=== PATIENT | female | born 1945 | race Caucasian/White ===

== ENCOUNTER 2020-06-09 13:49 | Inpatient (IN) | payer MEDICARE, OTHER ==
[~2020-06-09] VITALS: Ht 165.1 cm; Wt 108.7 kg
[~2020-06-09 13:49] MED LIST: ACET325T53 PO; ASCO500C17 PO; ASPI-1169 PO; BISA10SU11 RC; BUPR150T12 PO; DOCU-141 PO; GABA300C PO; LAMO200T2 PO; LEVO500T90 PO; MULT-439 PO; PANT40TA49 PO; RISP0.5T5 PO; TRAM50TA2 PO; ZINC220T4 PO
[2020-06-09] MEDS ORDERED: TRAM50TA2 PO (14:31)
[2020-06-09] MEDS ORDERED: RISP0.2515 PO (14:31)
[2020-06-09] MEDS ORDERED: ASCO500T10 PO (14:31)
[2020-06-09] MEDS ORDERED: ONDA4TAB5 PO (14:31)
[2020-06-09] MEDS ORDERED: ZINC50TA69 PO (14:31)
[2020-06-09] MEDS ORDERED: TEMA15CA PO (14:31)
[2020-06-09] MEDS ORDERED: ZINC56.713 TP (14:31)
[2020-06-09] MEDS ORDERED: ONDANSETRON HCL/PF 4 MG/2 ML VIAL IVP ONE (16:00)
[2020-06-09] MEDS ORDERED: MORPHINE SULFATE INJ 2 MG/ML DISP.SYRIN IV ONE (16:00)
[2020-06-09] MEDS ORDERED: MORPHINE SULFATE INJ 2 MG/ML DISP.SYRIN ONE (16:02)
[2020-06-09] MEDS ORDERED: ONDANSETRON HCL/PF 4 MG/2 ML VIAL ONE (16:02)
--- NOTE | 2020-06-09 16:17 | NUR ---
iv line inserted and morphine and zofran admin -pt stated she never really felt nauseaus before just was bringing up bile
--- NOTE | 2020-06-09 16:18 | NUR ---
us at bedside-
[2020-06-09 16:32] LABS: BASOPHILS # (AUTO) 0.1 /CMM (0.0-0.2); BASOPHILS % (AUTO) 0.8 % (0.0-2.0); CALCIUM, SERUM 9.3 mg/dL (8.5-10.1); CREATININE 1.2 mg/dL (0.6-1.3); EOSINOPHILS % (AUTO) 1.9 % (0.0-6.0); HEMATOCRIT 36 % (33-45); HEMOGLOBIN 11.8 g/dL (11.5-14.8); LYMPHOCYTES # (AUTO) 1.6 /CMM (0.8-4.8); LYMPHOCYTES % (AUTO) 14.8 % (20.0-44.0); MEAN CORPUSCULAR HGB CONC 33 g/dl (31.0-36.0); MEAN CORPUSCULAR VOLUME 78 fL (82-100); MONOCYTES # (AUTO) 0.6 /CMM (0.1-1.30); MONOCYTES % (AUTO) 5.8 % (2.0-12.0); NEUTROPHILS # (AUTO) 8.1 /CMM (1.8-8.9); NEUTROPHILS % (AUTO) 76.7 % (43.0-81.0); PLATELET COUNT (AUTO) 414 /CMM (150-450); POTASSIUM 4.2 mmol/L (3.5-5.1); RED BLOOD CELL COUNT(AUTO) 4.69 MIL/uL (4.0-5.2); WHITE BLOOD COUNT (AUTO) 10.5 K/uL (4.3-11.0)
--- NOTE | 2020-06-09 16:37 | NUR ---
pt refused to be straight cathed advised MD Slaughter-aware
[2020-06-09 16:38] LABS: BILIRUBIN,DIRECT 0.1 mg/dL (0.0-0.2); BILIRUBIN,TOTAL 0.3 mg/dL (0.2-1.0); TOTAL PROTEIN, SERUM 7.2 g/dL (6.4-8.2)
--- NOTE | 2020-06-09 16:45 | NUR ---
pt off th CT
--- NOTE | 2020-06-09 17:02 | NUR ---
pt back from ct
[2020-06-09] MEDS ORDERED: MEROPENEM 1,000 MG in IV NS 0.9% 100 ML IV ONE (17:30)
--- NOTE | 2020-06-09 17:30 | NUR ---
[facility] CALLED RESPIRATORY THERAPY ASSISTANT PAGED.
--- NOTE | 2020-06-09 18:31 | NUR ---
Covid 19 PCR test done-Rapid
--- NOTE | 2020-06-09 19:05 | NUR ---
rec'd report from catherine Rader for hi
--- NOTE | 2020-06-09 19:39 | NUR ---
COVID SWAB SAMPLE COLLECTED AND SENT TO THE LAB.
--- NOTE | 2020-06-09 20:07 | NUR ---
111-1 IS THE ROOM THE PT WILL BE MOVED TO PER NURSING WAREHOUSE OPERATIONS MANAGER.
--- NOTE | 2020-06-09 20:36 | NUR ---
gave report to BERNICE Jj for hi
--- NOTE | 2020-06-09 21:10 | NUR ---
ADMIT NOTE ADMITTED PT FROM ER TO ROOM 111-1 VIA [facility]. PT IS A/O X3, ABLE TO VERBALIZE NEEDS. ON ROOM AIR, O2 SAT 97%. NO SOB OR ANY RESPIRATORY DISTRESS. SAFETY TRANSFERRED FROM [facility] TO BED. NOTED WITH RIGHT BREAST FOLD EXCORIATION AND SACRUM WOUND. KEPT CLEAN AND DRY. WITH IV ON RIGHT HAND #22 PATENT AND INTACT. SAFETY MEASURES IMPLEMENTED. BED LOCKED AND IN LOWEST POSITION. SIDE RAILS UP X2. CALL LIGHT WITHIN REACH. WILL CONTINUE TO MONITOR.
--- NOTE | 2020-06-09 21:55 | NUR ---
RECEIVED REPORT FROM LAB, PATIENT IS COVID NEGATIVE FROM RAPID TEST. PCR STILL PENDING. WILL CONTINUE TO MONITOR.
[2020-06-09] MEDS ORDERED: IV NS 0.9% 1,000 ML IV PRN (22:30)
[2020-06-09] MEDS ORDERED: MAGNESIUM HYDROXIDE 30 ML UDC PO PRN (22:30)
[2020-06-09] MEDS ORDERED: ACETAMINOPHEN 325 MG TABLET PO PRN (22:30)
[2020-06-09] MEDS ORDERED: ZOLPIDEM TARTRATE 5 MG TABLET PO PRN (22:30)
[2020-06-09] MEDS ORDERED: Z GUARD REMEDY 2 OZ OINT TP PRN (22:30)
[2020-06-09] MEDS ORDERED: MEROPENEM 1 G in IV NS 0.9% 100 ML IV SCH (22:36)
[2020-06-09] MEDS ORDERED: MEROPENEM 1 G VIAL IV ONE (23:52)
[2020-06-10] MEDS ORDERED: MEROPENEM 1 G in IV NS 0.9% 100 ML IV SCH ×2 (02:00→05:00)
[2020-06-10 04:00] VITALS: BP 158/88
[2020-06-10] MEDS: MORPHINE SULFATE INJ 2 MG/ML DISP.SYRIN IV PRN (04:54)
[2020-06-10] MEDS: ONDANSETRON HCL/PF 4 MG/2 ML VIAL IVP PRN (05:04)
[2020-06-10 06:40] LABS: BASOPHILS # (AUTO) 0.1 /CMM (0.0-0.2); BASOPHILS % (AUTO) 0.6 % (0.0-2.0); EOSINOPHILS % (AUTO) 2.3 % (0.0-6.0); HEMATOCRIT 35 % (33-45); HEMOGLOBIN 11.7 g/dL (11.5-14.8); LYMPHOCYTES # (AUTO) 1.2 /CMM (0.8-4.8); LYMPHOCYTES % (AUTO) 13.9 % (20.0-44.0); MEAN CORPUSCULAR HGB CONC 33 g/dl (31.0-36.0); MEAN CORPUSCULAR VOLUME 76 fL (82-100); MONOCYTES # (AUTO) 0.6 /CMM (0.1-1.30); MONOCYTES % (AUTO) 7.1 % (2.0-12.0); NEUTROPHILS # (AUTO) 6.8 /CMM (1.8-8.9); NEUTROPHILS % (AUTO) 76.1 % (43.0-81.0); PLATELET COUNT (AUTO) 398 /CMM (150-450); RED BLOOD CELL COUNT(AUTO) 4.58 MIL/uL (4.0-5.2)
--- NOTE | 2020-06-10 06:52 | NUR ---
RN NOTE PATIENT ALERT AND ORIENTED X3. ABLE TO MAKE NEEDS KNOWN. NO SOB OR ANY RESPIRATORY DISTRESS. ON ROOM AIR, O2 SAT 96%. DENIES ANY PAIN AT THIS TIME. WITH IV ACCESS RIGHT HAND #22 PATENT AND INTACT. ALL NEEDS ATTENDED PROMPTLY. CALL LIGHT WITHIN REACH. WILL CONTINUE TO MONITOR.
[2020-06-10 06:59] LABS: CALCIUM, SERUM 9.2 mg/dL (8.5-10.1); CREATININE 1.2 mg/dL (0.6-1.3); PHOSPHORUS 3.5 mg/dL (2.5-4.9)
[2020-06-10] MEDS: PANTOPRAZOLE 40 MG TABLET.DR PO SCH (07:54)
[2020-06-10] MEDS: LamoTRIgine 100 MG TABLET PO SCH ×2 (08:39→09:00)
[2020-06-10] MEDS: MEROPENEM 1 G in IV NS 0.9% 100 ML IV SCH ×2 (08:39→20:27)
[2020-06-10] MEDS: risperiDONE 0.25 MG TABLET PO SCH ×2 (08:39→09:00)
[2020-06-10] MEDS: buPROPion SR 150 MG TABLET.ER PO SCH ×2 (08:40→09:00)
[2020-06-10] MEDS: DOCUSATE SODIUM 250 MG CAPSULE PO SCH ×2 (08:40→17:49)
[2020-06-10] MEDS: ZINC SULFATE 220 MG CAPSULE PO SCH (08:40)
[2020-06-10] MEDS: GABAPENTIN 300 MG CAPSULE PO SCH ×3 (08:40→17:00)
[2020-06-10] MEDS: ASPIRIN 81 MG TAB.CHEW PO SCH (08:40)
[2020-06-10] MEDS: ASCORBIC ACID 500 MG TABLET PO SCH (08:40)
[2020-06-10] MEDS: HEPARIN SODIUM, PORCINE 5000 UNITS/1 ML VIAL SQ SCH ×2 (08:41→20:31)
--- NOTE | 2020-06-10 09:00 | NUR ---
refused all psych meds, will notify
[2020-06-10] MEDS: MULTIVIT W/MINERALS 1 TAB TABLET PO SCH (09:07)
--- NOTE | 2020-06-10 10:33 | NUR ---
WOUND CARE CONSULT: REVIEWED CHART, NURSING DOCUMENTATION AND PHOTOS WHICH INDICATE BREASTFOLD REDNESS AND FULL THICKNESS SACRAL PRESSURE ULCER, PRESENT ON ADMISSION. PT IS ON PABLITO ISOFLEX LOW AIRLOSS BED. ALL SKIN PROTECTION RECOMMENDATIONS DISCUSSED WITH NURSING STAFF. SURGICAL CONSULT CALLED TO DR KOHANZADEH. DAVIDSON IN AGREEMENT WITH PLAN OF CARE.
[2020-06-10 12:00] VITALS: BP 158/88
[2020-06-10] MEDS: POLYETHYLENE GLYCOL 3350 17 GM POWD.PACK PO PRN (13:24)
--- NOTE | 2020-06-10 14:20 | NUR ---
Patient screaming, requesting to transfer her to psych facility on [facility], in [place], wants to talk to her psychiatrist
--- NOTE | 2020-06-10 14:45 | NUR ---
Having panic attack, screaming, stating she want so joe berman herself, Psych notifyed, Hospitalist notifyed, awaiting for orders
[2020-06-10] MEDS: NYSTATIN TOP POWDER 15 GM BOTTLE TP SCH ×2 (15:19→17:49)
[2020-06-10] MEDS ORDERED: LORAZEPAM INJ 2 MG/ML VIAL IV ONE (15:30)
--- NOTE | 2020-06-10 18:48 | NUR ---
RN CLOSING NOTES PATIENT RESTING COMFORTABLY IN BED, WITH SITTER 1:1, EVALUATED BY DR OROPEZA, COMFORT NEEDS MET, MEDICATIONS GIVEN, CHANGES DOCUMENTED, CALMIG RELAXATION ENVIRONMENT PROVIDED, WILL ENDORSE TO PM SHIFT RN FOR GIULIANA
--- NOTE | 2020-06-10 19:30 | NUR ---
RN NOTES RECEIVED PT IN BED. ALERT AND ORIENTED, CALM. NOT IN ANY DISTRESS. DENIES ANY SUICIDAL THOUGHTS. PT WITH 1 ON 1 SITTER. KEPT IN A QUIET AND SAFE ENVIRONMENT. PT WITH RHAND IV, PATENT AND INTACT. ALL SAFETY MEASURES IMPLEMENTED PER PROTOCOL, CALL LIGHT WITHIN REACH, BED LOCKED IN LOWEST POSITION. SIDE RAILS UP. WILL CONTINUE TO MONITOR.
[2020-06-10 20:00] VITALS: BP 110/58
[2020-06-10] MEDS: risperiDONE 1 MG TABLET PO SCH (21:38)
[2020-06-10] MEDS: LITHIUM CARBONATE 150 MG CAPSULE PO SCH (21:42)
[2020-06-11 04:00] VITALS: BP 124/66
--- NOTE | 2020-06-11 05:36 | NUR ---
RN NOTE PT COMPLAINED OF PAIN ON IV SITE ON R.HAND. NO SIGNS OF INFILTRATION NOTED. REMOVED IVF FOR NOW PER PT REQUEST, EXPLAINED RISKS AND BENEFITS. PT REFUSED TO HAVE NEW IV INSERTION AT THIS TIME. PT WANTS TO SLEEP. WILL CONTINUE TO MONITOR.
--- NOTE | 2020-06-11 06:43 | NUR ---
RN NOTES PT REMAIN IN BED, WAS CALM AND COOPERATIVE ALL NIGHT. NO DISTRESS NOTED. DENIES ANY SUICIDAL IDEATION. ALL DUE MEDS WERE TAKEN BY PT. SITTER AT BEDSIDE. STILL REFUSE TO HAVE NEW IV LINE. CURRENT IV ON RHAND PATENT AND INTACT. ALL SAFETY MEASURES MAINTAINED. WILL ENDORSE TO NEX SHIFT NURSE FOR GIULIANA.
[2020-06-11 08:00] VITALS: BP 147/89
[2020-06-11] MEDS: LamoTRIgine 100 MG TABLET PO SCH (09:00)
[2020-06-11] MEDS: MEROPENEM 1 G in IV NS 0.9% 100 ML IV SCH ×2 (09:00→09:26)
[2020-06-11] MEDS: LITHIUM CARBONATE 150 MG CAPSULE PO SCH ×2 (09:00→20:26)
[2020-06-11] MEDS: GABAPENTIN 300 MG CAPSULE PO SCH ×2 (09:00→17:00)
--- NOTE | 2020-06-11 09:00 | NUR ---
[facility] BERNICE SPARROW NOTIFIED FOR REPORT. REPORT GIVEN TO EMS FOR TRANSPORT. PT ON 2L O2 NO RESPIRATORY DISTRESS. ALL BELONGINGS SIGNED AND GIVEN WITH PATIENT. ALL IV AND WRIST BANDS REMOVED. Addendum: 06/11/20 at 0904 by BUDDY REYNOLDS RN DISREGARD NOTE; WRONG PATIENT CHARTED
[2020-06-11 09:05] LABS: BASOPHILS # (AUTO) 0.1 /CMM (0.0-0.2); EOSINOPHILS % (AUTO) 2.1 % (0.0-6.0); HEMATOCRIT 38 % (33-45); HEMOGLOBIN 12.4 g/dL (11.5-14.8); LYMPHOCYTES # (AUTO) 1.2 /CMM (0.8-4.8); LYMPHOCYTES % (AUTO) 15.1 % (20.0-44.0); MEAN CORPUSCULAR HGB CONC 32 g/dl (31.0-36.0); MEAN CORPUSCULAR VOLUME 78 fL (82-100); MONOCYTES # (AUTO) 0.5 /CMM (0.1-1.30); MONOCYTES % (AUTO) 6.2 % (2.0-12.0); NEUTROPHILS # (AUTO) 6.1 /CMM (1.8-8.9); NEUTROPHILS % (AUTO) 75.6 % (43.0-81.0); PLATELET COUNT (AUTO) 390 /CMM (150-450); RED BLOOD CELL COUNT(AUTO) 4.93 MIL/uL (4.0-5.2); WHITE BLOOD COUNT (AUTO) 8.1 K/uL (4.3-11.0)
[2020-06-11] MEDS: DOCUSATE SODIUM 250 MG CAPSULE PO SCH ×2 (09:13→17:40)
[2020-06-11] MEDS: PANTOPRAZOLE 40 MG TABLET.DR PO SCH (09:13)
[2020-06-11] MEDS: MULTIVIT W/MINERALS 1 TAB TABLET PO SCH (09:13)
[2020-06-11] MEDS: buPROPion SR 150 MG TABLET.ER PO SCH (09:13)
[2020-06-11] MEDS: ASPIRIN 81 MG TAB.CHEW PO SCH (09:13)
[2020-06-11] MEDS: NYSTATIN TOP POWDER 15 GM BOTTLE TP SCH ×2 (09:14→17:40)
[2020-06-11] MEDS: ASCORBIC ACID 500 MG TABLET PO SCH (09:14)
[2020-06-11] MEDS: ZINC SULFATE 220 MG CAPSULE PO SCH (09:14)
[2020-06-11] MEDS: HEPARIN SODIUM, PORCINE 5000 UNITS/1 ML VIAL SQ SCH ×2 (09:15→20:27)
[2020-06-11 09:20] LABS: CALCIUM, SERUM 9.6 mg/dL (8.5-10.1); CREATININE 1.2 mg/dL (0.6-1.3); PHOSPHORUS 3.3 mg/dL (2.5-4.9); POTASSIUM 4.1 mmol/L (3.5-5.1)
--- NOTE | 2020-06-11 09:55 | NUR ---
PT REFUSED 0900 GABAPENDTIN,LAMOTRIGINE, AND LITHIUM. PATIENT STATES THAT SHE DOES NOT HAVE HISTORY OF SCHIZOPRRENIA, BIPOLAR, OR OTHER PSYCH CONDITIONS, STATING "THEY MESSED UP BY PUTTING THAT IN THE COMPUTER SYSTEM AWHILE AGO, DON'T YOU THINK I WOULD KNOW IF I HAD IT". PT ENDORSES SUICIDAL IDEATION WITH NO PLAN, BUT STATES THAT IF THERE WAS AN OPPORTUNITY TO KILL HERSELF SHE WOULD TAKE IT. 1:1 SITTER AT BEDSIDE. WILL ENDORSE TO PRIMARY AND MICHELLE DAVIDSON.
--- NOTE | 2020-06-11 10:00 | NUR ---
PT HAS IV IN THE HAND, BUT COMPLAINS OF PAIN. WHEN ASKED IF RN CAN START NEW IV, PT REFUSES, STATES SHE "MENTALLY" CANNOT TOLERATE IT AT THE MOMENT. TOM REGAN HELD FOR THE MOMENT. WILL ENDORSE TO PRIMARY
[2020-06-11] MEDS ORDERED: THERAHONEY GEL 1.5 OZ TUBE TP PRN (10:30)
[2020-06-11] MEDS: CIPROFLOXACIN HCL 250 MG TABLET PO SCH ×2 (13:10→20:26)
[2020-06-11] MEDS: METRONIDAZOLE 500 MG TABLET PO SCH ×2 (13:10→20:26)
[2020-06-11] MEDS ORDERED: LORAZEPAM 1 MG TABLET PO PRN (14:30)
[2020-06-11] MEDS ORDERED: LORAZEPAM INJ 2 MG/ML VIAL IV PRN (15:00)
[2020-06-11 16:00] VITALS: BP 149/75
--- NOTE | 2020-06-11 16:00 | NUR ---
PER GPS, PT UNABLE TO TRANSFER FOR PSYCH TREATMENT DUE TO PATIENT HAVING A SACRAL WOUND, THAT NEEDS TO BE DEBRIDED. PT REFUSES CONSENT FOR PROCEDURE. PER MD OROPEZA, MAY TRY CONTACTING [facility] FOR PSYCH TREATMENT AT [phone], PATIENT FORMS FAXXED OVER, AWAITING RESPONSE. PRIMARY MANAGER ER PURA ANTONIO NOTIFIED.
[2020-06-11] MEDS: POLYETHYLENE GLYCOL 3350 17 GM POWD.PACK PO PRN (17:40)
--- NOTE | 2020-06-11 19:30 | NUR ---
RN OPENING NOTES: RECEIVED PT A/OX 3 IN BED RESTING COMFORTABLY WITH SITTER IN THE ROOM. PATIENT IN NO S/SX OF ACUTE DISTRESS AT THIS TIME. NO SOB NOTED. PATIENT'S BREATHING IS EVEN AND UNLABORED. PATIENT IS ON ROOM AIR; TOLERATING WELL 95% AT THE TIME OF RECEIVED. PATIENT ON MECHANICAL SOFT DIET; TOLERATES WELL. NOTED IV SITE ON R HAND #22; PATENT, INTACT AND FLUSHING WELL; NO S/S OF INFECTION OR INFILTRATION. NO RUNNING IVF AT THE MOMENT. SAFETY MEASURES HAVE BEEN PROVIDED AND IMPLEMENTED. PATIENT BED ALARM IS ON. HEAD OF BED ELEVATED. BED IS LOCKED, IN LOWEST POSITION AND SIDE RAILS UP. CALL LIGHT WITHIN REACH OF THE PATIENT. APPLICABLE ISOLATION PRECAUTIONS IN PLACE. WILL CONTINUE TO MONITOR AND REASSESS FOR ANY CHANGES AND WILL CARRY OUT ANY ONGOING AND ACTIVE MD ORDER.
--- NOTE | 2020-06-11 19:31 | NUR ---
PATIENT REMAINS IN BED WITH 1:1 SITTER, PATIENT CONTINUES TO EXPRESS SI. ALL NEEDS ENDORSED TO ONCOMING RN TO OBTAIN PROCEDURAL CONSENT FOR DEBRIDEMENT PROCEDURE. ONCOMING RN NOTIFIED OF PENDING PLACEMENT FOR [facility], FORMS FAXXED OVER. ALL SAFETY MEASURES IN PLACE. REPORT GIVEN TO ONCOMING RN FOR GIULIANA
[2020-06-11 20:00] VITALS: BP 136/77
[2020-06-11] MEDS: risperiDONE 1 MG TABLET PO SCH (20:26)
--- NOTE | 2020-06-11 23:00 | NUR ---
RN NOTES PATIENT REMAINS IN NO ACUTE RESPIRATORY DISTRESS AT THIS TIME, NO CHANGES TO CONDITION/STATUS. INVESTIGATION DIVISION CAPTAIN WELL AWARE. WILL CONTINUE TO MONITOR AND REASSESS FOR ANY CHANGES THROUGHOUT THE SHIFT
[2020-06-11] MEDS: ZOLPIDEM TARTRATE 5 MG TABLET PO PRN (23:49)
[2020-06-12] MEDS: TRAMADOL HCL 50 MG TABLET PO PRN (02:31)
--- NOTE | 2020-06-12 03:00 | NUR ---
RN NOTES NO CHANGES IN PATIENT CONDITION AT THIS TIME PATIENT VITALS STABLE, NO SIGNS OF ACUTE RESPIRATORY DISTRESS. PATIENT STILL IN BED SLEEPING COMFORTABLY. NO COMPLAINTS OF PAIN OR ANY DISCOMFORT AT THIS TIME. WILL CONTINUE TO MONITOR AND REASSESS FOR ANY CHANGES THROUGHOUT THE SHIFT.
[2020-06-12 04:00] VITALS: BP_SYST 115; BP_SYST 136; BP_DIAS 52; BP_DIAS 77
[2020-06-12] MEDS: METRONIDAZOLE 500 MG TABLET PO SCH ×3 (04:04→20:46)
[2020-06-12] MEDS: MORPHINE SULFATE INJ 2 MG/ML DISP.SYRIN IV PRN (04:05)
--- NOTE | 2020-06-12 04:30 | NUR ---
RN NOTES NOTED IV LINE ON R HAND TO BE DISLODGED AND NON-PATENT. FACILITATED CHANGE AND REINSERTION OF IV LINE @ L HAND #24. MATERIAL ENGINEER MADE AWARE. WILL CONTINUE TO MONITOR AND ASSESS
[2020-06-12] MEDS: ONDANSETRON HCL/PF 4 MG/2 ML VIAL IVP PRN (04:39)
--- NOTE | 2020-06-12 05:00 | NUR ---
RN NOTES PATIENT CARE DONE; WOUND CARE DONE ORDERED. NET SOFTWARE ARCHITECT MADE AWARE. WILL CONTINUE TO MONITOR AND ASSESS UNTIL END OF THE SHIFT.
--- NOTE | 2020-06-12 06:42 | NUR ---
RN CLOSING NOTE: PATIENT REMAINS IN ROOM IN NO SIGNS OF RESPIRATORY DISTRESS, PATIENT STILL ON ROOM AIR-;TOLERATING WELL SATURATING @ >95% SP02. SAFETY MEASURES IMPLEMENTED, BED IN LOWEST POSITION, LOCKED, SIDE RAILS UP, CALL LIGHT WITHIN REACH. ALL NEEDS AND ORDERS ADDRESSED DURING THE SHIFT. IV ACCESS MAINTAINED INTACT, SECURED AND FLUSHING WELL. ALL DUE MEDS GIVEN ORDERED & SCHEDULED ; PATIENT TOLERATED WELL. PATIENT KEPT CLEAN AND COMFORTABLE WITHIN THE SHIFT. PATIENT ENDORSED TO INCOMING SHIFT RN WITH STABLE VITAL SIGN AND FOR CONTINUITY OF CARE.
--- NOTE | 2020-06-12 07:30 | NUR ---
MAJOR ACCOUNT MANAGER OPENING NOTES Patient is alert and oreinted and in bed , shows no s/s of respiratory distress. Patient is breathing even and unlabored. On room air with 02 sat of 98%. No c/o pain or discomfort. Sitter noted at bedside and no report of SI by night nurse. Patient will be monitored. Call light with in reach. Bed is in lowest and locked position.
[2020-06-12] MEDS: GABAPENTIN 300 MG CAPSULE PO SCH ×3 (09:00→17:00)
[2020-06-12] MEDS: MULTIVIT W/MINERALS 1 TAB TABLET PO SCH (09:06)
[2020-06-12] MEDS: ASPIRIN 81 MG TAB.CHEW PO SCH (09:06)
[2020-06-12] MEDS: CIPROFLOXACIN HCL 250 MG TABLET PO SCH ×2 (09:06→20:45)
[2020-06-12] MEDS: ZINC SULFATE 220 MG CAPSULE PO SCH (09:06)
[2020-06-12] MEDS: PANTOPRAZOLE 40 MG TABLET.DR PO SCH (09:06)
[2020-06-12] MEDS: DOCUSATE SODIUM 250 MG CAPSULE PO SCH ×2 (09:07→17:54)
[2020-06-12] MEDS: ASCORBIC ACID 500 MG TABLET PO SCH (09:07)
[2020-06-12] MEDS: LamoTRIgine 100 MG TABLET PO SCH (09:07)
[2020-06-12] MEDS: LITHIUM CARBONATE 150 MG CAPSULE PO SCH ×2 (09:07→20:46)
[2020-06-12] MEDS: buPROPion SR 150 MG TABLET.ER PO SCH (09:07)
[2020-06-12] MEDS: HEPARIN SODIUM, PORCINE 5000 UNITS/1 ML VIAL SQ SCH ×2 (09:31→20:50)
[2020-06-12] MEDS: NYSTATIN TOP POWDER 15 GM BOTTLE TP SCH ×2 (09:33→17:55)
--- NOTE | 2020-06-12 10:00 | NUR ---
Patient seen by auto adjudication specialist KATALINA and refused to have debridement done at this time for sacral wound.
--- NOTE | 2020-06-12 11:15 | NUR ---
Physical Therapy Teacher Services: Per ROBERT nurse, the pt. is requesting someone to pray with her. SW called [facility] and father Mc available to pray with pt. SW transferred Father Rashard to patient's room so he can pray with pt. over the phone. SW will be available as needed.
[2020-06-12 12:00] VITALS: BP 132/68
--- NOTE | 2020-06-12 12:36 | NUR ---
Patient noted with left hand iv leaking and dislodged. Blocking Machine Operator Second and staff attempted twice and patient refused any further and did not want IV in. Informed Dr Quiroz and received order to change her prn IV medis for Morphine , ativan and zofran to PO. Orders noted.
[2020-06-12 14:10] LABS: BASOPHILS # (AUTO) 0.1 /CMM (0.0-0.2); BASOPHILS % (AUTO) 0.8 % (0.0-2.0); EOSINOPHILS % (AUTO) 1.8 % (0.0-6.0); HEMATOCRIT 42 % (33-45); HEMOGLOBIN 13.6 g/dL (11.5-14.8); LYMPHOCYTES # (AUTO) 1.5 /CMM (0.8-4.8); LYMPHOCYTES % (AUTO) 20.5 % (20.0-44.0); MEAN CORPUSCULAR HGB CONC 33 g/dl (31.0-36.0); MEAN CORPUSCULAR VOLUME 77 fL (82-100); MONOCYTES # (AUTO) 0.5 /CMM (0.1-1.30); MONOCYTES % (AUTO) 6.4 % (2.0-12.0); NEUTROPHILS # (AUTO) 5.3 /CMM (1.8-8.9); NEUTROPHILS % (AUTO) 70.5 % (43.0-81.0); PLATELET COUNT (AUTO) 363 /CMM (150-450); RED BLOOD CELL COUNT(AUTO) 5.42 MIL/uL (4.0-5.2); WHITE BLOOD COUNT (AUTO) 7.5 K/uL (4.3-11.0)
[2020-06-12] MEDS: ONDANSETRON 4 MG TAB.RAPDIS PO PRN (14:14)
[2020-06-12 14:24] LABS: CALCIUM, SERUM 9.9 mg/dL (8.5-10.1); CARBON DIOXIDE 27 mmol/L (21-32); CHLORIDE 100 mmol/L (98-107); CREATININE 1.4 mg/dL (0.6-1.3); GLUCOSE 109 mg/dL (74-106); PHOSPHORUS 3.8 mg/dL (2.5-4.9); POTASSIUM 4.6 mmol/L (3.5-5.1); SODIUM SERUM 135 mmol/L (136-145); UREA NITROGEN, BLOOD 22 mg/dL (7-18)
[2020-06-12 15:10] LABS: EOSINOPHILS % (MANUAL) 1 % (0-4); LYMPHOCYTES % (MANUAL) 28 % (16-48); MONOCYTES % (MANUAL) 8 % (0-11.0); NEUTROPHILS % (MANUAL) 63 (42-76)
[2020-06-12] MEDS: LORAZEPAM 1 MG TABLET PO PRN (18:17)
--- NOTE | 2020-06-12 18:53 | NUR ---
PURCHASING INTERN ClOSING NOTES Patient is alert and oriented and in bed , shows no s/s of respiratory distress. Patient is breathing even and unlabored. On room air with 02 sat of 99%. No c/o pain or discomfort.Patient provided anti anxiety medication with good effect at 1817. No iv access due to patient refusal.MD aware. Patient will be monitored. Call light with in reach. Bed is in lowest and locked position. Will endorse to next shift for GIULIANA. Patient did not verbalize any suicidal ideation. Patient compliant with all medications except refused gabapentin..
--- NOTE | 2020-06-12 19:30 | NUR ---
RN OPENING NOTES RECEIVED PT IN BED. AWAKE, A/O X4. PT IS COOPERATIVE. ON ROOM AIR, NO RESP DISTRESS OR SOB NOTED. PT IS M/S MONITORING. PT DENIES PAIN AT THIS TIME. NO IV SITE NOTED. AWARE, ENDORSED BY PREVIOUS OK TO NOT HAVE AT THIS TIME. PT DENIES SI/PLANS TO HARM SELF OR OTHERS. SAFETY MEASURES IN PLACE. HOB ELEVATED. SIDE RAILS UP X2. BED LOCKED IN LOWEST POSITION WITH BED ALARM ON. CALL LIGHT WITHIN REACH. WILL CONT TO CLOSELY MONITOR.
[2020-06-12 20:00] VITALS: BP 139/91
[2020-06-12] MEDS: risperiDONE 1 MG TABLET PO SCH (20:46)
--- NOTE | 2020-06-13 01:00 | NUR ---
PT REQUESTED DENI. VERBALIZED SHE USUALLY GETS TIRED AROUND 0130 BUT CAN NOT REMAIN ASLEEP FOR LONG PERIODS OF TIME. REQUESTED MEDICATION TO HELP SLEEP. WILL ADMIN PRN AMBIEN ORDERED.
--- NOTE | 2020-06-13 01:00 | NUR ---
PT HAD BM X1, BROWN FORMED HARD
[2020-06-13] MEDS: ZOLPIDEM TARTRATE 5 MG TABLET PO PRN (01:18)
--- NOTE | 2020-06-13 02:56 | NUR ---
PT IS CURRENTLY RESTING AT THIS TIME, WILL CONT TO MONITOR CLOSELY.
--- NOTE | 2020-06-13 05:05 | NUR ---
PT REFUSED VITALS AND REFUSED 0500 MED ABX, EXPLAINED RISKS AND BENEFITS X2, PT VERBALIZED SHE HASNT SLEPT WELL DOES NOT FEEL GOOD AT THIS TIME AND WOULD LIKE TO GO BACK TO SLEEP.
[2020-06-13] MEDS: METRONIDAZOLE 500 MG TABLET PO SCH ×3 (05:29→21:21)
[2020-06-13] MEDS: MAG HYDROX/AL HYDROX/SIMETH 30 ML UDC PO PRN (06:17)
--- NOTE | 2020-06-13 06:20 | NUR ---
PT C/O OF STOMACH BURNING, REQUESTS MEDICATION FOR INDIGESTION AND GENERALIZED PAIN. ASKED FOR ANOTHER VITALS ASSESSMENT, PT VERBALIZED NEED FOR MEDICATION AND WANTS TO FEEL BETTER FIRST. WILL F/U AND ENDORSE TO AM NURSE.
[2020-06-13] MEDS: TRAMADOL HCL 50 MG TABLET PO PRN ×2 (06:23→18:12)
--- NOTE | 2020-06-13 06:30 | NUR ---
RN CLOSING NOTES PT REMAINS IN BED, RESTING. SLEPT WELL TOWARDS END OF SHIFT. NO SIGNIFICANT CHANGES IN PT CONDITION. STILL ON ROOM AIR, TOLERATING WELL NO RESP DISTRESS NOTED OR SOB. BED BATH DONE, WOUND TX DONE, PT CHANGED X3. NEEDS ATTENDED. PT AFEBRILE. SAFETY MEASURES IN PLACE. HOB ELEVATED. BED LOCKED IN LOWEST POSITION WITH BED ALARM ON. CALL LIGHT WITHIN REACH. SIDE RAILS X2. WILL ENDORSE TO AM NURSE FOR CONTINUATION OF CARE.
--- NOTE | 2020-06-13 06:51 | NUR ---
PT REMAINS WITH COLD COMPRESS AND SAYS LESS BURNING STOMACH PAIN NOTED. WILL ENDORSE TO ONCOMING NURSE
--- NOTE | 2020-06-13 06:57 | NUR ---
PT VITALS, TEMP 98.2 BP 112/58 RR 22 PULSE 91 O2 SAT 94%
[2020-06-13 08:00] VITALS: BP 129/64
[2020-06-13] MEDS: ASPIRIN 81 MG TAB.CHEW PO SCH (08:13)
[2020-06-13] MEDS: ASCORBIC ACID 500 MG TABLET PO SCH (08:13)
[2020-06-13] MEDS: buPROPion SR 150 MG TABLET.ER PO SCH (08:13)
[2020-06-13] MEDS: PANTOPRAZOLE 40 MG TABLET.DR PO SCH (08:13)
[2020-06-13] MEDS: LamoTRIgine 100 MG TABLET PO SCH (08:14)
[2020-06-13] MEDS: CIPROFLOXACIN HCL 250 MG TABLET PO SCH ×2 (08:14→21:21)
[2020-06-13] MEDS: MULTIVIT W/MINERALS 1 TAB TABLET PO SCH (08:14)
[2020-06-13] MEDS: DOCUSATE SODIUM 250 MG CAPSULE PO SCH ×2 (08:14→16:17)
[2020-06-13] MEDS: LITHIUM CARBONATE 150 MG CAPSULE PO SCH ×2 (08:14→21:21)
[2020-06-13] MEDS: HEPARIN SODIUM, PORCINE 5000 UNITS/1 ML VIAL SQ SCH ×2 (08:14→21:27)
[2020-06-13] MEDS: GABAPENTIN 300 MG CAPSULE PO SCH ×4 (08:14→16:20)
[2020-06-13] MEDS: ZINC SULFATE 220 MG CAPSULE PO SCH (08:14)
--- NOTE | 2020-06-13 09:25 | NUR ---
RN NOTE RECEIVED PATIENT IN BED, AAO X4 WITH NO CURRENT C/O PAIN OR DISCOMFORTS. ROOM AIR WITH NO ACUTE RESPIRATORY DISTRESS NOR SOB NOTED. NO IV SITE NOTED. PT STATES SHE WANTS TO BUT DENIES SI/HI PLANS TO HARM SELF OR OTHERS. SITTER AT BEDSIDE. HOB ELEVATED, SIDE RAILS UP X2, BED LOCKED IN LOWEST POSITION WITH BED ALARM ON. CALL LIGHT AND PERSONAL ITEMS WITHIN REACH. WILL CONTINUE TO MONITOR.
[2020-06-13] MEDS: NYSTATIN TOP POWDER 15 GM BOTTLE TP SCH ×2 (09:29→16:12)
--- NOTE | 2020-06-13 09:29 | NUR ---
RN NOTE PATIENT REFUSED TO HAVE DRESSING CHANGED AT THIS TIME. WILL ATTEMPT AT LATER TIME.
[2020-06-13 09:46] LABS: BASOPHILS # (AUTO) 0.1 /CMM (0.0-0.2); BASOPHILS % (AUTO) 0.9 % (0.0-2.0); EOSINOPHILS % (AUTO) 2.1 % (0.0-6.0); HEMATOCRIT 39 % (33-45); HEMOGLOBIN 12.4 g/dL (11.5-14.8); LYMPHOCYTES # (AUTO) 1.3 /CMM (0.8-4.8); LYMPHOCYTES % (AUTO) 15.1 % (20.0-44.0); MEAN CORPUSCULAR HGB CONC 32 g/dl (31.0-36.0); MEAN CORPUSCULAR VOLUME 78 fL (82-100); MONOCYTES # (AUTO) 0.7 /CMM (0.1-1.30); MONOCYTES % (AUTO) 7.8 % (2.0-12.0); NEUTROPHILS # (AUTO) 6.3 /CMM (1.8-8.9); NEUTROPHILS % (AUTO) 74.1 % (43.0-81.0); PLATELET COUNT (AUTO) 372 /CMM (150-450); RED BLOOD CELL COUNT(AUTO) 4.99 MIL/uL (4.0-5.2); WHITE BLOOD COUNT (AUTO) 8.5 K/uL (4.3-11.0)
[2020-06-13 09:55] LABS: CALCIUM, SERUM 9.7 mg/dL (8.5-10.1); CARBON DIOXIDE 26 mmol/L (21-32); CHLORIDE 100 mmol/L (98-107); CREATININE 1.5 mg/dL (0.6-1.3); GLUCOSE 123 mg/dL (74-106); SODIUM SERUM 136 mmol/L (136-145); UREA NITROGEN, BLOOD 24 mg/dL (7-18)
[2020-06-13] MEDS: ONDANSETRON 4 MG TAB.RAPDIS PO PRN (12:41)
--- NOTE | 2020-06-13 12:41 | NUR ---
RN NOTE PATIENT NOTED WITH WHITE FOAMY SALIVA FROM MOUTH AND STATES THAT SHE HAS NAUSEA AND IS UNABLE TO CONTROL IT. REQUEST SOMETHING FOR NAUSEA. NO ACUTE DISTRESS NOTED. CONSUMED LUNCH WITHOUT DIFFICULTY.
[2020-06-13 16:14] VITALS: BP 138/59
--- NOTE | 2020-06-13 16:20 | NUR ---
RN NOTE PATIENT REFUSED GABAPENTIN THIS SHIFT STATING IT ONLY MAKES HER NEUROPATHY WORSE.
--- NOTE | 2020-06-13 18:06 | NUR ---
RN CLOSING NOTE NO SIGNIFICANT CHANGE IN PATIENT CONDITION. REMAINS AAOX4, RA, NO DISTRESS NOTED. DRESSING CHANGED TO SACRAL AREA PER ORDERS. DENIES PAIN THIS SHIFT. NO VOMIT. TOLERATED MEALS AND PO FLUIDS WELL. NO MORE EPISODES OF FROTHY MUCOUS FROM MOUTH. SAFETY MEASURES ONGOING. CALL LIGHT AND PERSONAL ITEMS WITHIN REACH.
--- NOTE | 2020-06-13 19:16 | NUR ---
MS RN: CONTINUITY OF CARE Patient in bed, A/O x4. No IV peripheral line per BERNICE Goodman MD was aware. Refused to reposition at this time, no c/o pain. Covid 19 Rapid and PCR negative 06/09/20. Fall precaution maintained.
[2020-06-13 20:00] VITALS: BP 114/51
[2020-06-13] MEDS: risperiDONE 1 MG TABLET PO SCH (21:21)
--- NOTE | 2020-06-13 21:29 | NUR ---
MS RN: ANTICOAGULANT H/H 12. Platelet 372 no bleeding. Heparin injection given co-signed by Ruby/RN.
[2020-06-14] MEDS: ZOLPIDEM TARTRATE 5 MG TABLET PO PRN
--- NOTE | 2020-06-14 02:30 | NUR ---
MS QUEEN NOTES FALL ASLEEP AT 2200,AWAKE THIS TIME AND ASK FOR SLEEPING PILL.TRAZODONE 25MG PO GIVEN Addendum: 06/15/20 at 0250 by ELZA CAMERON RN MELINDA LIMA FOR 06/15 AT 0230
[2020-06-14 04:47] VITALS: BP 116/43
[2020-06-14 05:51] LABS: BASOPHILS # (AUTO) 0.1 /CMM (0.0-0.2); BASOPHILS % (AUTO) 1.1 % (0.0-2.0); EOSINOPHILS % (AUTO) 3.9 % (0.0-6.0); HEMATOCRIT 38 % (33-45); LYMPHOCYTES # (AUTO) 1.7 /CMM (0.8-4.8); MEAN CORPUSCULAR HGB CONC 32 g/dl (31.0-36.0); MEAN CORPUSCULAR VOLUME 78 fL (82-100); MONOCYTES # (AUTO) 0.7 /CMM (0.1-1.30); MONOCYTES % (AUTO) 8.5 % (2.0-12.0); NEUTROPHILS # (AUTO) 5.2 /CMM (1.8-8.9); NEUTROPHILS % (AUTO) 65.5 % (43.0-81.0); PLATELET COUNT (AUTO) 348 /CMM (150-450); RED BLOOD CELL COUNT(AUTO) 4.81 MIL/uL (4.0-5.2)
[2020-06-14] MEDS: METRONIDAZOLE 500 MG TABLET PO SCH ×3 (06:06→21:04)
[2020-06-14 06:18] LABS: CALCIUM, SERUM 10.1 mg/dL (8.5-10.1); CARBON DIOXIDE 26 mmol/L (21-32); CHLORIDE 99 mmol/L (98-107); CREATININE 1.4 mg/dL (0.6-1.3); GLUCOSE 96 mg/dL (74-106); MAGNESIUM 2.3 mg/dL (1.8-2.4); POTASSIUM 4.1 mmol/L (3.5-5.1); SODIUM SERUM 133 mmol/L (136-145); UREA NITROGEN, BLOOD 23 mg/dL (7-18)
--- NOTE | 2020-06-14 06:32 | NUR ---
MS RN: END OF SHIFT REPORT Stable oxygen saturation on room air. On PO Cipro and Metronidazole, no c/o abdominal pain, no N/V. Sacral wound dressing changed, denies pain. Sitter at bedside, no suicidal ideation. Plan for dc to [facility], pending bed available. Will endorse to oncoming RN.
--- NOTE | 2020-06-14 07:29 | NUR ---
MS RN NOTE PATIENT IN BED , ALERT ORIENTED, ABLE TO EAT BREAKFAST AT THIS TIME ,ON RA, NO SOB NOTED AT THIS TIME , NO IV HL AT THIS TIME ,PLAN OF CARE DISCUSSED WITH PATIENT ,NO SUICIDAL IDEATION NOTED AT THIS TIME ,BED IN LOWEST AND LOCKED POSITION , CALL LIGHT WITHIN REACH , WILL CONT TO MONITOR
[2020-06-14] MEDS: PANTOPRAZOLE 40 MG TABLET.DR PO SCH (07:50)
[2020-06-14] MEDS: LORAZEPAM 1 MG TABLET PO PRN ×2 (07:50→14:01)
--- NOTE | 2020-06-14 07:52 | NUR ---
ms rn note anxious and restless Ativan po given as ordered able to eat breakfast well
[2020-06-14 08:00] VITALS: BP 132/79
[2020-06-14] MEDS: LITHIUM CARBONATE 150 MG CAPSULE PO SCH ×2 (08:11→21:04)
[2020-06-14] MEDS: LamoTRIgine 100 MG TABLET PO SCH (08:12)
[2020-06-14] MEDS: buPROPion SR 150 MG TABLET.ER PO SCH (08:12)
[2020-06-14] MEDS: CIPROFLOXACIN HCL 250 MG TABLET PO SCH ×2 (08:12→21:32)
[2020-06-14] MEDS: DOCUSATE SODIUM 250 MG CAPSULE PO SCH ×2 (08:13→16:12)
[2020-06-14] MEDS: ASCORBIC ACID 500 MG TABLET PO SCH (08:13)
[2020-06-14] MEDS: ASPIRIN 81 MG TAB.CHEW PO SCH (08:13)
[2020-06-14] MEDS: ZINC SULFATE 220 MG CAPSULE PO SCH (08:13)
[2020-06-14] MEDS: MULTIVIT W/MINERALS 1 TAB TABLET PO SCH (08:13)
[2020-06-14] MEDS: GABAPENTIN 300 MG CAPSULE PO SCH ×3 (08:13→16:13)
[2020-06-14] MEDS: HEPARIN SODIUM, PORCINE 5000 UNITS/1 ML VIAL SQ SCH ×2 (08:14→21:06)
[2020-06-14] MEDS: NYSTATIN TOP POWDER 15 GM BOTTLE TP SCH ×2 (08:22→16:14)
[2020-06-14] MEDS: TRAMADOL HCL 50 MG TABLET PO PRN (08:50)
[2020-06-14 09:13] VITALS: BP 132/79
--- NOTE | 2020-06-14 09:16 | NUR ---
ms rn note c\o headache, tramadol po given, will monitor
--- NOTE | 2020-06-14 09:38 | NUR ---
MS BERNICE NEVES RN .NET PROGRAMMER AT BEDSIDE AWARE THAT PATIENT REFUSED NEURONTIN NO NEW ORDER GIVEN AT BEDSIDE Addendum: 06/14/20 at 0955 by CATY HENRY RN REPORTED TO PURA QUEEN CASINO CHANGE ATTENDANT THAT PATIENT WANTS TRAZODONE AND MAG STATED NOT AT THIS TIME
[2020-06-14] MEDS: MAG HYDROX/AL HYDROX/SIMETH 30 ML UDC PO PRN ×2 (14:01→20:51)
--- NOTE | 2020-06-14 14:04 | NUR ---
MS RN NOTE ATIVAN PO GIVEN ORDERED FOR ANXIETY , WILL CONT TO MONITOR
--- NOTE | 2020-06-14 15:39 | NUR ---
MS RN NOTE DR OROPEZA PSYCHIATRIST AT BEDSIDE , AND NOTIFIED THAT REFUSED NEURONTIN PO AND WANTS TO HAVE TRAZODONE FOR SLEEPING, STATED THAT CHAYOIEN NOT HELPING HER ALSO NEW ORDER FOJackie BO GIVEN ,WILL F\U Addendum: 06/14/20 at 1618 by CATY HENRY RN DR OROPEZA PSYCHIATRIST GAVE ORDER FOR TRAZODONE AT [facility]
[2020-06-14 16:00] VITALS: BP 121/75
--- NOTE | 2020-06-14 18:24 | NUR ---
ms rn note transferred to room 312 bed 1 as ordered, went to [facility] with stable condition , report given to olya alexander
--- NOTE | 2020-06-14 18:25 | NUR ---
RN NOTES BEDSIDE ENDORSEMENT RECEIVED FROM BERNICE BYRNE.
--- NOTE | 2020-06-14 19:00 | NUR ---
MS RN CLOSING NOTES PATIENT IS IN BED, AWAKE AND VERBALLY RESPONSIVE. A/O X3-4, ABLE TO MAKE NEEDS KNOWN. NO VERBALIZATION OF SUICIDAL IDEATION AT THIS TIME; SITTER AT BEDSIDE. PATIENT REFUSED IV ACCESS AND SACRAL WOUND DEBRIDEMENT, MD AWARE PER BERNICE BYRNE. NO COMPLAINT OF PAIN AT THIS TIME. PER PATIENT, SHE ALREADY ATE WHEN SHE WAS AT PREVIOUS UNIT; OFFERED WATER, TAKEN FAIRLY. SAFETY PRECS IN PLACE. WILL ENDORSE TO MACHINE SIGN WRITER RN FOR GIULIANA.
--- NOTE | 2020-06-14 19:30 | NUR ---
MS RN NOTES RECEIVED ON BED A/O X4,NOT IN ANY FORM OF DISTRESS,SITTER AT BEDSIDE FOR SUICIDAL IDEATION.NO IV ACCESS,MD AWARE.DNR/DNI STATUS.CALL LIGHT IN REACH,NEEDS ANTICIPATED.
[2020-06-14 20:00] VITALS: BP 138/69
[2020-06-14] MEDS: ONDANSETRON 4 MG TAB.RAPDIS PO PRN (20:46)
--- NOTE | 2020-06-14 20:46 | NUR ---
MS RN NOTES FEELING NAUSEATED,ZOFRAN ODT 4MG PO GIVEN ORDERED.
--- NOTE | 2020-06-14 20:51 | NUR ---
MS RN NOTES FEELING HEARTBURN,MAALOX 30ML PO GIVEN PER PATIENT REQUEST.
[2020-06-14] MEDS: risperiDONE 1 MG TABLET PO SCH (21:05)
[2020-06-14] MEDS ORDERED: CIPROFLOXACIN HCL 500 MG TABLET ONE (21:18)
[2020-06-14] MEDS ORDERED: CIPROFLOXACIN HCL 500 MG TABLET PO ONE (21:30)
[2020-06-14] MEDS: TRAZODONE 50 MG TABLET PO SCH (22:00)
[2020-06-15] MEDS: TRAZODONE 50 MG TABLET PO SCH ×2 (02:27→23:55)
--- NOTE | 2020-06-15 02:30 | NUR ---
MS RN NOTES REFUSED TO TAKE PICTURE OF HER WOUNDS.SHE WANTS ON DAYTIME.
[2020-06-15] MEDS: MORPHINE SULFATE IR 15 MG TABLET PO PRN ×2 (03:58→21:13)
--- NOTE | 2020-06-15 03:58 | NUR ---
MS RN NOTES C/O GENERALIZED BODY PAIN,8/10 ON PAIN SCALE,MEDICATED WITH OXY IR 15MG PO ORDERED.WILL MONITOR FOR RELIEF.
--- NOTE | 2020-06-15 05:00 | NUR ---
MS RN NOTES PAIN SCALE THIS TIME 5/10,TRYING TO SLEEP MORE.
[2020-06-15] MEDS: METRONIDAZOLE 500 MG TABLET PO SCH ×3 (05:03→21:14)
--- NOTE | 2020-06-15 07:13 | NUR ---
MS RN NOTES ASLEEP,NOT IN ANY FORM OF DISTRESS,NO SUICIDAL IDEATION NOTED,D/C PLAN,AWAITING BED AT [facility].IN NO ACUTE DISTRESS.
[2020-06-15 08:00] VITALS: BP 118/74
--- NOTE | 2020-06-15 08:00 | NUR ---
PATIENT RECEIVED IN BED ALERT AND ORIENTED X 4. PATIENT DENIES SUICIDAL IDEATION AT THIS TIME. 1:1 SITTER AT BEDSIDE. NO IV PER MD ORDER. ALL SAFETY MEASURES IN PLACE. PATIENT PENDING POSSIBLE DC TO [facility]. WILL CONTINUE TO MONITOR.
[2020-06-15] MEDS: ZINC SULFATE 220 MG CAPSULE PO SCH (08:36)
[2020-06-15] MEDS: ASPIRIN 81 MG TAB.CHEW PO SCH (08:37)
[2020-06-15] MEDS: buPROPion SR 150 MG TABLET.ER PO SCH (08:37)
[2020-06-15] MEDS: PANTOPRAZOLE 40 MG TABLET.DR PO SCH (08:37)
[2020-06-15] MEDS: DOCUSATE SODIUM 250 MG CAPSULE PO SCH ×2 (08:37→17:25)
[2020-06-15] MEDS: MULTIVIT W/MINERALS 1 TAB TABLET PO SCH (08:37)
[2020-06-15] MEDS: ASCORBIC ACID 500 MG TABLET PO SCH (08:37)
[2020-06-15] MEDS: HEPARIN SODIUM, PORCINE 5000 UNITS/1 ML VIAL SQ SCH ×2 (08:40→21:14)
[2020-06-15] MEDS: LamoTRIgine 100 MG TABLET PO SCH (08:51)
[2020-06-15] MEDS: LITHIUM CARBONATE 150 MG CAPSULE PO SCH ×2 (08:52→21:00)
[2020-06-15] MEDS: GABAPENTIN 300 MG CAPSULE PO SCH ×2 (08:52→17:00)
[2020-06-15 09:21] LABS: BASOPHILS # (AUTO) 0.1 /CMM (0.0-0.2); BASOPHILS % (AUTO) 0.7 % (0.0-2.0); EOSINOPHILS % (AUTO) 2.6 % (0.0-6.0); HEMATOCRIT 40 % (33-45); HEMOGLOBIN 12.8 g/dL (11.5-14.8); LYMPHOCYTES # (AUTO) 1.4 /CMM (0.8-4.8); LYMPHOCYTES % (AUTO) 16.4 % (20.0-44.0); MEAN CORPUSCULAR HGB CONC 32 g/dl (31.0-36.0); MEAN CORPUSCULAR VOLUME 78 fL (82-100); MONOCYTES # (AUTO) 0.6 /CMM (0.1-1.30); MONOCYTES % (AUTO) 7.4 % (2.0-12.0); NEUTROPHILS # (AUTO) 6.1 /CMM (1.8-8.9); NEUTROPHILS % (AUTO) 72.9 % (43.0-81.0); PLATELET COUNT (AUTO) 359 /CMM (150-450); RED BLOOD CELL COUNT(AUTO) 5.12 MIL/uL (4.0-5.2); WHITE BLOOD COUNT (AUTO) 8.4 K/uL (4.3-11.0)
[2020-06-15] MEDS: NYSTATIN TOP POWDER 15 GM BOTTLE TP SCH ×2 (09:35→16:37)
[2020-06-15 09:47] LABS: CALCIUM, SERUM 10.3 mg/dL (8.5-10.1); CARBON DIOXIDE 23 mmol/L (21-32); CHLORIDE 100 mmol/L (98-107); CREATININE 1.4 mg/dL (0.6-1.3); GLUCOSE 130 mg/dL (74-106); POTASSIUM 3.9 mmol/L (3.5-5.1); SODIUM SERUM 135 mmol/L (136-145); UREA NITROGEN, BLOOD 25 mg/dL (7-18)
[2020-06-15 10:00] VITALS: BP 118/74
[2020-06-15] MEDS: CIPROFLOXACIN HCL 500 MG TABLET PO SCH ×2 (10:03→21:14)
--- NOTE | 2020-06-15 14:40 | NUR ---
MS RN NOTES PATIENT RECEIVED IN BED, WILL CONTINUE WITH PLAN OF CARE.
--- NOTE | 2020-06-15 14:42 | NUR ---
PATIENT REPORT GIVEN TO ONCOMING RN, PATIENT NOT ACCEPTED AT [facility], WILL TRANSFER TO [facility]. ENDORSED TO ONCOMING RN FOR GIULIANA
[2020-06-15 16:00] VITALS: BP 123/80
[2020-06-15] MEDS: LORAZEPAM 0.5 MG TABLET PO PRN (16:35)
--- NOTE | 2020-06-15 18:31 | NUR ---
MS RN NOTES PATIENT IN BED RESTING COMFORTABLY. ALERT AND ORIENTED X 4. ON ROOM AIR WITH NO RESPIRATORY DISTRESS NOTED AT THIS TIME. PATIENT DENIES SUICIDAL IDEATION AT THIS TIME, SITTER AT BEDSIDE. PATIENT DENIES IV ACCESS, MD IS AWARE. SKIN KEPT CLEAN, WARM, AND DRY TO TOUCH. MET ALL OF PATIENT'S NEEDS. SAFETY PRECAUTIONS IMPLEMENTED WITH BED LOCKED, BILATERAL SIDE RAILS UP, BED ALARM ON, AND CALL LIGHT WITHIN EASY REACH OF THE PATIENT. WILL ENDORSE PLAN OF CARE TO UPCOMING RN.
[2020-06-15 20:00] VITALS: BP 118/53
[2020-06-15] MEDS: risperiDONE 1 MG TABLET PO SCH (21:00)
--- NOTE | 2020-06-15 21:23 | NUR ---
PATIENT REFUSING PSYCHIATRIC MEDICINE. REFUSED LITHIUM AND RISPERIDONE. PT WANTS TO TAKE TRAZODONE AND MAGNESIUM PILL CLOSE TO MIDNIGHT. WILL RE OFFER MEDICATION CLOSER TO THAT TIME. PT STATES SHE DOESN'T WANT TO RETURN TO [facility]. STATES STAFF WAS MEAN TO HER. CASE MANAGEMENT CONSULT CORRECTIONAL CORPORAL CONSULT PLACED.
[2020-06-15] MEDS: ZOLPIDEM TARTRATE 5 MG TABLET PO PRN (23:55)
[2020-06-15] MEDS: MAGNESIUM OXIDE 400 MG TABLET PO SCH (23:55)
[2020-06-16] MEDS: METRONIDAZOLE 500 MG TABLET PO SCH ×3 (05:48→20:45)
[2020-06-16 06:07] LABS: BASOPHILS # (AUTO) 0.1 /CMM (0.0-0.2); BASOPHILS % (AUTO) 0.7 % (0.0-2.0); EOSINOPHILS % (AUTO) 3.8 % (0.0-6.0); HEMATOCRIT 41 % (33-45); LYMPHOCYTES # (AUTO) 1.5 /CMM (0.8-4.8); LYMPHOCYTES % (AUTO) 20.1 % (20.0-44.0); MEAN CORPUSCULAR HGB CONC 32 g/dl (31.0-36.0); MEAN CORPUSCULAR VOLUME 81 fL (82-100); MONOCYTES # (AUTO) 0.7 /CMM (0.1-1.30); NEUTROPHILS % (AUTO) 66.4 % (43.0-81.0); PLATELET COUNT (AUTO) 267 /CMM (150-450); RED BLOOD CELL COUNT(AUTO) 5.06 MIL/uL (4.0-5.2); WHITE BLOOD COUNT (AUTO) 7.5 K/uL (4.3-11.0)
[2020-06-16] MEDS: PANTOPRAZOLE 40 MG TABLET.DR PO SCH (06:08)
[2020-06-16 06:17] LABS: CALCIUM, SERUM 9.9 mg/dL (8.5-10.1); CREATININE 1.3 mg/dL (0.6-1.3); MAGNESIUM 2.1 mg/dL (1.8-2.4)
[2020-06-16 07:24] LABS: POTASSIUM 4.7 mmol/L (3.5-5.1)
--- NOTE | 2020-06-16 07:40 | NUR ---
MS/RN OPENING NOTES RECEIVED PATIENT ON BED AWAKE ALERT AND ORIENTED X4. PATIENT IS ON ROOM AIR SATURATING WELL. PATIENT IN NO APPARENT RESPIRATORY DISTRESS NOTED. NO COMPLAINED OF PAIN NOTED AT THIS TIME. WILL CONTINUE TO MONITOR.
[2020-06-16 08:00] VITALS: BP 135/60
[2020-06-16] MEDS: ASPIRIN 81 MG TAB.CHEW PO SCH (08:24)
[2020-06-16] MEDS: MULTIVIT W/MINERALS 1 TAB TABLET PO SCH (08:24)
[2020-06-16] MEDS: LamoTRIgine 100 MG TABLET PO SCH (08:25)
[2020-06-16] MEDS: LITHIUM CARBONATE 150 MG CAPSULE PO SCH ×2 (08:25→20:48)
[2020-06-16] MEDS: ZINC SULFATE 220 MG CAPSULE PO SCH (08:25)
[2020-06-16] MEDS: MORPHINE SULFATE IR 15 MG TABLET PO PRN ×2 (08:25→16:47)
[2020-06-16] MEDS: DOCUSATE SODIUM 250 MG CAPSULE PO SCH ×2 (08:25→16:47)
[2020-06-16] MEDS: CIPROFLOXACIN HCL 500 MG TABLET PO SCH ×2 (08:25→20:49)
[2020-06-16] MEDS: ASCORBIC ACID 500 MG TABLET PO SCH (08:26)
[2020-06-16] MEDS: HEPARIN SODIUM, PORCINE 5000 UNITS/1 ML VIAL SQ SCH ×2 (08:34→20:56)
[2020-06-16] MEDS: ONDANSETRON 4 MG TAB.RAPDIS PO PRN ×2 (08:36→17:15)
[2020-06-16] MEDS: buPROPion SR 150 MG TABLET.ER PO SCH (08:41)
[2020-06-16] MEDS: GABAPENTIN 300 MG CAPSULE PO SCH ×2 (08:44→16:47)
[2020-06-16 10:00] VITALS: BP 135/60
[2020-06-16] MEDS: NYSTATIN TOP POWDER 15 GM BOTTLE TP SCH ×2 (10:53→16:47)
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
[2020-06-16] MEDS: LORAZEPAM 0.5 MG TABLET PO PRN (17:15)
--- NOTE | 2020-06-16 18:27 | NUR ---
MS/RN CLOSING NOTES PATIENT IS ON BED. ALERT AND ORIENTED X 4. PATIENT IS ON ROOM AIR SATURATION 94%. PATIENT IN NO APPARENT RESPIRATORY DISTRESS NOTED. NO COMPLAINED OF PAIN NOTED AT THIS TIME. SEEN AND EXAMINED BY MD WITH ORDERS MADE AND CARRIED OUT. ALL DUE MEDICATIONS WAS GIVEN. SAFETY PRECAUTIONS WAS IN PLACED. BED IN LOWEST POSITION AND LOCKED. PATIENT IS FOR DISCHARGE TODAY. WILL ENDORSED TO INDEPENDENT SALES REPRESENTATIVE FOR GIULIANA.
[2020-06-16 20:00] VITALS: BP 122/48
--- NOTE | 2020-06-16 20:06 | NUR ---
ms security technician initial notes received report from am nurse and checked the pt she's awake and alert still complaining of pain even morphine tablet given 2 hrs ago by am shift. pt also refused to be discharge tonight because of the pain and request to be discharge inna instead. Notify Dr Ariane Musa waiting for the response .
[2020-06-16] MEDS: TRAMADOL HCL 50 MG TABLET PO PRN (20:46)
--- NOTE | 2020-06-16 20:46 | NUR ---
ms neck cutter notes tramadol given po for her lower back pain as well as her routine medication. snacks also served. Pt refused her Risperdal and lithuim carbonated saying that she doesn't needs psyche medication only she needs her pain medication and saying "I'm not a psyche pt . " Charge nurse aware .
[2020-06-16] MEDS: risperiDONE 1 MG TABLET PO SCH (20:48)
[2020-06-16] MEDS: TRAZODONE 50 MG TABLET PO SCH (22:47)
[2020-06-16] MEDS: MAGNESIUM OXIDE 400 MG TABLET PO SCH (22:47)
[2020-06-16 22:48] VITALS: BP 131/78
[2020-06-17] MEDS: ZOLPIDEM TARTRATE 5 MG TABLET PO PRN (00:03)
--- NOTE | 2020-06-17 00:10 | NUR ---
ms stain sprayer closing notes sleep medication given per pt requested . still waiting for the response of Dr Musa regarding the refusal of patient to be discharge last night . Patient henry, seems depressed but refused to take her psyche medication, on and off pain noted even pain medication given. sponge bath rendered as well as skin care treatment , reposition her for comfort. endorse to another nurse for continuity of care.
[2020-06-17] MEDS: TRAMADOL HCL 50 MG TABLET PO PRN ×2 (02:22→08:34)
[2020-06-17] MEDS: ONDANSETRON 4 MG TAB.RAPDIS PO PRN (03:04)
[2020-06-17] MEDS: LORAZEPAM 0.5 MG TABLET PO PRN (03:05)
[2020-06-17] MEDS: METRONIDAZOLE 500 MG TABLET PO SCH (04:12)
--- NOTE | 2020-06-17 04:28 | NUR ---
ENDING NOTES: ALERT AND ORIENTATED X3 MORALES HAS MANY DEMANDS ENDING NOTES:: ALERT AND ORIENTATED X4 SPEECH CLEAR C\\O GENERALIZED BODY PAIN SHE STATES IS ENDING NOTES: ALERT AND ORIENTATED X4 SPEECH CLEAR MEDICATED X1 WITH ULTRAM 50 MG SINCE 2214 LAST NIGHT AND EFFECTIVE FOR GENERALIZED BODY ACHE, PT STATES IT IS "COMPLETE BODY NEUROPATHY" PAINFUL, WHERE YOU WANT TO " ATIVAN GIVEN 1 TIME D/T HER CRYING AND SCREAMIN I WANT TO I WANT TO KILL MTSELF" SITTER AT THE BEDSIDE. INCONTINENT FREQ. UNDER PADS CHANGED AND MONICA APPLIED MEPILEX ON THE SACRAL STG 4 WOUND DRINK WATER W/O PROBLEMS ASP PRECAUTIONS MAINTAIRNED
--- NOTE | 2020-06-17 07:30 | NUR ---
MS QUEEN OPENING NOTES RECEIVED PATIENT HAVING BREAKFAST IN BED. A/O X4. ON ROOM AIR, TOLERATING WELL. NO SOB NOTED. NO S/S OF RESPIRATORY DISTRESS. VERBALIZING PAIN. NO SUICIDAL IDEATION AT THIS TIME. SITTER AT THE BEDSIDE. NO IV ACCESS. SAFETY MEASURES MAINTAINED. BED IN LOWEST POSITION, BRAKES LOCKED. SIDE RAILS UP X2. CALL LIGHT WITHIN REACH. WILL CONTINUE PLAN OF CARE. Addendum: 06/17/20 at 0815 by JACINTA MANNING RN ENTERED BY OANH TRINH, RN
[2020-06-17 08:23] VITALS: BP 144/66
[2020-06-17] MEDS: ASPIRIN 81 MG TAB.CHEW PO SCH (08:30)
[2020-06-17] MEDS: ZINC SULFATE 220 MG CAPSULE PO SCH (08:30)
[2020-06-17] MEDS: CIPROFLOXACIN HCL 500 MG TABLET PO SCH (08:30)
[2020-06-17] MEDS: ASCORBIC ACID 500 MG TABLET PO SCH (08:30)
[2020-06-17] MEDS: GABAPENTIN 300 MG CAPSULE PO SCH (08:30)
[2020-06-17] MEDS: PANTOPRAZOLE 40 MG TABLET.DR PO SCH (08:30)
[2020-06-17] MEDS: LITHIUM CARBONATE 150 MG CAPSULE PO SCH (08:30)
[2020-06-17] MEDS: LamoTRIgine 100 MG TABLET PO SCH (08:30)
[2020-06-17] MEDS: DOCUSATE SODIUM 250 MG CAPSULE PO SCH (08:30)
[2020-06-17] MEDS: HEPARIN SODIUM, PORCINE 5000 UNITS/1 ML VIAL SQ SCH (08:32)
[2020-06-17] MEDS: MULTIVIT W/MINERALS 1 TAB TABLET PO SCH (08:32)
[2020-06-17] MEDS: buPROPion SR 150 MG TABLET.ER PO SCH (08:32)
[2020-06-17] MEDS: NYSTATIN TOP POWDER 15 GM BOTTLE TP SCH (08:43)
--- NOTE | 2020-06-17 11:45 | NUR ---
MS RN NOTES PATIENT IS DISCHARGED. ACCOMPANIED BY 2 EMT'S, BROUGHT DOWN VIA [facility]. CALLED [facility] AND GAVE REPORT TO [facility]. HEALTH TEACHING AND DISCHARGE INSTRUCTIONS WERE GIVEN. VERBALIZED UNDERSTANDING. NO IV ACCESS, REMOVED PT'S ID BADGE. BP 103/65 ND 104 RR 15 TEMP 98.7 SAO2 95%
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
[2020-06-18] MEDS ORDERED: LITH300C4 PO (14:06)
[2020-06-18] MEDS ORDERED: MAG-55 PO (14:06)
[2020-06-18] MEDS ORDERED: LAMO100T2 PO (14:06)
[2020-06-18] MEDS ORDERED: LORA-259 PO (14:06)
[2020-06-18] MEDS ORDERED: HEPA100D33 SQ (14:06)
[2020-06-18] MEDS ORDERED: MORP30TA59 PO (14:06)
[2020-06-18] MEDS ORDERED: POLY17PO4 PO (15:56)
[2020-06-18] MEDS ORDERED: ZOLP5TAB8 PO (15:56)
[2020-06-18] MEDS ORDERED: RISP1TAB97 PO (15:56)
[2020-06-18] MEDS ORDERED: TRAZ-182 PO (15:56)
== END 2020-06-17 12:00 | DRG 391 ==
LOC: ER 13:49 → MEDSG1 20:18 → MED 06-14 18:17
PROVIDERS: ADMIT Nurse Practitioner Family; ATTEND Nurse Practitioner Family
DX: K57.32 Diverticulitis of large intestine without perforation or abscess without bleeding (principal); L89.154 Pressure ulcer of sacral region, stage 4; E87.1 Hypo-osmolality and hyponatremia; E44.1 Mild protein-calorie malnutrition; R45.851 Suicidal ideations; N17.9 Acute kidney failure, unspecified; E66.9 Obesity, unspecified; G62.9 Polyneuropathy, unspecified; G89.29 Other chronic pain; I10 Essential (primary) hypertension; Z88.0 Allergy status to penicillin; F39 Unspecified mood [affective] disorder; Z79.82 Long term (current) use of aspirin; Z91.5 Personal history of self-harm; E88.09 Other disorders of plasma-protein metabolism, not elsewhere classified; M19.09 Primary osteoarthritis, other specified site; Z20.822 Contact with and (suspected) exposure to COVID-19; G47.00 Insomnia, unspecified; Z90.49 Acquired absence of other specified parts of digestive tract; Z79.899 Other long term (current) drug therapy; E86.1 Hypovolemia; Z68.39 Body mass index [BMI] 39.0-39.9, adult; L30.4 Erythema intertrigo; F25.9 Schizoaffective disorder, unspecified; K59.00 Constipation, unspecified; M19.90 Unspecified osteoarthritis, unspecified site
CPT/HCPCS: 36415; 71045-TC; 76705-TC; 80048-TC; 80061-TC; 80076-TC; 83690-TC; 83735-TC; 84100-TC; 85025-TC; 92526; 92611-TC; G0378; J1644; J2060; J2185; J2270; J2405; J7030; Q0162; U0003

== ENCOUNTER 2020-06-18 13:11 | Inpatient (IN) | payer MEDICARE, OTHER ==
[~2020-06-18] VITALS: Ht 165.1 cm; Wt 105.8 kg
[~2020-06-18 13:11] MED LIST changes: -ASCO500C17 PO; +ASCO500T10 PO; -LAMO200T2 PO; -LEVO500T90 PO; +ONDA4TAB5 PO; -RISP0.5T5 PO; -ZINC220T4 PO; +ZINC50TA69 PO; +ZINC56.713 TP
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
[2020-06-18 13:59] LABS: BASOPHILS # (AUTO) 0.1 /CMM (0.0-0.2); BASOPHILS % (AUTO) 0.6 % (0.0-2.0); EOSINOPHILS % (AUTO) 3.8 % (0.0-6.0); HEMATOCRIT 41 % (33-45); HEMOGLOBIN 13.1 g/dL (11.5-14.8); LYMPHOCYTES # (AUTO) 1.9 /CMM (0.8-4.8); LYMPHOCYTES % (AUTO) 16.7 % (20.0-44.0); MEAN CORPUSCULAR HGB CONC 32 g/dl (31.0-36.0); MEAN CORPUSCULAR VOLUME 80 fL (82-100); MONOCYTES # (AUTO) 1.2 /CMM (0.1-1.30); MONOCYTES % (AUTO) 10.2 % (2.0-12.0); NEUTROPHILS # (AUTO) 7.9 /CMM (1.8-8.9); NEUTROPHILS % (AUTO) 68.7 % (43.0-81.0); PLATELET COUNT (AUTO) 289 /CMM (150-450); RED BLOOD CELL COUNT(AUTO) 5.08 MIL/uL (4.0-5.2); WHITE BLOOD COUNT (AUTO) 11.5 K/uL (4.3-11.0)
[2020-06-18] MEDS ORDERED: MORP30TA59 PO (14:06)
[2020-06-18] MEDS ORDERED: LORA-259 PO (14:06)
[2020-06-18] MEDS ORDERED: LITH300C4 PO (14:06)
[2020-06-18] MEDS ORDERED: MAG-55 PO (14:06)
[2020-06-18] MEDS ORDERED: LAMO100T2 PO (14:06)
[2020-06-18] MEDS ORDERED: HEPA100D33 SQ (14:06)
[2020-06-18 14:15] LABS: ALANINE AMINOTRANSFERASE 31 U/L (12-78); ALBUMIN 3.3 g/dL (3.4-5.0); ALKALINE PHOSPHATASE 79 U/L (46-116); ASPARTATE AMINOTRANSFERASE 36 U/L (15-37); BILIRUBIN,DIRECT 0.1 mg/dL (0.0-0.2); BILIRUBIN,TOTAL 0.4 mg/dL (0.2-1.0); CALCIUM, SERUM 9.6 mg/dL (8.5-10.1); CARBON DIOXIDE 27 mmol/L (21-32); CHLORIDE 94 mmol/L (98-107); CREATININE 1.4 mg/dL (0.6-1.3); GLUCOSE 98 mg/dL (74-106); LIPASE 121 U/L (73-393); POTASSIUM 4.5 mmol/L (3.5-5.1); SODIUM SERUM 129 mmol/L (136-145); TOTAL PROTEIN, SERUM 7.5 g/dL (6.4-8.2); UREA NITROGEN, BLOOD 25 mg/dL (7-18)
[2020-06-18] MEDS ORDERED: METRONIDAZOLE 500MG/ NS 100ML 100 ML IV ONE (15:30)
[2020-06-18] MEDS ORDERED: ONDANSETRON HCL/PF 4 MG/2 ML VIAL IVP ONE (15:30)
[2020-06-18] MEDS ORDERED: MORPHINE SULFATE INJ 2 MG/ML DISP.SYRIN IV ONE (15:30)
[2020-06-18] MEDS ORDERED: IV NS 0.9% 1,000 ML BAG IV ONE (15:30)
[2020-06-18] MEDS ORDERED: LEVOFLOXACIN 750 MG /D5W 150ML 150 ML IV ONE (15:30)
[2020-06-18] MEDS ORDERED: RISP1TAB97 PO (15:56)
[2020-06-18] MEDS ORDERED: TRAZ-182 PO (15:56)
[2020-06-18] MEDS ORDERED: POLY17PO4 PO (15:56)
[2020-06-18] MEDS ORDERED: ZOLP5TAB8 PO (15:56)
--- NOTE | 2020-06-18 16:13 | NUR ---
pt has no IV access, attempt on insertion was unsuccessful, pt refused additional attempt. Discussed with FOUZIA Levine for midline placement. Medication pending administration due to lack of IV access. Pt remain in stable condition.
[2020-06-18] MEDS ORDERED: Z GUARD REMEDY 2 OZ OINT TP PRN (16:30)
[2020-06-18] MEDS ORDERED: ACETAMINOPHEN 650 MG/SUPP.RECT RC PRN (16:30)
[2020-06-18] MEDS ORDERED: PANTOPRAZOLE 40 MG VIAL IV SCH (16:30)
[2020-06-18] MEDS ORDERED: DIATR MEGLU/DIATRIZOATE SODIUM 30 ML BOTTLE (GASTROGRAPHIN) ONE (16:35)
--- NOTE | 2020-06-18 16:57 | NUR ---
report given to BERNICE tyson, patient will be admitted on Tele status, VSS, all belongings will be transfer with patient.
[2020-06-18] MEDS: ENOXAPARIN SODIUM 40 MG/0.4 ML DISP.SYRIN SQ SCH ×2 (17:00→18:00)
--- NOTE | 2020-06-18 17:27 | NUR ---
RAIL GANG SUPERVISOR NOTES RECEIVED PATIENT FROM ER, COMPLAINT OF ABDOMINAL PAIN, DX ACUTE DIVERTICULITIS PERFORATED PER MARISSA AVERY, PATIENT SCREAMING WHEN SHE ARRIVED, DEMANDING FOR IV ACCESS, LOW AIRLOSS MATTRESS, AOX3, ON ROOM AIR, NOT IN ANY DISTRESS, SINUS RHYTHM ON MONITOR, HR 86, NO IV ACCESS, PER ER HARD STICK, FOR MIDLINE INSERTION, KYLEIGH RN MASSAGE THERAPIST AWARE, REFUSE PHOTO/PICTURES OF SKIN ISSUES, NPO FOR NOW, UNIT ORIENTATION AND USE OF CALL LIGHT DONE, BED LOW LOCKED, SAFETY MEASURES IN PLACE, WILL CONT TO MONITOR.
--- NOTE | 2020-06-18 17:45 | NUR ---
RN NOTES PER MOTION AND TIME STUDY TEACHER, PATIENT STATED "I AM SUICIDAL, I NEED A SITTER", SOON CHARGE NURSE AWARE AND RELAYED TO KYLEIGH RN RAWHIDE TRIMMER.
[2020-06-18 18:02] VITALS: BP 106/67
--- NOTE | 2020-06-18 18:29 | NUR ---
RN NOTES ALL NEEDS ANTICIPATED AT THIS TIME. AROLDO MIDLINE NURSE ON THE WAY, MIDLINE PACK PREPARED AND AT BEDSIDE. PHARMACY INFORMED THAT ALL IV MEDS NOT ADMINISTERED AT ER DUE TO NO LINE AVAILABLE. PER PHARMACY, LET SN ADMINISTER MERREM FIRST DOSE ONCE LINE IS AVAILABLE. NO OTHER SIGNIFICANT CHANGE IN CONDITION WILL ENDORSE TO NEXT SHIFT FOR GIULIANA.
--- NOTE | 2020-06-18 19:15 | NUR ---
RN OPENING NOTES: RECEIVED PT A/OX 3-4 IN BED RESTING COMFORTABLY. PATIENT IN NO S/SX OF ACUTE DISTRESS AT THIS TIME. NO SOB NOTED. PATIENT'S BREATHING IS EVEN AND UNLABORED. PATIENT IS ON ROOM AIR; TOLERATING WELL; 02 SAT AT 95% AT THE TIME OF RECEIVED. PATIENT ON TELE MONITORING READING SINUS RHYTHM HR IS @80s AT THE TIME OF RECEIVED. PATIENT CURRENTLY ON NPO. NO IV SITE/ACCESS AT THE TIME OF RECEIVED. WILL ADDRESS THIS MATTER ACCORDINGLY. SAFETY MEASURES HAVE BEEN PROVIDED AND IMPLEMENTED. PATIENT BED ALARM IS ON. HEAD OF BED ELEVATED. BED IS LOCKED, IN LOWEST POSITION AND SIDE RAILS UP. CALL LIGHT WITHIN REACH OF THE PATIENT. APPLICABLE ISOLATION PRECAUTIONS IN PLACE. WILL CONTINUE TO MONITOR AND REASSESS FOR ANY CHANGES AND WILL CARRY OUT ANY ONGOING AND ACTIVE MD ORDER.
--- NOTE | 2020-06-18 19:20 | NUR ---
RN NOTES PER AM SHIFT RN ( RAZIA) AND PER PHARMACY (CECILIA) MERREM 1G SHOULD BE GIVEN ONCE IV LINE/ACCESS HAS BEEN ESTABLISHED AND SECURED. MEDICATION THAT WERE DUE @530-1700 WILL NOT BE COVERED BY PM SHIFT RN. OR ASSISTANT MADE AWARE. WILL CONTINUE MONITOR AND ASSESS THROUGHOUT THE SHIFT. WILL CARRY OUT MD ORDERS ACCORDINGLY.
[2020-06-18 20:00] VITALS: BP 123/77
[2020-06-18] MEDS ORDERED: LORAZEPAM INJ 2 MG/ML VIAL IV ONE (21:00)
[2020-06-18] MEDS: IV NS 0.9% 1,000 ML IV PRN (21:00)
--- NOTE | 2020-06-18 21:00 | NUR ---
RN NOTES PICC LINE NURSE (AROLDO) ARRIVED AND PUT MIDLINE ACCESS AT R UA #18, ALL SUPPLIES NEEDED PREPARED AND ATTENDED NEEDS. TIP SCOURER MADE AWARE. WILL CONTINUE TO MONITOR AND ASSESS THROUGHOUT THE SHIFT.
[2020-06-18] MEDS: MEROPENEM 1 G in IV NS 0.9% 100 ML IV SCH (21:16)
--- NOTE | 2020-06-18 23:00 | NUR ---
RN NOTES PATIENT REMAINS IN NO ACUTE RESPIRATORY DISTRESS AT THIS TIME, NO CHANGES TO CONDITION/STATUS. SALES ENABLEMENT SPECIALIST WELL AWARE. WILL CONTINUE TO MONITOR AND REASSESS FOR ANY CHANGES THROUGHOUT THE SHIFT
[2020-06-19] VITALS: BP 148/70
[2020-06-19] MEDS: HYDROMORPHONE INJ 2 MG/ML DISP.SYRIN IV PRN ×3 (03:52→18:08)
[2020-06-19 04:00] VITALS: BP 128/74
--- NOTE | 2020-06-19 06:00 | NUR ---
RN NOTES ELECTRIC TRUCK OPERATOR ELLA REPORTED THAT PT REFUSED BLOOD DRAW FOR AM LAB FOR NOW, RN ACKNOWLEDGED. SHE SAID THEY WILL BE BACK AGAIN AROUND 7-8 FOR BLOOD DRAW. MARKETING SUMMER INTERN MADE AWARE. WILL ALSO INFORM INCOMING SHIFT RN REGARDING THIS CONCERN.
--- NOTE | 2020-06-19 06:43 | NUR ---
RN NOTES FACILITATED COVID SWAB TEST FOR PATIENT PER PROTOCOL; PT TOLERATED WELL PROCEDURE. ART GLASS DESIGNER MADE AWARE. SPECIMEN PROPERLY LABELED AND TRANSPORTED TO LAB. ,
--- NOTE | 2020-06-19 06:51 | NUR ---
RN CLOSING NOTE: PATIENT REMAINS IN ROOM RESTING COMFORTABLY.NO SIGNS OF RESPIRATORY DISTRESS PATIENT STILL ON ROOM AIR TOLERATING WELL SATURATING @ >93% SP02. PATIENT IS CLEAN , DRY AND COMFORTABLE THROUGHOUT THE SHIFT. ALL DUE MEDS GIVEN ORDERED ; PATIENT TOLERATED WELL. SAFETY MEASURES IMPLEMENTED, BED IN LOWEST POSITION, LOCKED, SIDE RAILS UP, CALL LIGHT WITHIN REACH. PATIENT ENDORSED TO INCOMING SHIFT RN WITH STABLE VITAL SIGN AND FOR CONTINUITY OF CARE.
--- NOTE | 2020-06-19 07:30 | NUR ---
RN OPENING NOTES: RECEIVED PT A/OX 3-4 IN BED RESTING COMFORTABLY. PATIENT IN NO S/SX OF ACUTE DISTRESS AT THIS TIME. NO SOB NOTED. PATIENT'S BREATHING IS EVEN AND UNLABORED. PATIENT IS ON ROOM AIR; TOLERATING WELL; 02 SAT AT 95% AT THE TIME OF RECEIVED. PATIENT ON TELE MONITORING READING SINUS RHYTHM HR IS @80s AT THE TIME OF RECEIVED. PATIENT CURRENTLY ON NPO. PATIENT HAS A RIGHT UPPER ARM MIDLINE 18G RUNNING NORMAL SALINE AT 100ML/HR. SAFETY MEASURES HAVE BEEN PROVIDED AND IMPLEMENTED. PATIENT BED ALARM IS ON. HEAD OF BED ELEVATED. BED IS LOCKED, IN LOWEST POSITION AND SIDE RAILS UP. CALL LIGHT WITHIN REACH OF THE PATIENT. APPLICABLE ISOLATION PRECAUTIONS IN PLACE. WILL CONTINUE TO MONITOR AND REASSESS FOR ANY CHANGES AND WILL CARRY OUT ANY ONGOING AND ACTIVE MD ORDER.
[2020-06-19 08:00] VITALS: BP 137/62
[2020-06-19] MEDS: MEROPENEM 1 G in IV NS 0.9% 100 ML IV SCH ×2 (08:58→20:36)
[2020-06-19] MEDS: PANTOPRAZOLE 40 MG VIAL IV SCH (08:58)
[2020-06-19 09:01] LABS: CALCIUM, SERUM 9.8 mg/dL (8.5-10.1); CREATININE 1.2 mg/dL (0.6-1.3); MAGNESIUM 2.1 mg/dL (1.8-2.4); PHOSPHORUS 3.8 mg/dL (2.5-4.9)
[2020-06-19] MEDS: DIAZEPAM 5 MG/ML 2 ML DISP.SYRIN IV PRN ×3 (09:47→21:33)
--- NOTE | 2020-06-19 10:12 | NUR ---
WOUND CARE CONSULT: REVIEWED CHART, NURSING DOCUMENTATION AND PHOTOS WHICH INDICATE RASHES/REDNESS TO BREASTFOLDS AND ABDOMINAL FOLDS WELL SACRAL WOUND, PRESENT ON ADMISSION. RECOMMEND SURGICAL CONSULT. DR PERERA NOTIFIED OF CONSULT REQUEST. FIRST STEP LOW AIRLOSS MATTRESS IS ON ORDER. MD IN AGREEMENT WITH PLAN OF CARE.
[2020-06-19] MEDS ORDERED: THERAHONEY GEL 1.5 OZ TUBE TP PRN (11:00)
[2020-06-19 12:00] VITALS: BP 106/50
[2020-06-19] MEDS: IV NS 0.9% 1,000 ML IV PRN (12:19)
[2020-06-19 16:00] VITALS: BP 119/80
[2020-06-19] MEDS: NYSTATIN TOP POWDER 15 GM BOTTLE TP SCH (17:45)
[2020-06-19] MEDS: ENOXAPARIN SODIUM 40 MG/0.4 ML DISP.SYRIN SQ SCH (17:49)
--- NOTE | 2020-06-19 18:45 | NUR ---
RN CLOSING NOTES: RECEIVED PT A/OX 3-4 IN BED RESTING COMFORTABLY. PATIENT IN NO S/SX OF ACUTE DISTRESS AT THIS TIME. NO SOB NOTED. PATIENT'S BREATHING IS EVEN AND UNLABORED. PATIENT IS ON 3 LPM; TOLERATING WELL; 02 SAT AT 95% AT THE TIME OF RECEIVED. PATIENT ON TELE MONITORING READING SINUS RHYTHM HR IS @80s AT THE TIME OF RECEIVED. PATIENT CURRENTLY ON NPO. PATIENT HAS A RIGHT UPPER ARM MIDLINE 18G RUNNING NORMAL SALINE AT 100ML/HR. CURRENTLY AWAITING PICC LINE INSERTION. SAFETY MEASURES HAVE BEEN PROVIDED AND IMPLEMENTED. PATIENT BED ALARM IS ON. HEAD OF BED ELEVATED. BED IS LOCKED, IN LOWEST POSITION AND SIDE RAILS UP. CALL LIGHT WITHIN REACH OF THE PATIENT. APPLICABLE ISOLATION PRECAUTIONS IN PLACE. WILL ENDORSE TO FLAT DRIER NURSE.
--- NOTE | 2020-06-19 19:51 | NUR ---
SUPERVISOR LABORATORY ANIMAL FACILITY OPENING NOTES PATIENT A/O X3; MOUTHS WORKS. ON TRACH AND TOLERATING MECH VENT SETTINGS WELL WITH NO SOB. EXTERNAL SENIOR MI[employer] NET DEVELOPER READS NSR AND HR AT 77. EMY MIDLINE; PATENT AND INTACT. DENIES PAIN OR DISCOMFORT AT THIS TIME. GTUBE PEG PATENT AND INTACT; GLUCERNA 1.2 @ 45/ML; TOLERATING FEEDINGS WELL. SAFETY MEASURES IN PLACE: SIDE RAILS UPX2, CALL LIGHT WITHIN REACH, BED IN LOWEST LOCKED POSITION, BED ALARMS ON. PATIENT MEDICALLY STABLE. Addendum: 06/19/20 at 1955 by FREDY SHAFFER RN WRONG PATIENT. PLEASE DISREGARD
--- NOTE | 2020-06-19 19:55 | NUR ---
DISREGARD NOTE BELOW. ERROR.
--- NOTE | 2020-06-19 19:56 | NUR ---
AIRCRAFT SERVICER OPENING NOTES PATIENT A/O X4; ABLE TO MAKE NEEDS KNOWN. ON O2 3LPM VIA N/C; TOLERATING SETTINGS WELL WITH NO SOB. EXTERNAL PRISM MEASURER READS NSR AND HR AT 77. EMY MIDLINE; PATENT AND INTACT; INFUSING NS @ 100ML/HR. GUNTER CATHETER PATENT AND INTACT; DRAINING YELLOW URINE. DENIES PAIN OR DISCOMFORT AT THIS TIME. NPO DIET MAINTAINED. SAFETY MEASURES IN PLACE: SIDE RAILS UPX2, CALL LIGHT WITHIN REACH, BED IN LOWEST LOCKED POSITION, BED ALARMS ON. PATIENT MEDICALLY STABLE.
[2020-06-19 20:00] VITALS: BP 136/68
--- NOTE | 2020-06-19 22:37 | NUR ---
pt was complaining not being able to sleep, informed dr Hernandez received 1mg ativan iv once.
[2020-06-19] MEDS ORDERED: LORAZEPAM INJ 2 MG/ML VIAL IV ONE (23:00)
[2020-06-20] VITALS: BP 129/78
[2020-06-20] MEDS: DIAZEPAM 5 MG/ML 2 ML DISP.SYRIN IV PRN (03:46)
[2020-06-20 04:00] VITALS: BP 127/92
[2020-06-20] MEDS: IV NS 0.9% 1,000 ML IV PRN (04:14)
[2020-06-20] MEDS: ONDANSETRON HCL/PF 4 MG/2 ML VIAL IVP PRN (05:24)
[2020-06-20 06:22] LABS: BASOPHILS % (AUTO) 0.6 % (0.0-2.0); EOSINOPHILS % (AUTO) 4.9 % (0.0-6.0); HEMATOCRIT 35 % (33-45); HEMOGLOBIN 11.3 g/dL (11.5-14.8); LYMPHOCYTES # (AUTO) 1.1 /CMM (0.8-4.8); LYMPHOCYTES % (AUTO) 12.7 % (20.0-44.0); MEAN CORPUSCULAR HGB CONC 33 g/dl (31.0-36.0); MEAN CORPUSCULAR VOLUME 79 fL (82-100); MONOCYTES # (AUTO) 0.8 /CMM (0.1-1.30); MONOCYTES % (AUTO) 9.4 % (2.0-12.0); NEUTROPHILS # (AUTO) 6.1 /CMM (1.8-8.9); NEUTROPHILS % (AUTO) 72.4 % (43.0-81.0); PLATELET COUNT (AUTO) 251 /CMM (150-450); WHITE BLOOD COUNT (AUTO) 8.4 K/uL (4.3-11.0)
--- NOTE | 2020-06-20 07:00 | NUR ---
RN OPENING NOTES RECEIVED PT IN BED RESTING COMFORTABLY. A/OX 3-4. ON 3L O2 VIA NC SATURATION @97%. NO SOB ANY S/SX OF ACUTE RESPIRATORY DISTRESS AT THIS TIME. ON TELE MONITORING READING SR. NPO STATUS. IV ACCESS AT [facility] PICINE RUNNING NS @100ML/HR. SAFETY MEASURES IMPLEMENTED. CALL LIGHT WITHIN REACH. BED ALARM IS ON. HOB ELEVATED. BED LOCKED AND IN LOWEST POSITION WITH SIDE RAILS UP X3. APPLICABLE WILL CONTINUE TO MONITOR.
--- NOTE | 2020-06-20 07:38 | NUR ---
RN NOTE NO ACUTE CHANGES DURING MY SHIFT, REPORT GIVEN TO ONCOMING SHIFT FOR GIULIANA.
[2020-06-20 08:00] VITALS: BP 146/96
[2020-06-20] MEDS: MEROPENEM 1 G in IV NS 0.9% 100 ML IV SCH ×2 (08:43→22:46)
[2020-06-20] MEDS: PANTOPRAZOLE 40 MG VIAL IV SCH (08:44)
[2020-06-20] MEDS: LORAZEPAM INJ 2 MG/ML VIAL IV PRN ×2 (08:44→19:55)
[2020-06-20] MEDS: NYSTATIN TOP POWDER 15 GM BOTTLE TP SCH ×2 (08:44→16:23)
[2020-06-20] MEDS: IV D5/0.45 NACL 1,000 ML IV PRN (10:04)
[2020-06-20 10:14] LABS: CALCIUM, SERUM 8.4 mg/dL (8.5-10.1); POTASSIUM 3.7 mmol/L (3.5-5.1)
[2020-06-20 12:00] VITALS: BP 158/71
[2020-06-20] MEDS: HYDROMORPHONE INJ 2 MG/ML DISP.SYRIN IV PRN (14:52)
[2020-06-20 15:28] LABS: BILIRUBIN,URINE NEGATIVE (NEGATIVE); COLOR,URINE YELLOW (YELLOW); LEUKOCYTE ESTERASE ,URINE SMALL (NEGATIVE); NITRITE, URINE NEGATIVE (NEGATIVE); PROTEIN,URINE NEGATIVE (NEGATIVE); UGLUCOSE NEGATIVE (NEGATIVE); UROBILINOGEN,URINE 0.2 EU/dL (0.2)
[2020-06-20 15:37] LABS: BACTERIA,URINE 2+ /HPF (None Seen); SQUAMOUS EPITHELIAL CELL,UR 0-2 /HPF (None Seen)
[2020-06-20 16:00] VITALS: BP 141/68
[2020-06-20] MEDS: MUPIROCIN 2% CREAM 15 GM TUBE TP SCH (16:23)
[2020-06-20] MEDS: ENOXAPARIN SODIUM 40 MG/0.4 ML DISP.SYRIN SQ SCH (17:23)
--- NOTE | 2020-06-20 19:25 | NUR ---
RN CLOSING NOTES NO SIGNIFICANT CHANGES THROUGHOUT THE SHIFT. IN STABLE CONDITION. NO PAIN REPORTED AT THIS TIME. SAFETY MEASURES STILL IN PLACE. WILL ENDORSE TO NIGHT NURSE FOR GIULIANA.
[2020-06-20 20:00] VITALS: BP 152/84
[2020-06-21] VITALS (7 sets, daily range): BP systolic 145–157; BP diastolic 81–99
[2020-06-21] MEDS: IV D5/0.45 NACL 1,000 ML IV PRN ×2 (01:00→17:42)
--- NOTE | 2020-06-21 05:17 | NUR ---
ENDING NOTES: ALERT /ORIENTATED X3 WHISPERS/WRITES DOWN HER NEEDS. SLEPT WELL AFTER THE AMBIEN ABOUT 4:30 WAS ANXIOUS AND ATIVAN GIVEN ORDERED. BATH ND LINEN CHANGE DONE WITH TWO NURSE ASSIST. RESTRAINTS ON FOR THE PT SAFETY, NOT TO REMOVE THE TRACH A GOOD NIGHT Addendum: 06/21/20 at 0526 by JACINTA MANNING RN WRONG ENDING NOTES ABOVE: ALERT AND ORIENTATED X4 SLEPT THRU THE NIGHT ON THE MONITOR SHE IS SR REMAINS NPO ORDERED NO N/V THIS 12 HOURS
--- NOTE | 2020-06-21 05:27 | NUR ---
ENDING NOTES: ALERT ND ORIENTATED X3 THRU THE NIGHT SLEPT WELL NEEDS ASSIST TO BE REPOSITIONED NO N/V THIS 12 HOURS SR ON THE STRIP FEEDER AM WT 221 LBS
[2020-06-21] MEDS: LORAZEPAM INJ 2 MG/ML VIAL IV PRN ×2 (06:28→12:28)
--- NOTE | 2020-06-21 07:00 | NUR ---
RN OPENING NOTES RECEIVED PT IN BED RESTING COMFORTABLY. A/OX 3-4. ON ROOM AIR SATURATION @98%. NO SOB ANY S/SX OF ACUTE RESPIRATORY DISTRESS AT THIS TIME. ON TELE MONITORING READING SR. NPO STATUS. IV ACCESS AT [facility] RUNNING D5 1/2 NS @75ML/HR. SAFETY MEASURES IMPLEMENTED. CALL LIGHT WITHIN REACH. BED ALARM IS ON. HOB ELEVATED. BED LOCKED AND IN LOWEST POSITION WITH SIDE RAILS UP X3. WILL CONTINUE TO MONITOR.
[2020-06-21 07:34] LABS: BASOPHILS # (AUTO) 0.1 /CMM (0.0-0.2); BASOPHILS % (AUTO) 0.8 % (0.0-2.0); EOSINOPHILS % (AUTO) 6.6 % (0.0-6.0); HEMATOCRIT 34 % (33-45); HEMOGLOBIN 11.3 g/dL (11.5-14.8); LYMPHOCYTES % (AUTO) 13.6 % (20.0-44.0); MEAN CORPUSCULAR HGB CONC 33 g/dl (31.0-36.0); MEAN CORPUSCULAR VOLUME 78 fL (82-100); MONOCYTES # (AUTO) 0.7 /CMM (0.1-1.30); MONOCYTES % (AUTO) 9.2 % (2.0-12.0); NEUTROPHILS % (AUTO) 69.8 % (43.0-81.0); PLATELET COUNT (AUTO) 225 /CMM (150-450); WHITE BLOOD COUNT (AUTO) 7.1 K/uL (4.3-11.0)
[2020-06-21 07:43] LABS: CALCIUM, SERUM 8.7 mg/dL (8.5-10.1); POTASSIUM 3.5 mmol/L (3.5-5.1)
[2020-06-21] MEDS: MEROPENEM 1 G in IV NS 0.9% 100 ML IV SCH ×2 (09:30→21:59)
[2020-06-21] MEDS: PANTOPRAZOLE 40 MG VIAL IV SCH (09:30)
[2020-06-21] MEDS: NYSTATIN TOP POWDER 15 GM BOTTLE TP SCH ×2 (09:30→17:33)
[2020-06-21] MEDS: MUPIROCIN 2% CREAM 15 GM TUBE TP SCH ×2 (09:30→17:32)
--- NOTE | 2020-06-21 10:30 | NUR ---
RN NOTES TRANSFERRED TO 3W ROOM 313-2. REPORT GIVEN TO YON QUEEN FOR GIULIANA. PT IN STABLE CONDITION.
--- NOTE | 2020-06-21 10:55 | NUR ---
Patient transferred from [facility], receive report Mauricio/BERNICE.
[2020-06-21] MEDS: HYDROMORPHONE INJ 2 MG/ML DISP.SYRIN IV PRN ×2 (11:23→17:31)
[2020-06-21] MEDS: ENOXAPARIN SODIUM 40 MG/0.4 ML DISP.SYRIN SQ SCH (17:37)
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
--- NOTE | 2020-06-21 19:52 | NUR ---
MS RN OPENING NOTES PATIENT A/OX3. ON ROOM AIR, TOLERATING WELL WITH NO SOB. F/C DRAINING YELLOW URINE; PATENT AND INTACT. MAINTAINED ON NPO DIET. PICCLINE TO EMY; D5 1/2NS @ 75ML/HR; PATENT AND INTACT. SAFETY PRECAUTIONS IN PLACE: BED IN LOWEST LOCKED POSITION; SIDERAILS UPX2; CALL LIGHT WITHIN REACH. BED ALARMS ON, 1-1 SITTER PATIENT MEDICALLY STABLE.
[2020-06-21] MEDS ORDERED: LORAZEPAM INJ 2 MG/ML VIAL IV PRN ×2 (21:30)
--- NOTE | 2020-06-21 21:56 | NUR ---
MS RN NOTES PATIENT C/O NOT BEING ABLE TO FALL ASLEEP. NOTIFIED NA JENKINS NP AND ORDERED ATIVAN 2MG. ADMINISTERED 2MG IV AND WILL CONTINUE TO ASSESS FOR RESTLESSNESS AND ANXIETY.
[2020-06-21] MEDS: ONDANSETRON HCL/PF 4 MG/2 ML VIAL IVP PRN (22:39)
[2020-06-22] MEDS: HYDROMORPHONE INJ 2 MG/ML DISP.SYRIN IV PRN ×2 (02:06→06:15)
--- NOTE | 2020-06-22 02:06 | NUR ---
MS RN NOTES - PAIN PATIENT C/O BACK PAIN AND NOT BEING ABLE TO FALL ASLEEP. ADMINISTERED DILAUDID ORDERED. WILL CONTINUE TO ASSESS FOR PAIN.
[2020-06-22] MEDS: ONDANSETRON HCL/PF 4 MG/2 ML VIAL IVP PRN ×2 (04:43→16:36)
--- NOTE | 2020-06-22 04:43 | NUR ---
MS RN NOTES - NAUSEA PATIENT NOTED WITH NAUSEA AND GAGGING. ADMINISTERED ZOFRAN ORDERED. WILL CONTINUE TO MONITOR FOR NAUSEA
--- NOTE | 2020-06-22 06:15 | NUR ---
MS RN NOTES - PAIN PATIENT C/O 12/18 BACK PAIN. ADMINISTERED DILAUDID ORDERED. WILL CONTINUE TO ASSESS FOR PAIN.
--- NOTE | 2020-06-22 06:26 | NUR ---
MS RN CLOSING NOTES PATIENT A/OX3. ON ROOM AIR, TOLERATING WELL WITH NO SOB. F/C DRAINING YELLOW URINE; PATENT AND INTACT. MAINTAINED ON NPO DIET. PICCLINE TO EMY; D5 1/2NS @ 75ML/HR; PATENT AND INTACT. SAFETY PRECAUTIONS IN PLACE: BED IN LOWEST LOCKED POSITION; SIDERAILS UPX2; CALL LIGHT WITHIN REACH, BED ALARMS ON, 1-1 SITTER. PATIENT MEDICALLY STABLE. WILL ENDORSE GIULIANA TO ONCOMING MORNING RN
[2020-06-22 06:44] LABS: BASOPHILS % (AUTO) 0.6 % (0.0-2.0); EOSINOPHILS % (AUTO) 6.9 % (0.0-6.0); HEMATOCRIT 36 % (33-45); HEMOGLOBIN 11.6 g/dL (11.5-14.8); LYMPHOCYTES # (AUTO) 1.5 /CMM (0.8-4.8); LYMPHOCYTES % (AUTO) 20.2 % (20.0-44.0); MEAN CORPUSCULAR HGB CONC 33 g/dl (31.0-36.0); MEAN CORPUSCULAR VOLUME 79 fL (82-100); MONOCYTES # (AUTO) 0.7 /CMM (0.1-1.30); MONOCYTES % (AUTO) 10.1 % (2.0-12.0); NEUTROPHILS # (AUTO) 4.5 /CMM (1.8-8.9); NEUTROPHILS % (AUTO) 62.2 % (43.0-81.0); PLATELET COUNT (AUTO) 232 /CMM (150-450); RED BLOOD CELL COUNT(AUTO) 4.48 MIL/uL (4.0-5.2); WHITE BLOOD COUNT (AUTO) 7.2 K/uL (4.3-11.0)
[2020-06-22 07:02] LABS: CALCIUM, SERUM 8.5 mg/dL (8.5-10.1); POTASSIUM 3.2 mmol/L (3.5-5.1)
--- NOTE | 2020-06-22 07:03 | NUR ---
FOLDED CLOTH TAPER OPENING NOTE RECEIVED PT RESTING COMFORTABLY IN BED. AOX4. PT ABLE TO VERBALIZE NEEDS. NO SOB NOTED, NO S/O ANY ACUTE DISTRESS NOTED, NO C/O PAIN AT THIS TIME. EMY MIDLINE NOTED, INTACT, PATENT AND FLUSHING WELL. PT NOTED WITH GUNTER CATHETER DRAINING TO GRAVITY CLEAR YELLOW URINE OUTPUT. 1:1 SITTER AT BEDSIDE. PT DENIES SI AT THIS TIME. ASPIRATION, FALL AND SAFETY PRECAUTIONS IN PLACE AND MAINTAINED AT ALL TIME. BED IN LOWEST LOCKED POSITION, CALL LIGHT AND TABLE WITHIN REACH, HOB ELEVATED, SIDE RAILS UP. WILL CONTINUE TO MONITOR
[2020-06-22 08:00] VITALS: BP 152/79
[2020-06-22] MEDS: PANTOPRAZOLE 40 MG VIAL IV SCH (09:06)
[2020-06-22] MEDS: MUPIROCIN 2% CREAM 15 GM TUBE TP SCH ×2 (09:07→16:43)
[2020-06-22] MEDS: NYSTATIN TOP POWDER 15 GM BOTTLE TP SCH ×2 (09:09→16:43)
--- NOTE | 2020-06-22 09:12 | NUR ---
PT C/O OF ANXIETY AT THIS TIME. VS BP 152/79, HR 78, RR 20, T 97.8, SPO2 97%. PER PT REQUEST, ATIVAN 1MG IV BID PRN FOR ANXIETY WAS ADMINISTERED PER ORDER. WILL CONTINUE TO MONITOR
[2020-06-22] MEDS: IV D5/0.45 NACL 1,000 ML IV PRN (09:16)
[2020-06-22] MEDS: MEROPENEM 1 G in IV NS 0.9% 100 ML IV SCH ×2 (09:18→20:32)
[2020-06-22 10:00] VITALS: BP 152/79
[2020-06-22] MEDS: POTASSIUM CL. PREMIX PERIPHER. 50 ML IV SCH ×4 (10:15→14:24)
[2020-06-22 16:00] VITALS: BP 150/86
--- NOTE | 2020-06-22 16:36 | NUR ---
PT C/O OF NAUSEA, NO EMESIS NOTED. VS WNL. PER PT REQUEST ZOFRAN 4MG IVP Q6HR PRN FOR NAUSEA ADMINISTERED PER ORDER AT THIS TIME. WILL CONTINUE TO MONITOR AND CONTINUE WITH PLAN OF CARE.
--- NOTE | 2020-06-22 19:15 | NUR ---
RN CLOSING NOTES PT AWAKE IN BED AT THIS, PT REMAINED STABLE THROUGH OUT SHIFT. ALL CARE, NEEDS, MEDICATIONS AND TREATMENT ADMINISTERED ANTICIPATED PER ORDER. PT REPOSITIONED Q2HR AND PRN. WOUND CARE TREATMENT ADMINISTERED. SAFETY AND ASPIRATION PRECAUTIONS IN PLACE AND MAINTAINED AT ALL TIME. BED IN LOWEST LOCKED POSITION, SIDE RAILS UPX2, HOB ELEVATED, CALL LIGHT AND TABLE WITHIN REACH. WILL ENDORSE TO HABILITATION WORKER NURSE F0R GIULIANA
[2020-06-22] MEDS ORDERED: clonazePAM 1 MG TABLET PO PRN (19:30)
--- NOTE | 2020-06-22 19:30 | NUR ---
MS RN OPENING NOTE RECEIVED PATIENT IN BED. A/OX4. TOLERATING ROOM AIR. RESPIRATIONS ARE EVEN AND UNLABORED. NO S/S SOB NOTED. NO C/O PAIN AT THIS TIME. IN NO APPARENT DISTRESS. IV ACCES IN EMY PICC LINE RUNNING D51/2NS@75ML/HR. SITTER AT BEDSIDE. BED IS LOW AND LOCKED, HOB ELEVATED IN SEMI FOWLERS, SIDE RAILS UP X3, CALL LIGHT WITHIN REACH. WILL CONTINUE TO MONITOR THROUGHOUT SHIFT.
[2020-06-22 20:00] VITALS: BP 157/88
[2020-06-22] MEDS: ENOXAPARIN SODIUM 40 MG/0.4 ML DISP.SYRIN SQ SCH (20:32)
[2020-06-22] MEDS: LORAZEPAM INJ 2 MG/ML VIAL IV PRN (20:33)
[2020-06-22] MEDS ORDERED: LORAZEPAM INJ 2 MG/ML VIAL IV PRN (23:30)
[2020-06-23] MEDS: IV D5/0.45 NACL 1,000 ML IV PRN ×2 (05:43→12:40)
--- NOTE | 2020-06-23 06:40 | NUR ---
MS RN CLOSING NOTE PATIENT RESTING IN BED. A/OX4.REMAINS TOLERATING ROOM AIR. NO RESP DISTRESS. NO C/O PAIN THROUGHOUT SHIFT. ATIVAN GIVEN TO MANAGE ANXIETY AND HELP WITH SLEEP. NO C/O PAIN THROUGHOUT SHIFT. NO DISTRESS. IV ACCESS MAINTAINED IN EMY PICC LINE RUNNING D51/2NS@75ML/HR. SITTER REMAINS AT BEDSIDE. BED CONTINUES TO BE LOW AND LOCKED, HOB ELEVATED IN SEMI FOWLERS, SIDE RAILS UP X3, CALL LIGHT WITHIN REACH, ON SPECIALITY MATRESS. WILL ENDORSE TO ONCOMING SHIFT.
[2020-06-23 06:44] LABS: BASOPHILS # (AUTO) 0.1 /CMM (0.0-0.2); BASOPHILS % (AUTO) 0.7 % (0.0-2.0); EOSINOPHILS % (AUTO) 4.4 % (0.0-6.0); HEMATOCRIT 36 % (33-45); LYMPHOCYTES # (AUTO) 1.5 /CMM (0.8-4.8); LYMPHOCYTES % (AUTO) 18.3 % (20.0-44.0); MEAN CORPUSCULAR HGB CONC 33 g/dl (31.0-36.0); MEAN CORPUSCULAR VOLUME 78 fL (82-100); MONOCYTES # (AUTO) 0.7 /CMM (0.1-1.30); MONOCYTES % (AUTO) 8.8 % (2.0-12.0); NEUTROPHILS # (AUTO) 5.5 /CMM (1.8-8.9); NEUTROPHILS % (AUTO) 67.8 % (43.0-81.0); PLATELET COUNT (AUTO) 243 /CMM (150-450); RED BLOOD CELL COUNT(AUTO) 4.65 MIL/uL (4.0-5.2); WHITE BLOOD COUNT (AUTO) 8.1 K/uL (4.3-11.0)
[2020-06-23 07:26] LABS: CALCIUM, SERUM 8.9 mg/dL (8.5-10.1); CREATININE 0.9 mg/dL (0.6-1.3); PHOSPHORUS 2.3 mg/dL (2.5-4.9); POTASSIUM 3.6 mmol/L (3.5-5.1)
[2020-06-23] MEDS: PANTOPRAZOLE 40 MG VIAL IV SCH (08:26)
[2020-06-23] MEDS: MEROPENEM 1 G in IV NS 0.9% 100 ML IV SCH ×2 (08:26→20:48)
[2020-06-23] MEDS: NYSTATIN TOP POWDER 15 GM BOTTLE TP SCH ×2 (08:27→16:30)
[2020-06-23] MEDS: MUPIROCIN 2% CREAM 15 GM TUBE TP SCH ×2 (08:27→16:31)
[2020-06-23] MEDS: HYDROMORPHONE INJ 2 MG/ML DISP.SYRIN IV PRN ×3 (08:29→18:43)
[2020-06-23] MEDS: LORAZEPAM INJ 2 MG/ML VIAL IV PRN ×3 (08:30→18:43)
--- NOTE | 2020-06-23 08:35 | NUR ---
MS RN OPENING NOTE PT RECEIVED ASLEEP IN BED BUT AROUSABLE AND RESPONSIVE. PT IS A/O X 4 AND IN NO DISTRESS AT THIS TIME. PT C/O GENERALIZED, ACHING PAIN RATED 10/10 AND ANXIETY. ADMINISTERED DILAUDID 1 MG IV PRN AND ATIVAN 0.5 MG IV PRN ORDERED PER PT REQUEST. PT IS ON ROOM AIR WITH NO SOB OR RESPIRATORY DISTRESS NOTED. PT HAS AN IV ACCESS ON RIGHT UPPER ARM PICC LINE RUNNING D5 1/2 NS AT 75 ML/HR, PATENT, INTACT AND FLUSHING WELL WITH NO S/SX OF INFECTION OR INFILTRATION. SAFETY MEASURES IN PLACE: BED IN LOWEST POSITION AND LOCKED WITH BOTH UPPER SIDE RAILS UP X2. CALL LIGHT PLACED WITHIN REACH. WILL CONTINUE TO MONITOR.
--- NOTE | 2020-06-23 12:40 | NUR ---
MS RN NOTE PT C/O ANXIETY. ADMINISTERED ATIVAN 0.5MG IV Q4H PRN ORDERED PER PT'S REQUEST. WILL CONTINUE TO MONITOR.
[2020-06-23] MEDS ORDERED: Sodium Phosphate 15 MMOL in IV NS 0.9% 245 ML IV SCH (14:00)
--- NOTE | 2020-06-23 14:35 | NUR ---
MS RN NOTE PT C/O GENERALIZED PAIN RATED 9/10. ADMINISTERED DILAUDID 1MG IV Q4H PRN ORDERED PER PT'S REQUEST. WILL CONTINUE TO MONITOR.
--- NOTE | 2020-06-23 18:06 | NUR ---
MS RN NOTE SEEN BY DR. OROPEZA. EVALUATED FOR SUICIDAL IDEATION. PT STATED SHE IS STILL HAVING SUICIDAL IDEATION. DR. OROPEZA AWARE. 1:1 SITTER AT BED SIDE. WILL CONTINUE TO MONITOR.
--- NOTE | 2020-06-23 18:47 | NUR ---
MS RN NOTE PT C/O GENERALIZED PAIN RATED 9/10. ADMINISTERED DILAUDID 1MG IV Q4H PRN ORDERED PER PT'S REQUEST. PT ALSO C/O ANXIETY. ADMINISTERED ATIVAN 0.5MG IV Q4H PRN PER PT'S REQUEST. WILL CONTINUE TO MONITOR.
--- NOTE | 2020-06-23 19:05 | NUR ---
MS RN CLOSING NOTE PT REMAINS IN BED, AROUSABLE AND RESPONSIVE. PT IS A/O X 4 AND IN NO DISTRESS AT THIS TIME. PT IS ON ROOM AIR WITH NO SOB OR RESPIRATORY DISTRESS NOTED. PT HAS AN IV ACCESS ON RIGHT UPPER ARM PICC LINE RUNNING D5 1/2 NS AT 75 ML/HR, PATENT, INTACT AND FLUSHING WELL WITH NO S/SX OF INFECTION OR INFILTRATION. SAFETY MEASURES MAINTAINED: BED IN LOWEST, LOCKED POSITION WITH BOTH UPPER SIDE RAILS UP X2. CALL LIGHT PLACED WITHIN REACH. PT HAS A 1:1 SITTER AT BEDSIDE. WILL ENDORSE TO SR. MEDIA MANAGER NURSE.
--- NOTE | 2020-06-23 19:30 | NUR ---
MS/RN OPENING NOTES RECEIVED PATIENT IN BED RESTING. PATIENT IS ALERT AND ORIENTED X 4. PATIENT BREATHING IS EVEN AND UNLABORED. PATIENT SHOWS NO SIGNS OF SOB OR RESPIRATORY DISTRESS NOTED. PATIENT STATES GENERALIZED PAIN. IV ACCESS ON EMY INTACT FLUSHING WELL. SAFETY MEASURES ARE IN PLACE. BED IS LOCKED AND PLACED IN THE LOW POSITION. CALL LIGHT IS WITHIN REACH. WILL CONTINUE WITH PATIENT PLAN OF CARE.
[2020-06-23 20:00] VITALS: BP 155/59
[2020-06-23] MEDS: OLANZAPINE 10 MG VIAL IM PRN (20:48)
[2020-06-23] MEDS: ENOXAPARIN SODIUM 40 MG/0.4 ML DISP.SYRIN SQ SCH (20:50)
--- NOTE | 2020-06-23 21:00 | NUR ---
MS/RN NOTES PATIENT REQUESTING FOR AID IN SLEEP AND HELPING TO CALM ANXIETY. PATIENT GIVING ZYPREXA IM 5 MG. PATIENT V/S ARE WITHIN NORMAL LIMITS. WILL CONTINUE TO MONITOR.
[2020-06-24] MEDS: IV D5/0.45 NACL 1,000 ML IV PRN ×2 (05:12→18:32)
--- NOTE | 2020-06-24 06:35 | NUR ---
MS/RN CLOSING NOTES PATIENT IN BED SLEEPING EASY TO AROUSE. PATIENT IS ALERT AND ORIENTED X 4. PATIENT BREATHING IS EVEN AND UNLABORED. PATIENT SHOWS NO SIGNS OF SOB OR RESPIRATORY DISTRESS NOTED. IV ACCESS ON EMY INTACT FLUSHING WELL. ALL NEEDS MET. SAFETY MEASURES ARE IN PLACE. BED IS LOCKED AND PLACED IN THE LOW POSITION. CALL LIGHT IS WITHIN REACH. WILL ENDORSE CARE TO DAY SHIFT NURSE.
[2020-06-24 07:22] LABS: BASOPHILS # (AUTO) 0.1 /CMM (0.0-0.2); BASOPHILS % (AUTO) 1.1 % (0.0-2.0); EOSINOPHILS % (AUTO) 5.2 % (0.0-6.0); HEMATOCRIT 37 % (33-45); LYMPHOCYTES # (AUTO) 1.6 /CMM (0.8-4.8); LYMPHOCYTES % (AUTO) 22.8 % (20.0-44.0); MEAN CORPUSCULAR HGB CONC 33 g/dl (31.0-36.0); MEAN CORPUSCULAR VOLUME 78 fL (82-100); MONOCYTES # (AUTO) 0.6 /CMM (0.1-1.30); MONOCYTES % (AUTO) 7.9 % (2.0-12.0); NEUTROPHILS # (AUTO) 4.4 /CMM (1.8-8.9); PLATELET COUNT (AUTO) 253 /CMM (150-450); RED BLOOD CELL COUNT(AUTO) 4.66 MIL/uL (4.0-5.2)
--- NOTE | 2020-06-24 07:33 | NUR ---
MS/RN OPENING NOTES RECEIVED PATIENT IS ON BED SLEEPING, EASILY AOURASABLE BY NAME AND LIGHT TOUCH. ALERT AND ORIENTED X 4. PATIENT IS ON ROOM AIR SATURATING WELL. PATIENT IN NO APPARENT RESPIRATORY DISTRESS NOTED. NO COMPLAINED OF PAIN NOTED AT THIS TIME. PATIENT HAD 1:1 SITTER AT ALL TIMES. WILL CONTINUE TO MONITOR.
[2020-06-24 07:58] LABS: ALBUMIN 2.8 g/dL (3.4-5.0); BILIRUBIN,TOTAL 0.5 mg/dL (0.2-1.0); CALCIUM, SERUM 9.2 mg/dL (8.5-10.1); MAGNESIUM 1.9 mg/dL (1.8-2.4); PHOSPHORUS 3.2 mg/dL (2.5-4.9); POTASSIUM 3.5 mmol/L (3.5-5.1); TOTAL PROTEIN, SERUM 6.6 g/dL (6.4-8.2)
[2020-06-24] MEDS: PANTOPRAZOLE 40 MG VIAL IV SCH (08:14)
[2020-06-24] MEDS: MEROPENEM 1 G in IV NS 0.9% 100 ML IV SCH ×2 (08:14→20:06)
[2020-06-24] MEDS: NYSTATIN TOP POWDER 15 GM BOTTLE TP SCH ×2 (08:23→18:17)
[2020-06-24] MEDS: MUPIROCIN 2% CREAM 15 GM TUBE TP SCH ×2 (08:23→18:17)
[2020-06-24] MEDS: HYDROMORPHONE INJ 2 MG/ML DISP.SYRIN IV PRN ×3 (09:32→20:07)
[2020-06-24] MEDS: LORAZEPAM INJ 2 MG/ML VIAL IV PRN ×3 (09:36→20:06)
--- NOTE | 2020-06-24 19:15 | NUR ---
MS/RN CLOSING NOTES PATIENTS IS ON BED ALERT AND ORIENTED X4. PATIENT IS ON ROOM AIR SATURATION 98%. PATIENT IN NO APPARENT RESPIRATORY DISTRESS NOTED. NO COMPLAINED OF PAIN AT THIS TIME. SEEN AND EXAMINED BY MD WITH ORDERS MADE AND CARRIED OUT. ALL DUE MEDICATIONS WAS GIVEN. 1:1 SITTER IS ON ALL THE TIME. IV ACCESS AT RIGHT UPPER ARM PICC LINE WITH IV FLUIDS OF D5 1/2 NS 1L ON AND INFUSING WELL. SAFETY PRECAUTIONS WAS IN PLACED. BED IN LOWEST POSITION AND LOCKED. SIDE RAILS UP X2. WILL ENDORSED TO THERAPEUTIC MASSAGE TECHNICIAN FOR GIULIANA.
[2020-06-24] MEDS: ENOXAPARIN SODIUM 40 MG/0.4 ML DISP.SYRIN SQ SCH (20:08)
--- NOTE | 2020-06-24 20:10 | NUR ---
MS RN NOTE PT C/O GENERALIZED PAIN RATED. ADMINISTERED DILAUDID 1MG IV Q4H PRN ORDERED PER PT'S REQUEST. PT ALSO C/O ANXIETY. ADMINISTERED ATIVAN 0.5MG IV Q4H PRN PER PT'S REQUEST. VITAL SIGNS WITHIN NORMAL LIMITS. WILL CONTINUE TO MONITOR.
--- NOTE | 2020-06-24 21:25 | NUR ---
MS/RN NOTES DR OROPEZA SEEN PATIENT IN ROOM WITH RN. PATIENT STATED S/I WITH NO PLAN. PATIENT TO REMAIN NPO. NO NEW ORDERS AT THIS TIME.
[2020-06-24 23:49] VITALS: BP 125/98
[2020-06-25] MEDS: OLANZAPINE 10 MG VIAL IM PRN ×2 (00:33→21:47)
--- NOTE | 2020-06-25 00:45 | NUR ---
MS/RN NOTES: ZYPREXA PATIENT COMPLAINING OF PAIN GENERALIZED BODY, NOT FEELING CALM, AND NEEDS HELP WITH SLEEPING AT NIGHT. PATIENT GIVEN ZYPREXA IM 5 MG VITAL SIGNS: BP : 155/76 HR: 76 O2: 93 RR: 18 TEMP 97.7
--- NOTE | 2020-06-25 06:30 | NUR ---
MS/RN CLOSING NOTES PATIENT IN BED RESTING. PATIENT IS ALERT AND ORIENTED X 4. PATIENT BREATHING IS EVEN AND UNLABORED. PATIENT SHOWS NO SIGNS OF SOB OR RESPIRATORY DISTRESS NOTED. IV ACCESS ON EMY INTACT FLUSHING WELL. ALL NEEDS MET DURING SHIFT. SAFETY MEASURES ARE IN PLACE. BED IS LOCKED AND PLACED IN THE LOW POSITION. CALL LIGHT IS WITHIN REACH. WILL ENDORSE TO DAY SHIFT NURSE.
[2020-06-25] MEDS: IV D5/0.45 NACL 1,000 ML IV PRN (06:59)
[2020-06-25 07:05] LABS: BASOPHILS # (AUTO) 0.1 /CMM (0.0-0.2); BASOPHILS % (AUTO) 1.1 % (0.0-2.0); EOSINOPHILS % (AUTO) 6.6 % (0.0-6.0); HEMATOCRIT 37 % (33-45); LYMPHOCYTES # (AUTO) 1.4 /CMM (0.8-4.8); LYMPHOCYTES % (AUTO) 20.1 % (20.0-44.0); MEAN CORPUSCULAR HGB CONC 32 g/dl (31.0-36.0); MEAN CORPUSCULAR VOLUME 79 fL (82-100); MONOCYTES # (AUTO) 0.7 /CMM (0.1-1.30); MONOCYTES % (AUTO) 9.3 % (2.0-12.0); NEUTROPHILS # (AUTO) 4.5 /CMM (1.8-8.9); NEUTROPHILS % (AUTO) 62.9 % (43.0-81.0); PLATELET COUNT (AUTO) 255 /CMM (150-450); RED BLOOD CELL COUNT(AUTO) 4.65 MIL/uL (4.0-5.2); WHITE BLOOD COUNT (AUTO) 7.2 K/uL (4.3-11.0)
[2020-06-25 07:11] LABS: ALBUMIN 2.7 g/dL (3.4-5.0); BILIRUBIN,TOTAL 0.5 mg/dL (0.2-1.0); CALCIUM, SERUM 8.9 mg/dL (8.5-10.1); MAGNESIUM 1.9 mg/dL (1.8-2.4); PHOSPHORUS 2.6 mg/dL (2.5-4.9); POTASSIUM 3.3 mmol/L (3.5-5.1); TOTAL PROTEIN, SERUM 6.5 g/dL (6.4-8.2)
--- NOTE | 2020-06-25 07:30 | NUR ---
MS OPENING NOTES PATIENT RECEIVED IN BED, A/O X 4. BREATHING UNLABORED AND EVEN. PATIENT DOES NOT PRESENT WITH ANY S/S OF RESPIRATORY DISTRESS. DOES NOT COMPLAIN OF ANY PAIN OR DISCOMFORT AT THE MOMENT. SAFETY PRECAUTIONS IN PLACE: SITTER 24 HOURS, SIDE RAILS UP, CALL LIGHT WITHIN REACH, BED IN LOWEST POSITION AND LOCKED. PATIENT ON ROOM AIR AND TOLERATING. IV FLUIDS RUNNING. ENCOURAGED PATIENT TO CALL WHEN IN NEED.
[2020-06-25 08:00] VITALS: BP 157/73
[2020-06-25] MEDS: POTASSIUM CL. PREMIX PERIPHER. 50 ML IV SCH ×2 (09:01→10:44)
[2020-06-25] MEDS: MEROPENEM 1 G in IV NS 0.9% 100 ML IV SCH ×2 (09:01→21:42)
[2020-06-25] MEDS: ONDANSETRON HCL/PF 4 MG/2 ML VIAL IVP PRN (09:02)
[2020-06-25] MEDS: PANTOPRAZOLE 40 MG VIAL IV SCH (09:02)
[2020-06-25] MEDS: HYDROMORPHONE INJ 2 MG/ML DISP.SYRIN IV PRN (09:03)
[2020-06-25] MEDS: MUPIROCIN 2% CREAM 15 GM TUBE TP SCH (09:16)
[2020-06-25] MEDS: NYSTATIN TOP POWDER 15 GM BOTTLE TP SCH ×2 (09:16→19:33)
[2020-06-25] MEDS ORDERED: DIATR MEGLU/DIATRIZOATE SODIUM 30 ML BOTTLE (GASTROGRAPHIN) ONE (10:34)
[2020-06-25] MEDS: LORAZEPAM INJ 2 MG/ML VIAL IV PRN ×2 (10:37→16:23)
[2020-06-25] MEDS ORDERED: IOHEXOL-300 100 ML VIAL IV ONE (14:10)
[2020-06-25] MEDS ORDERED: IV NS 0.9% 250 ML IV ONE (14:10)
[2020-06-25 16:00] VITALS: BP 154/75
--- NOTE | 2020-06-25 19:04 | NUR ---
MS CHANGE OF SHIFT NOTE PATIENT IN BED, A/O X 4. BREATHING UNLABORED AND EVEN. PATIENT DOES NOT PRESENT WITH ANY S/S OF RESPIRATORY DISTRESS, ON ROOM AIR. DOES NOT COMPLAIN OF ANY PAIN OR DISCOMFORT AT THE MOMENT. SAFETY PRECAUTIONS IN PLACE: SITTER PRESENT AT ALL TIMES, SIDE RAILS UP, CALL LIGHT WITHIN REACH, BED IN LOWEST POSITION AND LOCKED. PATIENT ON ROOM AIR AND TOLERATING. D5 1/2 NS RUNNING AT 75 ML/HR. ANTICIPATED PATIENT NEEDS AND MET. ENDORSED TO NIGHT NURSE.
--- NOTE | 2020-06-25 19:30 | NUR ---
MS HUYEN INITIAL NOTES Received report from am nurse and checked the patient , She's awake and alert watching TV at this time. Not in any distress noted. IVF still infusing on her right upper arm midline. no redness noted. Pt complaining of headache but no nausea vomiting noted. Vital signs as FF BP 146/79, Pulse 81, Resp. 16, Temp 98.4 and O2 sat 100 %. Spoke to the pt that I need to call the doctor because her tylenol ordered as suppository. she states "ok". Sitter at the bedside for safety. will continue monitoring.
[2020-06-25 20:00] VITALS: BP 146/79
[2020-06-25] MEDS: ENOXAPARIN SODIUM 40 MG/0.4 ML DISP.SYRIN SQ SCH (21:17)
--- NOTE | 2020-06-25 21:50 | NUR ---
ms amador notes' Patient stated feeling depressed, agitated, demanding , Zyprexa IM 5mg given as ordered. no signs of any distress noted. vital signs within normal limit. sitter at the bedside. will continue closely monitoring.
--- NOTE | 2020-06-26 | NUR ---
stove cleaner notes pt sleeping comfortably in bed without any distress noted. respiration even and unlabored. IVF still infusing. kept her warm and comfortable at all times. will continue monitoring. sitter at the bed side.
[2020-06-26] MEDS: IV D5/0.45 NACL 1,000 ML IV PRN ×2 (04:23→19:50)
[2020-06-26] MEDS: LORAZEPAM INJ 2 MG/ML VIAL IV PRN ×3 (04:32→17:59)
--- NOTE | 2020-06-26 04:32 | NUR ---
ms dining room maid notes pt called and asking for Ativan, she states that she feel nervous and feeling anxious. Ativan 0.5 mg administered by another RN albin IVP as ordered. will continue monitoring. sitter at the bedside for safety.
[2020-06-26 07:09] LABS: BASOPHILS % (AUTO) 0.5 % (0.0-2.0); HEMATOCRIT 40 % (33-45); HEMOGLOBIN 13.1 g/dL (11.5-14.8); LYMPHOCYTES # (AUTO) 0.9 /CMM (0.8-4.8); LYMPHOCYTES % (AUTO) 9.4 % (20.0-44.0); MEAN CORPUSCULAR HGB CONC 33 g/dl (31.0-36.0); MEAN CORPUSCULAR VOLUME 79 fL (82-100); MONOCYTES # (AUTO) 0.3 /CMM (0.1-1.30); MONOCYTES % (AUTO) 2.8 % (2.0-12.0); NEUTROPHILS # (AUTO) 7.6 /CMM (1.8-8.9); NEUTROPHILS % (AUTO) 83.3 % (43.0-81.0); PLATELET COUNT (AUTO) 275 /CMM (150-450); RED BLOOD CELL COUNT(AUTO) 5.08 MIL/uL (4.0-5.2); WHITE BLOOD COUNT (AUTO) 9.1 K/uL (4.3-11.0)
--- NOTE | 2020-06-26 07:40 | NUR ---
MS REFERRAL COORDINATOR CLOSING NOTES PT RESTING AT THIS TIME. SLEPT WELL AND SHE SEEMS RELAXED AFTER ATIVAN GIVEN EARLIER. NOT IN ANY ACUTE DISTRESS NOTED. ALL DUE MEDS GIVEN AND ALL NEEDS MET. KEPT MORNING CARE DONE WELL SKIN TREATMENT KEPT HER WARM AND COMFORTABLE AT ALL TIMES. PLACE CALL LIGHT AT REACH. ENDORSE TO AM NURSE FOR CONTINUITY OF CARE.
[2020-06-26 07:42] VITALS: BP 133/73
[2020-06-26] MEDS: MEROPENEM 1 G in IV NS 0.9% 100 ML IV SCH ×2 (09:06→20:07)
[2020-06-26] MEDS: PANTOPRAZOLE 40 MG VIAL IV SCH (09:07)
[2020-06-26] MEDS: NYSTATIN TOP POWDER 15 GM BOTTLE TP SCH ×2 (09:08→17:21)
[2020-06-26 10:24] LABS: ALBUMIN 2.6 g/dL (3.4-5.0); BILIRUBIN,TOTAL 0.9 mg/dL (0.2-1.0); CALCIUM, SERUM 8.8 mg/dL (8.5-10.1); CREATININE 1.1 mg/dL (0.6-1.3); MAGNESIUM 1.7 mg/dL (1.8-2.4); POTASSIUM 3.4 mmol/L (3.5-5.1); TOTAL PROTEIN, SERUM 6.4 g/dL (6.4-8.2)
--- NOTE | 2020-06-26 12:02 | NUR ---
Seen by Dr. Ayon, received order hold 72 hours due to SI. Started at 11:51am.
--- NOTE | 2020-06-26 15:54 | NUR ---
RN Opening note Received patient in bed, AO x 3-4, able to responds all stimuli. Does no appears pain or distress, sitter at bed side for SI/HI safety. Respiratory even and unlabored in room air, no sob. Skin is warm to touch, keep clean/dry. Keep elevated HOB for ensure airway and aspiration precaution,also lowest bed position for safety. Call light within reach, will continue to monitor.
[2020-06-26 16:00] VITALS: BP 148/76
--- NOTE | 2020-06-26 18:30 | NUR ---
RN Closing note Patient in bed, able to responds all stimuli. No SI/HI observed during day shift. Respiratory even and unlabored on room air. Skin is warm to touch keep clean/dry, intact IV site running IV fluid D5 1/2NS at 75 ml/hr. Keep elevated HOB for ensure airway and aspiration precaution, also lowest bed position for safety. Sitter at bed side. Call light within reach, will endorse to inspector filter tip.
--- NOTE | 2020-06-26 19:40 | NUR ---
RN NOTES Patient in bed, able to responds all stimuli. No SI/HI observed at this time. Respiratory even and unlabored on room air. Skin is warm to touch keep clean/dry, intact IV site running IV fluid D5 1/2NS at 75 ml/hr. Keep elevated HOB for ensure airway and aspiration precaution, also lowest bed position for safety. Sitter at bed side. Call light within reach, will continue to monitor.
[2020-06-26 20:00] VITALS: BP 124/77
--- NOTE | 2020-06-26 20:08 | NUR ---
RN NOTES SPOKE TO MD ANN PER MD SHELTON TO START PT ON P.O MEDICATIONS AT THIS TIME.
--- NOTE | 2020-06-26 20:10 | NUR ---
RN NOTES SEEN BY DR OROPEZA WITH NEW ORDERS FOR BUPROPION, RISPERIDONE AND LITHIUM NOTED AND CARRIED OUT.
[2020-06-26] MEDS: LITHIUM CARBONATE 150 MG CAPSULE PO SCH (20:13)
[2020-06-26] MEDS: ENOXAPARIN SODIUM 40 MG/0.4 ML DISP.SYRIN SQ SCH (20:16)
[2020-06-27] MEDS: LORAZEPAM INJ 2 MG/ML VIAL IV PRN ×3 (01:46→14:02)
--- NOTE | 2020-06-27 06:34 | NUR ---
RN NOTES Patient in bed, but able to be woken up easily. Respiratory even and unlabored on room air. Skin is warm to touch keep clean/dry, intact IV site running IV fluid D5 1/2NS at 75 ml/hr. Keep elevated HOB for ensure airway and aspiration precaution, also lowest bed position for safety. pt on 5150 hold for suicidal ideation Sitter at bed side. Call light within reach, will endorse care to day shift nurse.
[2020-06-27 06:52] LABS: BASOPHILS % (AUTO) 0.7 % (0.0-2.0); EOSINOPHILS % (AUTO) 6.8 % (0.0-6.0); HEMATOCRIT 35 % (33-45); HEMOGLOBIN 11.6 g/dL (11.5-14.8); LYMPHOCYTES # (AUTO) 1.2 /CMM (0.8-4.8); LYMPHOCYTES % (AUTO) 18.3 % (20.0-44.0); MEAN CORPUSCULAR HGB CONC 33 g/dl (31.0-36.0); MEAN CORPUSCULAR VOLUME 78 fL (82-100); MONOCYTES # (AUTO) 0.4 /CMM (0.1-1.30); MONOCYTES % (AUTO) 6.7 % (2.0-12.0); NEUTROPHILS # (AUTO) 4.5 /CMM (1.8-8.9); NEUTROPHILS % (AUTO) 67.5 % (43.0-81.0); PLATELET COUNT (AUTO) 237 /CMM (150-450); RED BLOOD CELL COUNT(AUTO) 4.49 MIL/uL (4.0-5.2); WHITE BLOOD COUNT (AUTO) 6.6 K/uL (4.3-11.0)
--- NOTE | 2020-06-27 07:30 | NUR ---
ms rn received on bed, awake,alert,oriented x3-4,not in any form of distress,respirations even and unlabored,no sob noted, lungs are diminish,abdomen soft,positive bowel sounds,denies pain at this time, schmitt catheter to gravity bag w/ yellowish urine output, picc line at right upper arm, patent lumens, on iv hydration of d5,5ns at 75ml/hr infusing well, w/ one on one sitter for safety and comfort,noted to have suicidal intentions as verbalizes by patient,all needs attended.
[2020-06-27 08:04] LABS: ALBUMIN 2.4 g/dL (3.4-5.0); BILIRUBIN,TOTAL 0.5 mg/dL (0.2-1.0); CALCIUM, SERUM 8.7 mg/dL (8.5-10.1); MAGNESIUM 1.9 mg/dL (1.8-2.4); PHOSPHORUS 2.3 mg/dL (2.5-4.9); POTASSIUM 3.5 mmol/L (3.5-5.1); TOTAL PROTEIN, SERUM 5.8 g/dL (6.4-8.2)
--- NOTE | 2020-06-27 09:00 | NUR ---
ms catherine altman served,due meds given tolerated well.
[2020-06-27] MEDS: risperiDONE 1 MG TABLET PO SCH ×2 (09:08→18:45)
[2020-06-27] MEDS: MEROPENEM 1 G in IV NS 0.9% 100 ML IV SCH ×2 (09:08→20:57)
[2020-06-27] MEDS: PANTOPRAZOLE 40 MG VIAL IV SCH (09:08)
[2020-06-27] MEDS: LITHIUM CARBONATE 150 MG CAPSULE PO SCH ×2 (09:09→21:03)
[2020-06-27] MEDS: BUPROPION XL 150 MG TAB.ER.24 PO SCH (09:09)
[2020-06-27] MEDS: NYSTATIN TOP POWDER 15 GM BOTTLE TP SCH ×2 (09:28→18:46)
[2020-06-27] MEDS ORDERED: NEUTRA PHOS 1 POWD.PACKET PO ONE (10:30)
[2020-06-27] MEDS: IV D5/0.45 NACL 1,000 ML IV PRN (11:36)
--- NOTE | 2020-06-27 18:52 | NUR ---
MS RN ON BED, NO DISTRESS NOTED.
[2020-06-27 19:22] VITALS: BP 124/74
--- NOTE | 2020-06-27 20:00 | NUR ---
MS RN: CONTINUITY OF CARE Patient in bed, awake A/O x3. IVF infusing. Reports feeling nervous, states she needs her Ativan tonight for sleep. Suicidal thought positive, patient states she will take a bottle of sleeping medication if she have it. On 72 hours hold, remains on sitter at bedside.
[2020-06-27] MEDS: ENOXAPARIN SODIUM 40 MG/0.4 ML DISP.SYRIN SQ SCH (21:00)
--- NOTE | 2020-06-27 21:00 | NUR ---
MS RN: ANTICOAGULANT H/H 11. Plt 237 No active bleeding. Lovenox injection given, co-signed by BERNICE Sy.
[2020-06-27] MEDS: clonazePAM 0.5 MG TABLET PO SCH (21:08)
[2020-06-27] MEDS: risperiDONE-M 0.5 MG TAB.RAPDIS PO PRN (23:52)
[2020-06-28] MEDS: IV D5/0.45 NACL 1,000 ML IV PRN (01:08)
[2020-06-28] MEDS: HYDROMORPHONE INJ 2 MG/ML DISP.SYRIN IV PRN ×4 (04:27→21:41)
--- NOTE | 2020-06-28 06:17 | NUR ---
MS RN: END OF SHIFT REPORT On 72 hours Hold expires 06/29/20. Patient with SI, plan to take bottle of sleeping medication. Sitter remains at bedside. On full liquids, tolerating well, good appetite. IVF infusing, on IV Meropenem. Had BM this morning. Body ache improved with Dilaudid. Patient reports Klonopin not helping her to sleep, requesting Ativan to continue. Education provided with length of time, patient still insisted and states she will not take Klonopin anymore. Will endorse to oncoming RN.
--- NOTE | 2020-06-28 08:00 | NUR ---
MS RN OPENING NOTES RECEIVED PT ON BED AAOX4, WITH SITTER DUE TO SI. RESPIRATION EVEN AND NON LABORED WITH NO ACUTE RESPIRATORY DISTRESS. ABD SOFT AND NON DISTENDED WITH ACTIVE BOWEL SOUNDS, LBM 06/28. SKIN WARM TO TOUCH AND DRY. PT DENIES PAIN AND DISCOMFORT AT THIS TIME. IV SITE AT RIGHT UPPER ARM PICC LINE, NO S/SX OF INFILTRATION, PATENT IN FLUSHING WITH DN 1/2 NS @ 75 ML/HR. FC ON YELLOW OUTPUT. BED IN LOW LOCKED POSITION, CALL LIGHT WITHIN REACHED, SRX2 UP FOR SAFETY, WILL CONT TO MONITOR CARE
[2020-06-28] MEDS ORDERED: risperiDONE 1 MG TABLET PO SCH (09:00)
[2020-06-28] MEDS: clonazePAM 0.5 MG TABLET PO SCH ×3 (09:00→17:28)
[2020-06-28] MEDS: MEROPENEM 1 G in IV NS 0.9% 100 ML IV SCH ×2 (09:09→21:32)
[2020-06-28] MEDS: NYSTATIN TOP POWDER 15 GM BOTTLE TP SCH ×2 (09:29→17:28)
[2020-06-28] MEDS: BUPROPION XL 150 MG TAB.ER.24 PO SCH (09:29)
[2020-06-28] MEDS: LITHIUM CARBONATE 150 MG CAPSULE PO SCH ×2 (09:29→21:30)
[2020-06-28] MEDS: PANTOPRAZOLE 40 MG TABLET.DR PO SCH (09:30)
--- NOTE | 2020-06-28 09:39 | NUR ---
M/S RN NOTES PT REFUSED KLONOPIN ORDERED. RISK AND BENEFITS DISCUSSED. PT CONTINUE TO REFUSED. PT IS ADAMANT FOR ATIVAN. RE-EXPLAINED THAT CONCERN FROM SPACE ENGINEER. SITTER IN PLACE. NO SI NOTED DURING MED PASS. WILL CONT TO MONITOR
[2020-06-28] MEDS ORDERED: NEUTRA PHOS 1 POWD.PACKET PO ONE (11:00)
--- NOTE | 2020-06-28 13:54 | NUR ---
M/S RN NOTES PT REFUSED KLONOPIN ORDERED, OFFERED X3. ADAMANT WITH ATIVAN. PT NOT RESTLESS/COMBATIVE/SI IDEATION. SITTER IN PLACED. CONT TO MONITOR
--- NOTE | 2020-06-28 17:12 | NUR ---
M/S RN NOTES MAALOX 30 ML PO Q6 PRN OBTAINED FROM CANDIDA HASKINS CHARGE NURSE. ORDER READ BACK NOTED AND CARRIED OUT
[2020-06-28] MEDS: risperiDONE 1 MG TABLET PO SCH (17:28)
[2020-06-28] MEDS ORDERED: MAG HYDROX/AL HYDROX/SIMETH 30 ML UDC PO PRN (17:30)
--- NOTE | 2020-06-28 19:04 | NUR ---
M/S RN CLOSING NOTES PT AAOX4, WITH SITTER DUE TO SI, PT VERBALIZED SI X1 DURING THE SHIFT WITH NO DETAILED PLANNING. NO SOB NOTED. NO PAIN NOTED. IV SITE AT RIGHT UPPER ARM PICC LINE, NO S/SX OF INFILTRATION, H/L. FC ON YELLOW OUTPUT. BED IN LOW LOCKED POSITION, CALL LIGHT WITHIN REACHED, SRX2 UP FOR SAFETY, ALL CONCERNS NOTED. ENDORSED CARE TO NEXT SHIFT.
--- NOTE | 2020-06-28 19:08 | NUR ---
MS RN: CONTINUITY OF CARE Patient in bed, awake, on the phone talking. Patient states she needs her pain medication now and wants to go ER. Patient is A/O x3, follows command, mood swing, crying behavior, uncooperative with turning and repositioning. On 14 days Hold, sitter at bedside.
[2020-06-28 20:00] VITALS: BP 113/59
[2020-06-28] MEDS: ENOXAPARIN SODIUM 40 MG/0.4 ML DISP.SYRIN SQ SCH (21:49)
--- NOTE | 2020-06-28 21:50 | NUR ---
MS RN: ANTICOAGULANT H/H 11. Plt 237 No active bleeding. Lovenox injection given, co-signed with BERNICE Vo.
[2020-06-28] MEDS: risperiDONE-M 0.5 MG TAB.RAPDIS PO PRN (22:45)
--- NOTE | 2020-06-29 06:33 | NUR ---
MS RN: END OF SHIFT REPORT No SI in the last 12 hours. Abdominal pain controlled with Dilaudid, on Full liquids diet, denies N/V. On IV Meropenem, EMY PICC line intact. Uncooperative with turning and repositioning. Oden cath to gravity with good urine output. Will endorse to oncoming RN.
[2020-06-29 07:00] LABS: CALCIUM, SERUM 8.9 mg/dL (8.5-10.1); PHOSPHORUS 2.7 mg/dL (2.5-4.9); POTASSIUM 4.1 mmol/L (3.5-5.1)
--- NOTE | 2020-06-29 07:30 | NUR ---
MS RN OPENING NOTE RECEIVED PATIENT IN BED. A/O X 4. ON ROOM AIR, TOLERATING WELL. NO SOB NOTED. IN NO APPARENT DISTRESS. GUNTER CATHETER INTACT, DRAINING YELLOW URINE. IV ACCESS ON EMY PICC LINE, INTACT. NO SUICIDAL IDEATION AT THIS TIME. SITTER AT THE BEDSIDE FOR MONITORING. SAFETY MEASURES MAINTAINED. BED IN LOWEST POSITION, BRAKES LOCKED. CALL LIGHT WITHIN REACH. WILL CONTINUE PLAN OF CARE.
[2020-06-29 08:00] VITALS: BP 114/52
[2020-06-29] MEDS: clonazePAM 0.5 MG TABLET PO SCH ×2 (08:45→12:34)
[2020-06-29] MEDS: risperiDONE 1 MG TABLET PO SCH (08:45)
[2020-06-29] MEDS: LITHIUM CARBONATE 150 MG CAPSULE PO SCH (08:46)
[2020-06-29] MEDS: PANTOPRAZOLE 40 MG TABLET.DR PO SCH (08:46)
[2020-06-29] MEDS: BUPROPION XL 150 MG TAB.ER.24 PO SCH (08:47)
[2020-06-29] MEDS: MEROPENEM 1 G in IV NS 0.9% 100 ML IV SCH (08:52)
[2020-06-29] MEDS: NYSTATIN TOP POWDER 15 GM BOTTLE TP SCH (08:53)
[2020-06-29] MEDS: HYDROMORPHONE INJ 2 MG/ML DISP.SYRIN IV PRN (09:07)
--- NOTE | 2020-06-29 14:09 | NUR ---
MS RN NOTE PATIENT IS CLEARED BY SURGERY PER JEREMIAS CROWE NP.
[2020-06-29 16:00] VITALS: BP 118/58
[2020-06-29] MEDS ORDERED: HYDR1DIS2 IVP (16:55)
[2020-06-29] MEDS ORDERED: ACET650S11 RC (16:55)
[2020-06-29] MEDS ORDERED: BUPR-96 PO (16:55)
[2020-06-29] MEDS ORDERED: NYST15PO4 TP (16:55)
[2020-06-29] MEDS ORDERED: ONDA4VIA52 IVP (16:55)
[2020-06-29] MEDS ORDERED: ENOX40DI SQ (16:55)
[2020-06-29] MEDS ORDERED: THERAHONEY GEL TD (16:55)
[2020-06-29] MEDS ORDERED: CLON0.5T PO (16:55)
[2020-06-29] MEDS ORDERED: RISP0.2515 PO ×2 (16:55)
[2020-06-29] MEDS ORDERED: MAG30ORA PO (16:55)
[2020-06-29] MEDS ORDERED: ALLA266C2 TP (16:55)
== END 2020-06-29 16:17 | DRG 981 ==
LOC: ER 13:12 → TELE1 16:36 → MEDSG1 06-21 09:36 → MED 06-21 09:56
PROVIDERS: ADMIT Nurse Practitioner Acute Care
PROC: 05H933Z Insertion of Infusion Device into Right Brachial Vein, Percutaneous Approach (ICD-10-PCS; 2020-06-18)
PROC: 02HV33Z Insertion of Infusion Device into Superior Vena Cava, Percutaneous Approach (ICD-10-PCS; 2020-06-19)
PROC: B548ZZA Ultrasonography of Superior Vena Cava, Guidance (ICD-10-PCS; 2020-06-19)
PROC: 0KBP0ZZ Excision of Left Hip Muscle, Open Approach (ICD-10-PCS; principal; 2020-06-23)
PROC: 0KBN0ZZ Excision of Right Hip Muscle, Open Approach (ICD-10-PCS; 2020-06-23)
DX: K57.20 Diverticulitis of large intestine with perforation and abscess without bleeding (principal); R53.2 Functional quadriplegia; L89.154 Pressure ulcer of sacral region, stage 4; N17.0 Acute kidney failure with tubular necrosis; K65.9 Peritonitis, unspecified; N13.30 Unspecified hydronephrosis; E87.1 Hypo-osmolality and hyponatremia; E44.0 Moderate protein-calorie malnutrition; R45.851 Suicidal ideations; J98.11 Atelectasis; F31.5 Bipolar disorder, current episode depressed, severe, with psychotic features; Z79.82 Long term (current) use of aspirin; Z90.49 Acquired absence of other specified parts of digestive tract; E86.1 Hypovolemia; Z20.822 Contact with and (suspected) exposure to COVID-19; I10 Essential (primary) hypertension; G62.9 Polyneuropathy, unspecified; Z85.528 Personal history of other malignant neoplasm of kidney; Z74.01 Bed confinement status; G89.29 Other chronic pain; Z88.1 Allergy status to other antibiotic agents; M19.90 Unspecified osteoarthritis, unspecified site; Z79.01 Long term (current) use of anticoagulants; Z79.899 Other long term (current) drug therapy; K59.00 Constipation, unspecified; Z91.410 Personal history of adult physical and sexual abuse; Z91.5 Personal history of self-harm; Z86.59 Personal history of other mental and behavioral disorders; E87.6 Hypokalemia; F31.9 Bipolar disorder, unspecified; F39 Unspecified mood [affective] disorder; M51.36 Other intervertebral disc degeneration, lumbar region; L30.4 Erythema intertrigo; G47.00 Insomnia, unspecified; I70.0 Atherosclerosis of aorta; I70.8 Atherosclerosis of other arteries
CPT/HCPCS: 36415; 71045-TC; 80048-TC; 80053-TC; 80076-TC; 81001; 83605-TC; 83690-TC; 83735-TC; 84100-TC; 84484-TC; 85025-TC; 85730-TC; 87040-TC; 87081-TC; 87086-TC; 93307-TC; A6253; A9563; C1751; C9113; G0378; J1170; J1650; J2060; J2185; J2405; J3360; J3480; J3490; J7030; J7042; J7050; Q9963; Q9967; U0003

== ENCOUNTER 2020-06-29 16:31 | Inpatient (IN) | payer MEDICARE, OTHER ==
[~2020-06-29] VITALS: Ht 165.1 cm; Wt 113.4 kg
[~2020-06-29 16:31] MED LIST changes: -BISA10SU11 RC; +HEPA100D33 SQ; +LAMO100T2 PO; +LITH300C4 PO; +LORA-259 PO; +MAG-55 PO; +MORP30TA59 PO; +POLY17PO4 PO; +RISP1TAB97 PO; +TRAZ-182 PO; -ZINC56.713 TP; +ZOLP5TAB8 PO
[2020-06-29] MEDS ORDERED: MAG30ORA PO (16:55)
[2020-06-29] MEDS ORDERED: HYDR1DIS2 IVP (16:55)
[2020-06-29] MEDS ORDERED: THERAHONEY GEL TD (16:55)
[2020-06-29] MEDS ORDERED: CLON0.5T PO (16:55)
[2020-06-29] MEDS ORDERED: RISP0.2515 PO ×2 (16:55)
[2020-06-29] MEDS ORDERED: ALLA266C2 TP (16:55)
[2020-06-29] MEDS ORDERED: NYST15PO4 TP (16:55)
[2020-06-29] MEDS ORDERED: ONDA4VIA52 IVP (16:55)
[2020-06-29] MEDS ORDERED: ENOX40DI SQ (16:55)
[2020-06-29] MEDS ORDERED: ACET650S11 RC (16:55)
[2020-06-29] MEDS ORDERED: BUPR-96 PO (16:55)
--- NOTE | 2020-06-29 17:50 | NUR ---
GPS OV RN - ADMISSION NOTE ADMITTED THIS 75 Y/O F FROM M/S FLOOR AFTER BEING MEDICALLY CLEARED BY PMD. PT IS AT 5250 FOR SAFETY AND STABILIZATION. UPON FACE TO FACE ASSESSMENT, PT IS A/OX 3-4, COOPERATIVE, DEPRESSED, PT HAVING SI/HI AT THIS TIME. PT ADVISED OF HOLD AND PROVIDED PTS RIGHT HANDBOOK AND GUIDE. NO CONTRABAND NOTED. SITTER AT THE BEDSIDE. VSS. DR OROPEZA CAME AT 1830 AND EVALUATED THE PT. Addendum: 06/30/20 at 1204 by BECKA STEVENS RN *DENIES SI/HI AT THIS TIME
[2020-06-29 18:00] VITALS: BP 118/58
--- NOTE | 2020-06-29 18:15 | NUR ---
gps cost estimator: notes left message to dr. gorman re: admission.
--- NOTE | 2020-06-29 18:30 | NUR ---
gps ov tie worker: notes dr. jesus here and says that pt will be his not dr. gorman. left message to dr. gorman via voice mail and informed him that this admission will be dr. jesus.
--- NOTE | 2020-06-29 18:38 | NUR ---
RN NOTE PATIENT IN BED. A/O X3. NO SOB NOTED. IN NO APPARENT DISTRESS. PT HAVING THOUGHTS OF KILLING HERSELF. DISORGANIZED. SITTER AT THE BEDSIDE. EMY PICC LINE, INTACT. GUNTER CATH, IN PLACE, DRAINING YELLOW URINE. SAFETY MEASURES MAINTAINED. BED IN LOWEST POSITION, BRAKES LOCKED. SIDE RAILS UP X2. CALL LIGHT WITHIN REACH. WILL ENDORSE CONTINUITY OF CARE TO ONCOMING SHIFT. Addendum: 06/29/20 at 1913 by BECKA STEVENS RN PATIENT DISCHARGED FROM [facility] AND TRANSFERRED TO [facility]. WAS PUT ON 5250 HOLD. PT WAS SEEN BY DR. OROPEZA. Addendum: 06/30/20 at 1205 by BECKA STEVENS RN *DENIES SI/HI AT THIS TIME
--- NOTE | 2020-06-29 19:00 | NUR ---
MS RN NOTE LAMOTIGRINE DUE AT 7 PM. MED NOT AVAILABLE IN THE [facility]. ENDORSED IT TO BERNICE SALAZAR.
[2020-06-29] MEDS ORDERED: ACETAMINOPHEN 650 MG/SUPP.RECT RC PRN (19:30)
--- NOTE | 2020-06-29 19:43 | NUR ---
RN NOTE TRIED TO CALL THE RELATIVE FOR AN UPDATE REGARDING THE TRANSFER OF THE PT. NO ONE IS ANSWERING. LEFT A VOICE MESSAGE.
[2020-06-29 20:00] VITALS: BP 137/70
--- NOTE | 2020-06-29 20:00 | NUR ---
GPS RN OPENING NOTE. RECIEVED PATIENT AWAKE IN BED WITH LIGHTS OFF. DENIES PAIN AT THIS TIME. IN NO APPARENT DISTRESS AT THIS TIME. BREATHING EVEN AND UNLABORED. PT IS ALERT PATIENT IN BED. A/O X3. NO IN NO APPARENT DISTRESS. PT DENIES SI/HI AT THIS TIME. THOUGHT PROCESS IS DISORGANIZED. SITTER GIDEON GARCIA AT THE BEDSIDE. EMY PICC LINE, INTACT. GUNTER CATH, IN PLACE, DRAINING YELLOW URINE. SAFETY MEASURES IN PLACE. BED IN LOWEST POSITION, BRAKES LOCKED. SIDE RAILS UP X2. CALL LIGHT WITHIN REACH. WILL CONT TO MONITOR.
[2020-06-29] MEDS: ENOXAPARIN SODIUM 40 MG/0.4 ML DISP.SYRIN SQ SCH (20:42)
[2020-06-29] MEDS: LITHIUM CARBONATE 150 MG CAPSULE PO SCH (20:42)
[2020-06-29] MEDS: clonazePAM 0.5 MG TABLET PO SCH (20:43)
[2020-06-29] MEDS: LamoTRIgine 25 MG TABLET PO SCH (20:43)
[2020-06-29] MEDS: risperiDONE 1 MG TABLET PO SCH (20:46)
--- NOTE | 2020-06-29 20:47 | NUR ---
pt complaining of generalized pain rated 6/10 . no orders present for pain medication. contacted jonathan larios ccnp states he will place an order.
[2020-06-29] MEDS: HYDROCODONE/APAP 5/325MG TABLET PO PRN (21:02)
--- NOTE | 2020-06-29 21:22 | NUR ---
CALL MADE TO DR. OROPEZA PT REQUESTING SLEEPING MEDICAITON TO TAKE LATER. NEW ORDER FOR AMBIEN 5MG PO HS PRN RECIEVED.
[2020-06-29] MEDS: ZOLPIDEM TARTRATE 5 MG TABLET PO PRN (22:47)
--- NOTE | 2020-06-30 07:40 | NUR ---
GPS RN OPENING NOTE RECEIVED PATIENT AWAKE IN BED, A/O X3. ABLE TO FOLLOW SIMPLE COMMANDS. NO SOB NOTED. IN NO APPARENT DISTRESS. BREATHING IS EVEN AND UNLABORED. PT IS HAVING SI/HI AT THIS TIME. PT REMAINS CALM AND COOPERATIVE. SITTER AT THE BEDSIDE. BED IN LOWEST LOCKED POSITION, HOB ELEVATED, SIDE RAILS UPX2. CALL LIGHT WITHIN REACH. WILL CONTINUE TO MONITOR Q 15 MIN FOR SAFETY, MOOD & BEHAVIOR.
[2020-06-30 08:00] VITALS: BP 134/68
[2020-06-30] MEDS: risperiDONE 1 MG TABLET PO SCH ×2 (08:45→20:33)
[2020-06-30] MEDS: LITHIUM CARBONATE 150 MG CAPSULE PO SCH ×2 (08:46→20:32)
[2020-06-30] MEDS: BUPROPION XL 150 MG TAB.ER.24 PO SCH (08:46)
[2020-06-30] MEDS: clonazePAM 0.5 MG TABLET PO SCH ×3 (08:46→20:32)
[2020-06-30] MEDS: LamoTRIgine 25 MG TABLET PO SCH (08:46)
[2020-06-30] MEDS: PANTOPRAZOLE 40 MG TABLET.DR PO SCH (08:46)
[2020-06-30] MEDS: HYDROCODONE/APAP 5/325MG TABLET PO PRN ×2 (08:51→20:59)
[2020-06-30] MEDS ORDERED: NYSTATIN TOP POWDER 15 GM BOTTLE TP SCH (09:00)
--- NOTE | 2020-06-30 12:25 | NUR ---
Case Management Contact: SW spoke to assistant case manager Viri who stated that the pt was accepted to [facility].
[2020-06-30] MEDS ORDERED: ONDANSETRON 4 MG TAB.RAPDIS PO PRN (14:00)
[2020-06-30] MEDS: MAG HYDROX/AL HYDROX/SIMETH 30 ML UDC PO PRN (14:13)
--- NOTE | 2020-06-30 14:30 | NUR ---
Individual Intervention: SW met with the pt at bedside and conducted her psychosocial assessment. Pt states that for her discharge plan she wants to be able to be with her who is currently in a different facility called [facility]. Per pt, she is in a lot of pain and wants to be discharged soon.
--- NOTE | 2020-06-30 15:50 | NUR ---
SNF Contact: NANNETTE contacted Nori from [facility] and she confirmed that the pt was accepted to their facility.
[2020-06-30 16:00] VITALS: BP 141/77
[2020-06-30] MEDS: NYSTATIN TOP POWDER 15 GM BOTTLE TP SCH (17:31)
--- NOTE | 2020-06-30 19:02 | NUR ---
GPS RN CLOSING NOTE PATIENT RESTING IN BED, A/O X3. NO SOB NOTED. IN NO APPARENT DISTRESS. BREATHING IS EVEN AND UNLABORED. PT STILL HAVING THOUGHTS OF SI/HI AT THIS TIME. PT REMAINS CALM AND COOPERATIVE, MED COMPLIANT. SITTER AT THE BEDSIDE. SEEN BY PIT SUPERVISOR TODAY. ALL NEEDS HAVE BEEN MET. ROUTINE MEDS WERE GIVEN ORDERED. BED IN LOWEST LOCKED POSITION, HOB ELEVATED, SIDE RAILS UPX2. CALL LIGHT WITHIN REACH. WILL CONTINUE TO MONITOR Q 15 MIN FOR SAFETY, MOOD & BEHAVIOR. WILL ENDORSE CONTINUITY OF CARE TO ONCOMING SHIFT.
[2020-06-30 20:00] VITALS: BP 124/75
--- NOTE | 2020-06-30 20:28 | NUR ---
RECEIVED IN BED SITTER AT HER BEDSIDE. PATIENT ASLEEP AWAKENED WHEN NAME SPOKEN AND RIGHT ARM TOUCHED
[2020-06-30] MEDS: ENOXAPARIN SODIUM 40 MG/0.4 ML DISP.SYRIN SQ SCH (20:34)
[2020-06-30] MEDS: ZOLPIDEM TARTRATE 5 MG TABLET PO PRN (22:59)
--- NOTE | 2020-07-01 05:12 | NUR ---
ENDING NOTES... SITTER AT THE BEDSIDE. PATIENT WILL VERBALIZE HER NEEDS SLEPT 10 HOURS OF THE THIS 12 HOUR SHIFT. SHE AROUSES EASILY WHEN NAME SPOKEN. SWALLOWS W/O PROBLEMS NO SUICIDAL THOUGHT SPOKEN THIS 12 HOURS. MD OROPEZA WAS HERE AT THE BEGINNING OF THE SHIFT 7PM TO SEE PATIENT. PATIENT IS DIFFICULT TO CONVINCE TO BE CLEANED AND REPOSITIONED. EXPLAINED TO HER SHE W HAS A WOUND ON HER BACK SIDE, SHE STATED "I KNOW". SHE IS ALERT AND ORIENTATED X4.
[2020-07-01] MEDS: HYDROCODONE/APAP 5/325MG TABLET PO PRN ×2 (05:32→17:44)
--- NOTE | 2020-07-01 07:52 | NUR ---
GPS OVERFLOW RN NOTES RECEIVED PATIENT FOR GIULIANA IN MEDICALLY STABLE CONDITION. WILL CONTINUE TO MONITOR PATIENT.
[2020-07-01 08:24] VITALS: BP 123/73
[2020-07-01] MEDS: NYSTATIN TOP POWDER 15 GM BOTTLE TP SCH ×2 (08:37→16:09)
[2020-07-01] MEDS: BUPROPION XL 150 MG TAB.ER.24 PO SCH (08:41)
[2020-07-01] MEDS: clonazePAM 0.5 MG TABLET PO SCH ×3 (08:41→20:25)
[2020-07-01] MEDS: PANTOPRAZOLE 40 MG TABLET.DR PO SCH (08:42)
[2020-07-01] MEDS: LITHIUM CARBONATE 150 MG CAPSULE PO SCH ×2 (08:42→20:25)
[2020-07-01] MEDS: LamoTRIgine 25 MG TABLET PO SCH (08:42)
[2020-07-01] MEDS: risperiDONE 1 MG TABLET PO SCH ×2 (08:43→20:25)
--- NOTE | 2020-07-01 10:59 | NUR ---
Probable Cause Hearing: Pts [phone] hold was upheld for grave disability.
--- NOTE | 2020-07-01 15:48 | NUR ---
Initial Discharge Plan: Pt currently resides at [facility] located at [address] [place] [address]; . Per pt, she would like to be discharged to an alternate placement. NANNETTE will work with the MD and the pt regarding appropriate discharge planning. SW will form a safe and proper discharge.
[2020-07-01 15:52] VITALS: BP 105/76
[2020-07-01] MEDS ORDERED: FLUCONAZOLE (100 MG) 100 MG TABLET PO ONE (17:00)
--- NOTE | 2020-07-01 17:45 | NUR ---
GPS RN OVERFLOW RN NOTES PATIENT COMPLAINING OF GENERALIZED PAIN 6 OUT OF 10 AND REQUESTING NORCO. PRN NORCO ADMINISTERED. WILL REASSESS.
--- NOTE | 2020-07-01 18:44 | NUR ---
GPS RN OVERFLOW RN CLOSING NOTES PATIENT RESTING COMFORTABLY IN BED, AWAKE, A/O X4. PATIENT BREATHING ON ROOM AIR; BREATHING EVEN AND UNLABORED. PAIN TREATED WITH PRN MEDICATIONS PER MD ORDER. EMY PICC LINE PRESENT AND INTACT; SL. GUNTER CATH IN PLACE AND DRAINING CLEAR YELLOW URINE WITH A DAILY OUTPUT OF 1500 MLS. DRESSING CHANGED; PATIENT CLEAN AND DRY. ALL NEEDS ATTENDED THROUGHOUT THE DAY. SAFETY PRECAUTIONS IN PLACE; BED IN LOW POSITION AND LOCKED, RAILS UP X2, CALL LIGHT WITHIN REACH. WILL ENDORSE TO CLINICAL SPECIALIST VASCULAR NURSE.
--- NOTE | 2020-07-01 19:26 | NUR ---
RN NOTES PATIENT RESTING COMFORTABLY IN BED, AWAKE, A/O X4. PATIENT BREATHING ON ROOM AIR; BREATHING EVEN AND UNLABORED. EMY PICC LINE PRESENT AND INTACT; SL. PT PULLED OUT GUNTER CATHETER STATED "IT FELT UNCOMFORTABLE TO I PULLED IT OUT" RN EXPLAINED TO PT THAT THE GUNTER SHOULD BE REINSERTED PT REFUSED X3 RISK AND BENEFITS EXPLAINED X3 PT STATED " I DON'T WANT YOU TO DO IT TONIGHT I WANT THEM TO DO IT TOMORROW IN THE MORNING". PATIENT CLEAN AND DRY. ALL NEEDS MET AT THIS TIME. SAFETY PRECAUTIONS IN PLACE; BED IN LOW POSITION AND LOCKED, RAILS UP X2, CALL LIGHT WITHIN REACH. WILL CONTINUE TO MONITOR.
[2020-07-01 20:00] VITALS: BP 118/67
[2020-07-01] MEDS: ENOXAPARIN SODIUM 40 MG/0.4 ML DISP.SYRIN SQ SCH (20:32)
[2020-07-01] MEDS: ZOLPIDEM TARTRATE 5 MG TABLET PO PRN (22:59)
[2020-07-02] MEDS: HYDROCODONE/APAP 5/325MG TABLET PO PRN ×2 (02:14→11:31)
--- NOTE | 2020-07-02 03:27 | NUR ---
RN NOTES PT IS STILL REFUSING GUNTER REINSERTION X3 RISK AND BENEFITS EXPLAINED X3 WILL ATTEMPT AGAIN LATER IN THE MORNING WOUND DRESSING CHANGED AT THIS TIME.
--- NOTE | 2020-07-02 06:59 | NUR ---
RN NOTES PATIENT RESTING COMFORTABLY IN BED, AWAKE, A/O X4. PATIENT BREATHING ON ROOM AIR; BREATHING EVEN AND UNLABORED. EMY PICC LINE PRESENT AND INTACT; SL. PT PULLED OUT GUNTER CATHETER STATED "IT FELT UNCOMFORTABLE TO I PULLED IT OUT" RN EXPLAINED TO PT THAT THE GUNTER SHOULD BE REINSERTED PT REFUSED X3 RISK AND BENEFITS EXPLAINED X3 WILL ENDORSE TO DAY SHIFT. PATIENT CLEAN AND DRY. ALL NEEDS MET AT THIS TIME. SAFETY PRECAUTIONS IN PLACE; BED IN LOW POSITION AND LOCKED, RAILS UP X2, CALL LIGHT WITHIN REACH. WILL ENDORSE CARE TO DAY SHIFT NURSE.
[2020-07-02 08:00] VITALS: BP 120/75
--- NOTE | 2020-07-02 08:01 | NUR ---
GPS OVERFLOW RN OPENING NOTE PT RECEIVED IN BED, SLEEPING BUT AROUSABLE AND RESPONSIVE. PT IS A/O X 4, VERBAL AND HAS NO C/O PAIN AT THIS TIME. PT HAS NO SUICIDAL IDEATION OR HOMICIDAL IDEATION AT THIS TIME. PT HAS A 1:1 SITTER AT BEDSIDE. PT REMAINS CALM AND COOPERATIVE AT THIS TIME, AND HAS NO S/SX OF ACUTE PHYSIOLOGICAL OR PSYCHOLOGICAL DISTRESS. PT IS ON ROOM AIR WITH NO S/SX OF RESPIRATORY DISTRESS OR SOB AT THIS TIME. IV ACCES IS ON RIGHT ARM PICC LINE, PATENT, INTACT AND FLUSHING WELL WITH NO S/SX OF INFECTION, IRRITATION OR INFILTRATION. SAFETY MEASURES IN PLACE: BED IN LOWEST, LOCKED POSITION WITH BOTH UPPER SIDE RAILS UP X 2. CALL LIGHT PLACED WITHIN REACH. WILL CONTINUE TO MONITOR.
[2020-07-02] MEDS: PANTOPRAZOLE 40 MG TABLET.DR PO SCH (08:22)
[2020-07-02] MEDS: LamoTRIgine 25 MG TABLET PO SCH (08:45)
[2020-07-02] MEDS: BUPROPION XL 150 MG TAB.ER.24 PO SCH (08:45)
[2020-07-02] MEDS: LITHIUM CARBONATE 150 MG CAPSULE PO SCH ×2 (08:45→20:58)
[2020-07-02] MEDS: clonazePAM 0.5 MG TABLET PO SCH ×3 (08:45→21:09)
[2020-07-02] MEDS: risperiDONE 1 MG TABLET PO SCH ×2 (08:46→20:58)
[2020-07-02] MEDS: NYSTATIN TOP POWDER 15 GM BOTTLE TP SCH (08:46)
[2020-07-02] MEDS: MAG HYDROX/AL HYDROX/SIMETH 30 ML UDC PO PRN ×2 (09:44→20:57)
--- NOTE | 2020-07-02 09:48 | NUR ---
GPS OVERFLOW RN NOTE PT C/O STOMACH UPSET. MAALOX 30ML PO Q6H PRN GIVEN ORDERED PER PT'S REQUEST AT 09:44AM. WILL CONTINUE TO MONITOR.
--- NOTE | 2020-07-02 11:35 | NUR ---
GPS OVERFLOW RN NOTE PT C/O BURNING ITCHING PAIN IN GROIN AREA RATED 10/10. NORCO 5-325 1 TAB PO Q6H PRN GIVEN ORDERED PER PT'S REQUEST AT 11:31AM. WILL CONTINUE TO MONITOR.
[2020-07-02 16:00] VITALS: BP 123/62
--- NOTE | 2020-07-02 18:19 | NUR ---
GPS OVERFLOW RN CLOSING NOTE PT REMAINS IN BED, SLEEPY BUT AROUSABLE AND RESPONSIVE. PT IS A/O X 2-3, BUT IS VERBAL AND ABLE TO MAKE NEEDS KNOWN. NO C/O PAIN OR S/SX OF ACUTE DISTRESS AT THIS TIME. PT DENIES ANY SI/HI. PT IS ON ROOM AIR WITH NO S/SX OF RESPIRATORY DISTRESS OR SOB. IV ACCESS ON RIGHT ARM PICC LINE SL IS PATENT, INTACT AND FLUSHING WELL WITH NO S/SX OF INFECTION, INFILTRATION OR IRRITATION. ALL CARE, NEEDS, MEDICATIONS AND TREATMENTS GIVEN ORDERED. SAFETY MEASURES MAINTAINED: BED IS IN LOWEST POSITION AND LOCKED WITH BOTH UPPER SIDE RAILS UP X 2. CALL LIGHT PLACED WITHIN REACH. PT HAS A 1:1 SITTER AT BEDSIDE. WILL ENDORSE TO AIRPLANE PILOT PHOTOGRAMMETRY NURSE.
[2020-07-02 20:00] VITALS: BP 131/70
--- NOTE | 2020-07-02 20:00 | NUR ---
RN NOTES Received pt. awake in bed, sitter at bedside, a/ox2, not in distress, denies pain, call light within reach, siderailsupx2, will continue to monitor
[2020-07-02] MEDS: ENOXAPARIN SODIUM 40 MG/0.4 ML DISP.SYRIN SQ SCH (20:59)
[2020-07-02 21:06] LABS: BASOPHILS % (AUTO) 0.4 % (0.0-2.0); EOSINOPHILS % (AUTO) 7.3 % (0.0-6.0); HEMATOCRIT 37 % (33-45); HEMOGLOBIN 11.8 g/dL (11.5-14.8); LYMPHOCYTES # (AUTO) 1.8 /CMM (0.8-4.8); LYMPHOCYTES % (AUTO) 25.7 % (20.0-44.0); MEAN CORPUSCULAR HGB CONC 32 g/dl (31.0-36.0); MEAN CORPUSCULAR VOLUME 80 fL (82-100); MONOCYTES # (AUTO) 0.5 /CMM (0.1-1.30); MONOCYTES % (AUTO) 7.5 % (2.0-12.0); NEUTROPHILS # (AUTO) 4.2 /CMM (1.8-8.9); NEUTROPHILS % (AUTO) 59.1 % (43.0-81.0); PLATELET COUNT (AUTO) 294 /CMM (150-450); RED BLOOD CELL COUNT(AUTO) 4.63 MIL/uL (4.0-5.2); WHITE BLOOD COUNT (AUTO) 7.2 K/uL (4.3-11.0)
[2020-07-02 21:12] LABS: ALBUMIN 1.8 g/dL (3.4-5.0); BILIRUBIN,TOTAL 0.3 mg/dL (0.2-1.0); CALCIUM, SERUM 9.2 mg/dL (8.5-10.1); CREATININE 1.2 mg/dL (0.6-1.3); POTASSIUM 3.3 mmol/L (3.5-5.1); TOTAL PROTEIN, SERUM 6.8 g/dL (6.4-8.2)
[2020-07-02] MEDS ORDERED: MICONAZOLE NITRATE 2% CREAM 1 EA TUBE TP SCH (22:00)
--- NOTE | 2020-07-03 06:36 | NUR ---
RN NOTES SLEEPING BUT AROUSABLE, NOT IN DISTRESS, NO PAIN NOTED, MORNING CARE RENDERED, SIDERAILSUPX2, . PT. NEEDS ATTENDED
[2020-07-03 06:59] LABS: BASOPHILS # (AUTO) 0.1 /CMM (0.0-0.2); BASOPHILS % (AUTO) 1.2 % (0.0-2.0); HEMATOCRIT 37 % (33-45); LYMPHOCYTES # (AUTO) 1.5 /CMM (0.8-4.8); LYMPHOCYTES % (AUTO) 20.6 % (20.0-44.0); MEAN CORPUSCULAR HGB CONC 33 g/dl (31.0-36.0); MEAN CORPUSCULAR VOLUME 79 fL (82-100); MONOCYTES # (AUTO) 0.6 /CMM (0.1-1.30); MONOCYTES % (AUTO) 8.1 % (2.0-12.0); NEUTROPHILS # (AUTO) 4.5 /CMM (1.8-8.9); NEUTROPHILS % (AUTO) 63.1 % (43.0-81.0); PLATELET COUNT (AUTO) 302 /CMM (150-450); RED BLOOD CELL COUNT(AUTO) 4.69 MIL/uL (4.0-5.2); WHITE BLOOD COUNT (AUTO) 7.1 K/uL (4.3-11.0)
[2020-07-03 07:11] LABS: CALCIUM, SERUM 9.9 mg/dL (8.5-10.1); CREATININE 1.2 mg/dL (0.6-1.3); POTASSIUM 3.9 mmol/L (3.5-5.1)
--- NOTE | 2020-07-03 07:49 | NUR ---
MS/RN OPENING NOTE RECEIVED PATIENT FROM ENVIRONMENTAL TECH NURSE. PATIENT AWAKE LAYING IN HOSPITAL BED. A/O X3 PATIENT, DENIES AND PAIN AT THE MOMENT, NO ACUTE DISTRESS NOTED. PATIENT ON ROOM AIR, NO SOB NOTED, BREATHING EVEN, NON LABORED. SAFETY MEASURES IN PLACE, SITTER AT BEDSIDE. BED LOCKED AND IN LOWEST POSITION, CALL LIGHT WITHIN REACH. WILL CONTINUE TO MONITOR AND ENSURE SAFETY.
[2020-07-03] MEDS: LITHIUM CARBONATE 150 MG CAPSULE PO SCH (08:20)
[2020-07-03] MEDS: BUPROPION XL 150 MG TAB.ER.24 PO SCH (08:20)
[2020-07-03] MEDS: clonazePAM 0.5 MG TABLET PO SCH ×2 (08:20→15:21)
[2020-07-03] MEDS: risperiDONE 1 MG TABLET PO SCH (08:20)
[2020-07-03] MEDS: LamoTRIgine 25 MG TABLET PO SCH (08:20)
[2020-07-03] MEDS: PANTOPRAZOLE 40 MG TABLET.DR PO SCH (08:20)
[2020-07-03] MEDS: HYDROCODONE/APAP 5/325MG TABLET PO PRN (11:02)
--- NOTE | 2020-07-03 14:05 | NUR ---
Individual Intervention: SW met with the pt at bedside and informed her that her is in the process of being transferred to the facility as well. Pt stated that she wanted to be in the same place and that she was feeling happy but she wanted to make sure that her doctors think that she is stable for discharge.
--- NOTE | 2020-07-03 16:04 | NUR ---
Discharge Note: Pt will be discharged to [facility] SNF located at [address] [place] [address]; . Pt will be discharged via [facility] at 6PM. There was no one to notify about this pts discharge as does not have the pts phone number. Upon discharge, the pt appears to be in a euthymic mood and presents with a calm affect. Pt denies both suicidal and homicidal ideation as well as auditory and visual hallucinations. Pt appears to be alert and oriented x4 (time, place, self and situation). Pt appears to be ungroomed and disheveled. Pt presents as bed bound. Pt will be under the care of her psychiatrist, Dr. Fry, located at [address] [place] [address]; and his high school admissions representative, Dr. Velez, located at [address] [facility], [place] [address]; . The choice of vendor form and multidisciplinary exit care form were done, printed, signed, and given to the patient.
--- NOTE | 2020-07-03 18:50 | NUR ---
MS/RN CLOSING NOTE PATIENT AWAKE LAYING IN HOSPITAL BED. A/O X2-3 PATIENT, DENIES AND PAIN AT THE MOMENT, NO ACUTE DISTRESS NOTED. PATIENT ON ROOM AIR, NO SOB NOTED, BREATHING EVEN, NON LABORED. SAFETY MEASURES IN PLACE, SITTER AT BEDSIDE. BED LOCKED AND IN LOWEST POSITION, CALL LIGHT WITHIN REACH. WILL ENDORSE TO BLOCK FEEDER NURSE.
--- NOTE | 2020-07-03 19:30 | NUR ---
GPS OVERFLOW/ MS RN OPENING NOTE received patient in bed. a/ox3. tolerating room air. respirations are even and unlabored. no s/s sob noted. no c/o pain at this time. in no apparent distress. iv access in margi picc line patent and saline locked. no si/ hi at this time. sitter at bed side. mood is appropriate, calm, cooperative. bed is low and locked, hob elevated in semi fowlers, side rails up x3, call light within reach. specialty mattress. informed patient of discharge and that i will remove iv, take photos, sign belongings list. will continue to monitor patient until discharge
--- NOTE | 2020-07-03 20:45 | NUR ---
GPS OVERFLOW/ MS DISCHARGE NOTE PATIENT IS BEING DISCHARGED TO [facility]. A/OX3. TOLERATING ROOM AIR. RESPIRATIONS ARE EVEN AND UNLABORED. NO S/S SOB NOTED. NO C/O PAIN AT THIS TIME. IN NO APPARENT DISTRESS. REMOVED EMY PICC LINE. SITTER AT BEDSIDE NO SI/HI AT THIS TIME. PATIENT BELONGING LIST SIGNED. WAS NOT ABLE TO FIND PATIENTS SOCKS, PATIENT OK WITH LEAVING WITHOUT PERSONAL SOCKS, SHE DOES HAVE HOSPITAL SOCKS ON AND WAS OK WITH THAT. REPORT GIVEN TO FACILITY PER DAY SHIFT RN. DISCHARGE PAPERS GIVEN. PATIENT LEFT IN STABLE CONDITION.
[2020-07-03] MEDS ORDERED: TRAZODONE 50 MG TABLET PO SCH (22:00)
[2020-07-04] MEDS ORDERED: LamoTRIgine 100 MG TABLET PO SCH (09:00)
== END 2020-07-03 20:45 | DRG 885 ==
LOC: GPSOV 16:31
PROVIDERS: ADMIT Psychiatry & Neurology Psychiatry; ATTEND Nurse Practitioner Acute Care
DX: F31.5 Bipolar disorder, current episode depressed, severe, with psychotic features (principal); N17.9 Acute kidney failure, unspecified; R53.2 Functional quadriplegia; L89.154 Pressure ulcer of sacral region, stage 4; K57.00 Diverticulitis of small intestine with perforation and abscess without bleeding; E87.1 Hypo-osmolality and hyponatremia; E44.0 Moderate protein-calorie malnutrition; Z68.41 Body mass index [BMI] 40.0-44.9, adult; N13.30 Unspecified hydronephrosis; E86.1 Hypovolemia; F60.3 Borderline personality disorder; G47.00 Insomnia, unspecified; Z90.49 Acquired absence of other specified parts of digestive tract; F29 Unspecified psychosis not due to a substance or known physiological condition; Z73.6 Limitation of activities due to disability; M51.36 Other intervertebral disc degeneration, lumbar region; K59.00 Constipation, unspecified; E88.09 Other disorders of plasma-protein metabolism, not elsewhere classified; Z20.822 Contact with and (suspected) exposure to COVID-19; E87.6 Hypokalemia; G62.9 Polyneuropathy, unspecified; L30.4 Erythema intertrigo; F39 Unspecified mood [affective] disorder; M19.90 Unspecified osteoarthritis, unspecified site; G89.29 Other chronic pain; I10 Essential (primary) hypertension; K21.9 Gastro-esophageal reflux disease without esophagitis; M62.81 Muscle weakness (generalized)
CPT/HCPCS: 36415; 80048-TC; 80053-TC; 85025-TC; A6253; J1650; Q0162

== ENCOUNTER 2021-07-02 19:44 | Inpatient (IN) | payer MEDICARE, OTHER ==
[~2021-07-02] VITALS: Ht 162.6 cm; Wt 132.0 kg
[~2021-07-02 19:44] MED LIST changes: -ACET325T53 PO; +ACET650S11 RC; +ALLA266C2 TP; -ASCO500T10 PO; -ASPI-1169 PO; +BUPR-96 PO; -BUPR150T12 PO; +CLON0.5T PO; -DOCU-141 PO; +ENOX40DI SQ; -GABA300C PO; -HEPA100D33 SQ; +HYDR1DIS2 IVP; -LAMO100T2 PO; -LORA-259 PO; -MAG-55 PO; +MAG30ORA PO; -MORP30TA59 PO; -MULT-439 PO; +NYST15PO4 TP; -ONDA4TAB5 PO; +ONDA4VIA52 IVP; -POLY17PO4 PO; +RISP0.2515 PO; -RISP1TAB97 PO; +THERAHONEY GEL TD; -TRAM50TA2 PO; -TRAZ-182 PO; -ZINC50TA69 PO; -ZOLP5TAB8 PO
[2021-07-02 21:07] LABS: BASOPHILS # (AUTO) 0.1 K/uL (0.0-0.2); BASOPHILS % (AUTO) 0.8 % (0.0-2.0); EOSINOPHILS % (AUTO) 3.4 % (0.0-6.0); HEMATOCRIT 38 % (33-45); HEMOGLOBIN 11.8 g/dL (11.5-14.8); LYMPHOCYTES # (AUTO) 1.8 K/uL (0.8-4.8); MEAN CORPUSCULAR HGB CONC 31 g/dl (31.0-36.0); MEAN CORPUSCULAR VOLUME 78 fL (82-100); MONOCYTES # (AUTO) 0.6 K/uL (0.1-1.30); MONOCYTES % (AUTO) 7.5 % (2.0-12.0); NEUTROPHILS # (AUTO) 5.3 K/uL (1.8-8.9); NEUTROPHILS % (AUTO) 66.3 % (43.0-81.0); PLATELET COUNT (AUTO) 290 K/uL (150-450); RED BLOOD CELL COUNT(AUTO) 4.85 MIL/uL (4.0-5.2)
--- NOTE | 2021-07-02 21:15 | NUR ---
GLO FROM [facility]. TO ER BED 13. AAOX4. NOT IN RESO DISTRESS. BROUGHT IN FOR SUICIDAL ATEMPT BY PUTTING A PLASTIC BAG OVER HER HEAD. STAFF AT THE SNF FOUND THE PT WITH THE BAG OVER HER HEAD. PT IS IN GOWN. SITTER AT BEDSIDE. WAS AT BEDSIDE FOR EVAL.
[2021-07-02 21:44] LABS: BILIRUBIN,URINE NEGATIVE (NEGATIVE); COLOR,URINE YELLOW (YELLOW); LEUKOCYTE ESTERASE ,URINE LARGE (NEGATIVE); NITRITE, URINE POSITIVE (NEGATIVE); PROTEIN,URINE NEGATIVE (NEGATIVE); UGLUCOSE NEGATIVE (NEGATIVE); UROBILINOGEN,URINE 0.2 EU/dL (0.2)
[2021-07-02 21:47] LABS: BACTERIA,URINE 2+ /HPF (None Seen); SQUAMOUS EPITHELIAL CELL,UR 0-2 /HPF (None Seen); WBC,URINE 81-100 /HPF (0-3)
[2021-07-02 23:03] LABS: CARBON DIOXIDE 17 mmol/L (21-32); CHLORIDE 108 mmol/L (98-107); SODIUM SERUM 142 mmol/L (136-145)
[2021-07-02] MEDS: CEPHALEXIN MONOHYDRATE 500 MG CAPSULE PO SCH ×2 (23:07→23:11)
[2021-07-02 23:10] LABS: CREATININE 1.6 mg/dL (0.6-1.3); GLUCOSE 115 mg/dL (74-106); UREA NITROGEN, BLOOD 25 mg/dL (7-18)
--- NOTE | 2021-07-02 23:45 | NUR ---
VIDA, MATERIAL CUTTER PAGED
[2021-07-03] MEDS ORDERED: ACETAMINOPHEN 325 MG TABLET ONE (00:14)
[2021-07-03] MEDS ORDERED: ACETAMINOPHEN 325 MG TABLET PO ONE (00:30)
[2021-07-03] MEDS ORDERED: LORAZEPAM 1 MG TABLET ONE (00:49)
[2021-07-03] MEDS ORDERED: LORAZEPAM 1 MG TABLET PO ONE (01:00)
[2021-07-03] MEDS ORDERED: LORAZEPAM INJ 2 MG/ML VIAL IM ONE (01:00)
--- NOTE | 2021-07-03 01:01 | NUR ---
PT ON 3280 HOLD
--- NOTE | 2021-07-03 01:34 | NUR ---
REPORT GIVEN TO TIMO FOR GIULIANA
--- NOTE | 2021-07-03 02:20 | NUR ---
PT TO [facility] WITH EMT AT BEDSIDE ON STABLE CONDITION.
--- NOTE | 2021-07-03 02:23 | NUR ---
GPS RN NOTE, PATIENT NEEDS A MEDICATION RECONCILIATION. PAGED [facility] AND INFORMED NA JENKINS DNP OF MY FINDINGS. NA JENKINS DNP SAID SHE WILL DO THE MED RECON WHEN SHE HAS A MOMENT. ALL ORDERS NOTED AND CARRIED OUT. WILL CONTINUE TO MONITOR THIS PATIENT WITH THE HELP OF STAFF.
[2021-07-03] MEDS: TEMAZEPAM 15 MG CAPSULE PO PRN ×2 (02:30→23:49)
[2021-07-03] MEDS ORDERED: MAGNESIUM HYDROXIDE 30 ML UDC PO PRN (02:30)
[2021-07-03] MEDS ORDERED: BLOOD SUGAR DIAGNOSTIC 1 EACH STRIP IN ONE (02:30)
--- NOTE | 2021-07-03 02:32 | NUR ---
RN NOTES: INSOMNIA PT. C/O UNABLE TO SLEEP RESTORIL 15 MG PO GIVEN PER PT. REQUEST, WILL CONTINUE TO MONITOR.
--- NOTE | 2021-07-03 02:55 | NUR ---
RN NOTES: REFUSED SKIN ASSESSMENT PT. REFUSED SKIN ASSESSMENT, PER PT. MY SKIN IS FINE , I AM TIRED WANT TO SLEEP,PT. BEHAVIOR UNCOOERTIVE ,EASILY AGITAED AT THIS TIME . ENCOURAGED BUT PT. STRONGLY REFUSED.
[2021-07-03 03:01] VITALS: BP 126/65
[2021-07-03 03:08] VITALS: BP 126/65
--- NOTE | 2021-07-03 04:40 | NUR ---
ADMISSION NOTES: ADMITTED THIS 76Y/O FEMALE PATIENT ADMIT FROM [facility] ER/ [facility], ADMITTED TO GPS ON 5150 HOLD, PER HOLD GD, DTS, , SI ATTEMPT AND INFORMED CLINICIAN THAT SHE DOES NOT WANT TO LIVE ANY MORE DUE TO FINDING OUT HER SON ,UPON FACE TO FACE ASSESSMENT PATIENT IS A&O X 2,3 , CONFUSED, DISORGNIZED, DISHELVED ,EASILY GETS AGITATED, DISORGNIZED , DENIES SI /HI AT THIS TIME, PT. IS POOR HISTORIAN, POOR INSIGHT ,POOR JUDGEMENT , BOTH MD AWARE AND NOTIFIED OF THE ADMISSION, BELONGINGS CONTRABAND WERE DONE , PT. REFUSED TO SIGNS ADMISSION CONSENT PAPERS DUE TO MENTAL CONDITION / CONFUSED ,UNCOOPERTIVE ,ENCOURAGED , PT. RIGHTS DISCUSS BY DEPARTMENT SALES MANAGER , PROVIDE THE PT. WITH HANDBOOK, AND MEDICATIONS GUIDE, ENVIRONMENTAL SAFETY CHECK DONE, ENCOURAGED PT. VERBALIZED ANY FEELING CONCERN TO STAFF, ORIENT TO UNIT POLICY, NO ACUTE DISTRESS NOTED,VITAL SIGNS WNL ,DENIES ANY PAIN AT THIS TIME,WILL CONTINUE TO MONITOR FOR Q15 SAFETY AND BEHAVIOR.
[2021-07-03] MEDS ORDERED: ACETAMINOPHEN 650 MG/SUPP.RECT RC PRN (05:30)
[2021-07-03] MEDS ORDERED: Z GUARD REMEDY 4 OZ OINT TP PRN (06:30)
--- NOTE | 2021-07-03 06:51 | NUR ---
RN NOTES: NEXT OF KIN PLACED CALL CLIFTON FITZPATRICK AT THIS PHONE # , REGARDING ABOUT ADMISSION , LEFT MESSAGES.
[2021-07-03 08:00] VITALS: BP 161/83
[2021-07-03] MEDS: Z GUARD REMEDY 4 OZ OINT TP SCH (09:24)
[2021-07-03] MEDS: PANTOPRAZOLE 40 MG TABLET.DR PO SCH (09:24)
[2021-07-03] MEDS: ACETAMINOPHEN 325 MG TABLET PO PRN ×2 (09:25→18:00)
--- NOTE | 2021-07-03 09:25 | NUR ---
GIVEN TYLENOL FOR GENERALIZED PAIN.
[2021-07-03] MEDS: ENOXAPARIN SODIUM 30 MG/0.3 ML DISP.SYRIN SQ SCH (09:28)
--- NOTE | 2021-07-03 10:23 | NUR ---
GIVEN KLONOPIN FOR NERVES.
[2021-07-03] MEDS: clonazePAM 0.5 MG TABLET PO PRN ×3 (10:24→22:20)
[2021-07-03 12:20] LABS: ACETAMINOPHEN 0 ug/ml (10-30); ALANINE AMINOTRANSFERASE 19 U/L (12-78); ALBUMIN 3.1 g/dL (3.4-5.0); ALCOHOL, BLOOD 0 mg/dL (0-0); ASPARTATE AMINOTRANSFERASE 17 U/L (15-37); BILIRUBIN,TOTAL 0.2 mg/dL (0.2-1.0); CALCIUM, SERUM 9.4 mg/dL (8.5-10.1); TOTAL PROTEIN, SERUM 6.4 g/dL (6.4-8.2)
[2021-07-03] MEDS: buPROPion 100 MG TABLET PO SCH (12:40)
[2021-07-03] MEDS: HYDROCODONE/APAP 5/325MG TABLET PO PRN ×2 (13:45→15:38)
--- NOTE | 2021-07-03 13:45 | NUR ---
GIVEN NORCO FOR GENERALIZED ARTHRITIC PAIN.
[2021-07-03] MEDS: MAG HYDROX/AL HYDROX/SIMETH 30 ML UDC PO PRN ×2 (13:56→20:16)
--- NOTE | 2021-07-03 13:56 | NUR ---
GIVEN MAALOX FOR INDIGESTION.
[2021-07-03 13:57] LABS: ALKALINE PHOSPHATASE 88 U/L (46-116)
[2021-07-03 16:00] VITALS: BP 158/75
[2021-07-03] MEDS: CEPHALEXIN MONOHYDRATE 500 MG CAPSULE PO SCH (18:00)
--- NOTE | 2021-07-03 18:00 | NUR ---
GIVEN TYLENOL AND KLONOPIN.
--- NOTE | 2021-07-03 18:52 | NUR ---
COMMUNITY PLANNER LIGHT FREQ.AND DEMANDING AT TIMES.
[2021-07-03 20:19] VITALS: BP 146/73
--- NOTE | 2021-07-03 20:19 | NUR ---
RN NOTES : PT. C/O INDIGESTIONS PRN MAALOX 30 ML PO GIVEN , WILL CONTINUE TO MONITOR.
[2021-07-03 22:00] VITALS: BP 130/70
--- NOTE | 2021-07-03 23:50 | NUR ---
RN NOTES: INSOMNIA PT. C/O UNABLE TO SLEEP PRN RESTORIL 15 MG PO GIVEN PER PT. REQUEST, WILL CONTINUE TO MONITOR.
[2021-07-04] MEDS: MAG HYDROX/AL HYDROX/SIMETH 30 ML UDC PO PRN ×4 (03:41→18:52)
--- NOTE | 2021-07-04 03:42 | NUR ---
RN NOTES : PT. C/O INDIGESTION PRN MAALOX 30 ML PO GIVEN , WILL CONTINUE TO MONITOR.
[2021-07-04] MEDS: HYDROCODONE/APAP 5/325MG TABLET PO PRN ×3 (05:44→23:43)
--- NOTE | 2021-07-04 05:45 | NUR ---
RN NOTES : PT. C/O BACK PAIN 10/17 , NARCO 1 TAB GIVEN , PER PT. REQUEST WILL CONTINUE TO MONITOR.
[2021-07-04 08:00] VITALS: BP 162/84
[2021-07-04] MEDS: buPROPion 100 MG TABLET PO SCH (08:24)
[2021-07-04] MEDS: clonazePAM 0.5 MG TABLET PO PRN ×3 (08:24→19:49)
[2021-07-04] MEDS: PANTOPRAZOLE 40 MG TABLET.DR PO SCH (08:24)
[2021-07-04] MEDS: CEPHALEXIN MONOHYDRATE 500 MG CAPSULE PO SCH ×2 (08:29→17:00)
[2021-07-04] MEDS: ENOXAPARIN SODIUM 30 MG/0.3 ML DISP.SYRIN SQ SCH (08:30)
[2021-07-04] MEDS: Z GUARD REMEDY 4 OZ OINT TP SCH (09:34)
[2021-07-04] MEDS: QUETIAPINE FUMARATE 25 MG TABLET PO SCH ×2 (10:43→17:00)
--- NOTE | 2021-07-04 11:33 | NUR ---
RN-CO: PT REFUSED BLOOD WORKS, ENC SEVERAL TIMES BUT STILL REFUSED.
[2021-07-04] MEDS ORDERED: ARIPIPRAZOLE 2 MG TABLET PO SCH (12:00)
[2021-07-04] MEDS ORDERED: LORAZEPAM INJ 2 MG/ML VIAL IM ONE (15:30)
[2021-07-04 16:00] VITALS: BP 151/71
[2021-07-04 19:55] VITALS: BP 158/81
--- NOTE | 2021-07-04 21:30 | NUR ---
GPS RN NOTES PER COMPLAINT CLERK, THEY HAVE BEEN ATTEMPTING FOR BLOOD DRAW TODAY 4X, PATIENT CONSTANTLY REFUSING; PATIENT EDUCATED ON COMPLIANCE WITH TREATMENT PLAN, PATIENT STILL REFUSING LABS TO BE DRAWN, CHARGE NURSE MADE AWARE; WILL CONT TO MONITOR PATIENT
[2021-07-04] MEDS: TEMAZEPAM 15 MG CAPSULE PO PRN (22:20)
[2021-07-05] MEDS: clonazePAM 0.5 MG TABLET PO PRN ×3 (02:04→16:06)
--- NOTE | 2021-07-05 02:53 | NUR ---
GPS RN NOTES PATIENT VERY AGGRAVATED AND UPSET, YELLING AND CURSING AT STAFF AT THE TOP OF HER LUNGS, PATIENT REQUESTING TYLENOL BUT UNABLE TO ADMINISTER DUE TO PATIENT ALREADY RECEIVING KLONOPIN, PATIENT WAS MADE AWARE OF TIME FRAME AND PATIENT FRUSTRATED AND YELLING, SCREAMING AND DISRUPTING STAFF DESPITE ALL PRN MEDICATIONS GIVEN THROUGHOUT SHIFT; CHARGE NURSE MADE AWARE; WILL CONT TO MONITOR
[2021-07-05] MEDS: ACETAMINOPHEN 325 MG TABLET PO PRN (05:53)
--- NOTE | 2021-07-05 05:55 | NUR ---
GPS RN NOTES PATIENT AGITATED, REQUESTING TO GO TO EMERGENCY ROOM DUE TO STOMACH ISSUES/PAIN; PATIENT VERBALIZED SHE WOULD LIKE A CT SCAN DONE. PATIENT WAS EDUCATED ON TREATMENT PLAN AND REMINDED SHE IS ALREADY ADMITTED IN THE HOSPITAL; PATIENT WAS TOLD MD HAS TO ASSESS FIRST BEFORE PUTTING ANY ORDERS IN; PATIENT RECEIVED AROUND THE CLOCK PRN MEDICATION THROUGHOUT SHIFT AND WITH NO RELIEF OF DISTRESS; PATIENT VERY AGITATED IF NOT GIVEN MED OF CHOICE; PATIENT NEEDS CONSTANT RE-DIRECTION AND EDUCATION; PATIENT CONSTANTLY SHOUTING AND SCREAMING, VERY ATTENTION SEEKING, MANIPULATIVE AND VERY DEMANDING; PATIENT ALSO YELLING, "GIVE ME MY TYLENOL YOU FUCKING BITCH! GIVE ME MY TYLENOL AND THEN I CAN SHUT UP!" PATIENT DISRUPTING UNIT; OTHER PATIENTS ON UNIT HAVE VOICED THEIR FRUSTRATIONS WITH PATIENT'S CONSTANT SCREAMS FOR ATTENTION; CHARGE NURSE IS AWARE OF PATIENT BEHAVIOR
[2021-07-05 08:00] VITALS: BP 150/84
[2021-07-05] MEDS: buPROPion 100 MG TABLET PO SCH (08:08)
[2021-07-05] MEDS: ENOXAPARIN SODIUM 30 MG/0.3 ML DISP.SYRIN SQ SCH (08:08)
[2021-07-05] MEDS: PANTOPRAZOLE 40 MG TABLET.DR PO SCH (08:08)
[2021-07-05] MEDS: QUETIAPINE FUMARATE 100 MG TABLET PO SCH ×2 (08:08→16:02)
[2021-07-05] MEDS: CEPHALEXIN MONOHYDRATE 500 MG CAPSULE PO SCH ×2 (08:09→16:02)
--- NOTE | 2021-07-05 08:10 | NUR ---
KLONOPIN 0.5MG GIVEN FOR ANXIETY. WILL CONTINUE TO MONITOR.
[2021-07-05] MEDS: Z GUARD REMEDY 4 OZ OINT TP SCH (08:11)
[2021-07-05] MEDS: LITHIUM CARBONATE 150 MG CAPSULE PO SCH ×2 (09:14→21:26)
--- NOTE | 2021-07-05 10:00 | NUR ---
PT REFUSED CT ABDOMEN. STATING THAT SHE'LL DECIDE TOMORROW 07/06/21.
--- NOTE | 2021-07-05 10:36 | NUR ---
NANNETTE Initial Discharge Plan: Patient currently resides at [facility] [id number] [place] [address] ([phone]). NANNETTE spoke with Brody ([phone]) patcher who stated that pt is welcomed back upon dc. NANNETTE will work with the MD, treatment team, and pt to help coordinate appropriate discharge.
--- NOTE | 2021-07-05 10:37 | NUR ---
NANNETTE Admit Source: Patient was placed on a 5150 hold for danger to self and GD. Patient resides at [facility] and pt attempted to kill herself by putting a plastic bag over her head. Patient currently resides at [address] [address] ([phone]). NANNETTE spoke with Brody ([phone]) buckle frame shaper who stated that pt is welcomed back upon dc.
--- NOTE | 2021-07-05 10:40 | NUR ---
Person to Notify: SW contacted Nicole Rojas listed as person to notify ([phone]) and they stated that they do not know who this pt is and that this is the wrong number. Stated not to notify. SW notified charge nurse.
[2021-07-05 11:30] LABS: CALCIUM, SERUM 9.4 mg/dL (8.5-10.1); CARBON DIOXIDE 24 mmol/L (21-32); CHLORIDE 106 mmol/L (98-107); CREATININE 1.5 mg/dL (0.6-1.3); GLUCOSE 117 mg/dL (74-106); POTASSIUM 3.4 mmol/L (3.5-5.1); SODIUM SERUM 137 mmol/L (136-145); UREA NITROGEN, BLOOD 24 mg/dL (7-18)
[2021-07-05 11:32] LABS: BASOPHILS % (AUTO) 0.5 % (0.0-2.0); EOSINOPHILS % (AUTO) 1.4 % (0.0-6.0); HEMATOCRIT 38 % (33-45); HEMOGLOBIN 12.5 g/dL (11.5-14.8); LYMPHOCYTES # (AUTO) 1.5 K/uL (0.8-4.8); LYMPHOCYTES % (AUTO) 15.6 % (20.0-44.0); MEAN CORPUSCULAR HGB CONC 33 g/dl (31.0-36.0); MEAN CORPUSCULAR VOLUME 76 fL (82-100); MONOCYTES # (AUTO) 0.8 K/uL (0.1-1.30); MONOCYTES % (AUTO) 8.2 % (2.0-12.0); NEUTROPHILS % (AUTO) 74.3 % (43.0-81.0); PLATELET COUNT (AUTO) 298 K/uL (150-450); RED BLOOD CELL COUNT(AUTO) 5.05 MIL/uL (4.0-5.2); WHITE BLOOD COUNT (AUTO) 9.4 K/uL (4.3-11.0)
[2021-07-05] MEDS: MAG HYDROX/AL HYDROX/SIMETH 30 ML UDC PO PRN ×3 (11:36→20:04)
[2021-07-05] MEDS: HYDROCODONE/APAP 5/325MG TABLET PO PRN ×2 (11:36→18:36)
--- NOTE | 2021-07-05 11:37 | NUR ---
MAALOX GIVEN FOR INDIGESTION. WILL CONTINUE TO MONITOR.
--- NOTE | 2021-07-05 11:37 | NUR ---
NORCO 5-325 GIVEN FOR GENERALIZED PAIN. WILL CONTINUE TO MONITOR.
[2021-07-05 16:00] VITALS: BP 146/77
--- NOTE | 2021-07-05 16:02 | NUR ---
MAALOX GIVEN FOR INDIGESTION. WILL CONTINUE TO MONITOR.
--- NOTE | 2021-07-05 16:06 | NUR ---
KLONOPIN 0.5MG GIVEN FOR ANXIETY. WILL CONTINUE TO MONITOR.
--- NOTE | 2021-07-05 18:36 | NUR ---
NORCO 5-325 GIVEN FOR GENERALIZED PAIN. WILL CONTINUE TO MONITOR.
--- NOTE | 2021-07-05 20:06 | NUR ---
GPS RN NOTE: MAALOX GIVEN PATIENT C/O INDIGESTION AND WANTED TO TAKE MAALOX. PRN MAALOX 30 ML PRN ADMINISTERED.
[2021-07-05 20:25] VITALS: BP 151/87
[2021-07-05 20:40] VITALS: BP 151/87
[2021-07-05] MEDS: ZOLPIDEM TARTRATE 5 MG TABLET PO PRN (23:57)
--- NOTE | 2021-07-05 23:58 | NUR ---
GPS RN NOTE: INSOMNIA PATIENT C/O INABILITY TO SLEEP AT THIS TIME AND WANTED TO TAKE SLEEPING MEDICINE. PRN AMBIEN 5 MG PO ADMINISTERED. WILL CONTINUE TO MONITOR.
[2021-07-06] MEDS: HYDROCODONE/APAP 5/325MG TABLET PO PRN ×3 (06:18→22:45)
--- NOTE | 2021-07-06 06:20 | NUR ---
GPS RN NOTE: PAIN PATIENT C/O GENERALIZED BODY ACHE 09/17 AND REQUESTED TO TAKE NORCO.PRN NORCO 5-325 MG 1 TAB PO ADMINISTERED. WILL CONTINUE TO MONITOR.
[2021-07-06] MEDS: PANTOPRAZOLE 40 MG TABLET.DR PO SCH (06:58)
[2021-07-06 08:00] VITALS: BP 142/85
[2021-07-06] MEDS: clonazePAM 0.5 MG TABLET PO PRN ×2 (08:52→23:55)
[2021-07-06] MEDS: LITHIUM CARBONATE 150 MG CAPSULE PO SCH ×2 (08:52→21:10)
[2021-07-06] MEDS: QUETIAPINE FUMARATE 100 MG TABLET PO SCH ×2 (08:52→17:09)
[2021-07-06] MEDS: buPROPion 100 MG TABLET PO SCH (08:52)
[2021-07-06] MEDS: MAG HYDROX/AL HYDROX/SIMETH 30 ML UDC PO PRN ×4 (08:52→21:03)
[2021-07-06] MEDS: CEPHALEXIN MONOHYDRATE 500 MG CAPSULE PO SCH (08:53)
[2021-07-06] MEDS: ENOXAPARIN SODIUM 30 MG/0.3 ML DISP.SYRIN SQ SCH (08:54)
--- NOTE | 2021-07-06 08:55 | NUR ---
PATIENT C/O INDIGESTION AND WANTED TO TAKE MAALOX. PRN MAALOX 30 ML PRN ADMINISTERED.
--- NOTE | 2021-07-06 08:55 | NUR ---
KLONOPIN 0.5MG GIVEN FOR ANXIETY. WILL CONTINUE TO MONITOR.
[2021-07-06] MEDS: Z GUARD REMEDY 4 OZ OINT TP SCH (08:56)
--- NOTE | 2021-07-06 14:01 | NUR ---
NORCO 5-325 GIVEN FOR GENERALIZED PAIN. WILL CONTINUE TO MONITOR.
--- NOTE | 2021-07-06 14:02 | NUR ---
PATIENT C/O INDIGESTION AND WANTED TO TAKE MAALOX. PRN MAALOX 30 ML PRN ADMINISTERED.
[2021-07-06 16:00] VITALS: BP 105/63
[2021-07-06] MEDS: SULFAMETH/TRIMETH 800/160 MG 1 UDTAB TABLET PO SCH (17:09)
--- NOTE | 2021-07-06 18:12 | NUR ---
MAALOX GIVEN FOR INDIGESTION. WILL CONTINUE TO MONITOR.
[2021-07-06 19:58] VITALS: BP 118/52
[2021-07-06] MEDS: ACETAMINOPHEN 325 MG TABLET PO PRN (21:03)
--- NOTE | 2021-07-06 21:25 | NUR ---
GPS RN NOTES: TYLENOL 650MG GIVEN PO FOR GENERALIZED BODY PAIN AND MAALOX 30ML GIVEN PO FOR INDIGESTION AT 2103. WILL CONTINUE TO MONITOR.
[2021-07-06] MEDS: ZOLPIDEM TARTRATE 5 MG TABLET PO PRN (22:14)
--- NOTE | 2021-07-06 22:18 | NUR ---
GPS BERNICE NOTES: PATIENT REQUESTED FOR SLEEP MEDICATION. AMBIEN 5MG GIVEN PO AT 2241. WILL CONTINUE TO MONITOR. Addendum: 07/06/21 at 2221 by DONTRELL BEASLEY RN GIVEN AT 2214
--- NOTE | 2021-07-06 22:47 | NUR ---
GPS RN NOTES: PATIENT C/O GENERALIZED BODY PAIN. RATES PAIN LEVEL 8/10. NORCO 5/325MG GIVEN PO AT 2245. WILL CONTINUE TO MONITOR
--- NOTE | 2021-07-07 00:01 | NUR ---
GPS RN NOTES: PATIENT REQUESTED FOR KLONOPIN D/T ANXIETY. KLONOPIN 0.5MG GIVEN PO AT 2355. WILL CONTINUE TO MONITOR.
[2021-07-07] MEDS: SULFAMETH/TRIMETH 800/160 MG 1 UDTAB TABLET PO SCH ×2 (06:52→17:26)
--- NOTE | 2021-07-07 06:58 | NUR ---
GPS RN NOTES: BACTRIM 0.5UDTAB PARTIAL DOSE WASTED PER ORDER.
[2021-07-07] MEDS: PANTOPRAZOLE 40 MG TABLET.DR PO SCH (07:55)
[2021-07-07 08:00] VITALS: BP 140/83
[2021-07-07] MEDS: ENOXAPARIN SODIUM 30 MG/0.3 ML DISP.SYRIN SQ SCH (08:36)
[2021-07-07] MEDS: Z GUARD REMEDY 4 OZ OINT TP SCH (08:37)
[2021-07-07] MEDS: buPROPion 100 MG TABLET PO SCH (08:38)
[2021-07-07] MEDS: LITHIUM CARBONATE 150 MG CAPSULE PO SCH ×2 (08:38→20:54)
[2021-07-07] MEDS: QUETIAPINE FUMARATE 100 MG TABLET PO SCH ×2 (08:38→16:09)
[2021-07-07] MEDS: HYDROCODONE/APAP 5/325MG TABLET PO PRN ×3 (08:48→23:10)
[2021-07-07] MEDS: clonazePAM 0.5 MG TABLET PO PRN ×3 (09:45→23:10)
--- NOTE | 2021-07-07 09:46 | NUR ---
RN-CO: KLONOPIN 0.5 MG PO FOR ANXIETY.
--- NOTE | 2021-07-07 11:44 | NUR ---
RN-CO: PT REFUSED LABS X 3 NOW. ENC BUT FIRMLY REFUSED.
--- NOTE | 2021-07-07 11:46 | NUR ---
RN-CO: DR WORTHY MADE AWARE OF PT'S REFUSING LAB EXAM.
[2021-07-07] MEDS: MAG HYDROX/AL HYDROX/SIMETH 30 ML UDC PO PRN ×2 (11:55→20:54)
--- NOTE | 2021-07-07 11:55 | NUR ---
MARINACO: CHIKIS REQUESTED FOR C/O HYPERACIDITY.
--- NOTE | 2021-07-07 14:25 | NUR ---
RN-CO: ATIVAN 1 MG PO FOR C/O ANXIETY. Addendum: 07/07/21 at 1426 by KOMAL ZACARIAS RN RN-CO: CLONOPIN 0.5 MG PO NOT ATIVAN.
[2021-07-07] MEDS: ACETAMINOPHEN 325 MG TABLET PO PRN (14:33)
--- NOTE | 2021-07-07 14:42 | NUR ---
RN-CO: NOTIFIED DR ZAYNAB Rodgers THAT PT IS COMPLAINING OF ITCHINESS. AWAITING TO CALL BACK.
--- NOTE | 2021-07-07 14:57 | NUR ---
RN-CO: DR WORTHY ORDERED BENADRYL 25 MG PO Q 12 HRS PRN FOR ITCH, NOTED AND CARRIED OUT.
[2021-07-07] MEDS: diphenhydrAMINE HCL 25 MG CAPSULE PO PRN (15:04)
[2021-07-07 16:00] VITALS: BP 119/50
--- NOTE | 2021-07-07 16:10 | NUR ---
RN-CO: NORCO GIVEN FOR C/O GEN BODY PAIN 11/17.
[2021-07-07 20:22] VITALS: BP 124/84
[2021-07-07] MEDS: ZOLPIDEM TARTRATE 5 MG TABLET PO PRN (20:54)
[2021-07-08] MEDS: SULFAMETH/TRIMETH 800/160 MG 1 UDTAB TABLET PO SCH ×2 (06:07→17:11)
[2021-07-08] MEDS: HYDROCODONE/APAP 5/325MG TABLET PO PRN ×3 (06:07→20:44)
--- NOTE | 2021-07-08 06:09 | NUR ---
GPS RN NOTES: PATIENT C/O GENERALIZED BODY PAIN. RATES PAIN LEVEL 7/10. NORCO 5/325MG GIVEN PO AT 0607. WILL CONTINUE TO MONITOR.
--- NOTE | 2021-07-08 06:11 | NUR ---
GPS RN NOTES: BACTRIM 0.5UDTAB PARTIAL DOSE WASTED PER ORDER.
[2021-07-08 08:00] VITALS: BP_SYST 121; BP_SYST 134; BP_DIAS 62; BP_DIAS 90
[2021-07-08] MEDS: PANTOPRAZOLE 40 MG TABLET.DR PO SCH (08:33)
[2021-07-08] MEDS: LITHIUM CARBONATE 150 MG CAPSULE PO SCH ×2 (08:44→20:44)
[2021-07-08] MEDS: buPROPion 100 MG TABLET PO SCH (08:45)
[2021-07-08] MEDS: QUETIAPINE FUMARATE 100 MG TABLET PO SCH ×2 (08:45→16:47)
[2021-07-08] MEDS: ENOXAPARIN SODIUM 30 MG/0.3 ML DISP.SYRIN SQ SCH (08:47)
[2021-07-08] MEDS: Z GUARD REMEDY 4 OZ OINT TP SCH (08:50)
[2021-07-08] MEDS: MAG HYDROX/AL HYDROX/SIMETH 30 ML UDC PO PRN ×2 (10:07→20:44)
--- NOTE | 2021-07-08 10:07 | NUR ---
RN-NOTES PATIENT C/O OF INDIGESTION,MAALOX 30ML GIVEN PRN ORDER.
[2021-07-08] MEDS: diphenhydrAMINE HCL 25 MG CAPSULE PO PRN (10:48)
--- NOTE | 2021-07-08 10:49 | NUR ---
RN-NOTES PATIENT C/O HAVING ITCH ON HER FACE AND REQUESTING BENADRYL. BENADRYL 25MG P.O GIVEN PRN ORDER..
[2021-07-08] MEDS: clonazePAM 0.5 MG TABLET PO PRN ×2 (18:08→22:19)
--- NOTE | 2021-07-08 18:11 | NUR ---
RN-NOTES PATIENT C/O ANXIETY AND REQUESTING KLONOPIN. KLONOPIN 0.5MG P.O GIVEN PRN ORDER.WILL ENDORSE TO INCOMING NURSE FOR CONTINUITY OF CARE AND MONITORING FOR SAFETY AND BEHAVIOR.
--- NOTE | 2021-07-08 19:15 | NUR ---
RN-NOTES PATIENT LYING IN BED AWAKE,ALERT ,CALM NO ACUTE DISTRESS NOTED.
[2021-07-08 20:00] VITALS: BP 154/71
[2021-07-08] MEDS: ZOLPIDEM TARTRATE 5 MG TABLET PO PRN (20:43)
[2021-07-09 08:00] VITALS: BP 154/83
[2021-07-09] MEDS: QUETIAPINE FUMARATE 100 MG TABLET PO SCH ×2 (09:08→17:00)
[2021-07-09] MEDS: PANTOPRAZOLE 40 MG TABLET.DR PO SCH (09:08)
[2021-07-09] MEDS: LITHIUM CARBONATE 150 MG CAPSULE PO SCH ×2 (09:08→20:18)
[2021-07-09] MEDS: buPROPion 100 MG TABLET PO SCH (09:08)
[2021-07-09] MEDS: Z GUARD REMEDY 4 OZ OINT TP SCH (09:10)
[2021-07-09] MEDS: ENOXAPARIN SODIUM 30 MG/0.3 ML DISP.SYRIN SQ SCH (09:12)
[2021-07-09] MEDS: HYDROCODONE/APAP 5/325MG TABLET PO PRN ×2 (09:25→18:11)
[2021-07-09] MEDS: clonazePAM 0.5 MG TABLET PO PRN ×2 (09:25→18:11)
[2021-07-09] MEDS: diphenhydrAMINE HCL 25 MG CAPSULE PO PRN (10:34)
--- NOTE | 2021-07-09 11:14 | NUR ---
RN NOTES PATIENT SEEN BY DR. WORTHY TODAY. MADE AWARE OF REDNESS ON FACIAL AREA OF PATIENT. PATIENT STATED THAT SHE TRIED TO SCRATCH HER FACE BECAUSE IT FEELS ITCHY; PRN BENADRYL ADMINISTERED TO PATIENT. W/ ORDER FOR BMP AT THIS TIME AND CONTINUE TO MONITOR.
--- NOTE | 2021-07-09 12:38 | NUR ---
Court Hearing Notification: Pt does not have any supportive contact to notify for 5250 hearing.
--- NOTE | 2021-07-09 12:38 | NUR ---
Court Hearing: Patient's court hearing for 5250 was today and it was upheld for GD and danger to self.
[2021-07-09 13:22] LABS: CHOLESTEROL 234 mg/dL (<200); HDL CHOLESTEROL 43 mg/dL (40-60); LDL 166 mg/dL (0-99); TRIGLYCERIDES 121 mg/dL (30-150)
[2021-07-09 16:00] VITALS: BP 147/76
[2021-07-09] MEDS: SULFAMETH/TRIMETH 800/160 MG 1 UDTAB TABLET PO SCH (17:00)
--- NOTE | 2021-07-09 19:30 | NUR ---
GPS RN OPENING NOTE RECEIVED PATIENT AWAKE IN BED. A/O X3 AND ABLE TO MAKE NEEDS KNOWN. PATIENT STABLE ON ROOM AIR. NO SOB OR S/S OF RESPIRATORY DISTRESS NOTED. PATIENT IS MED COMPLIANT, NEEDY, RESTLESS, ANXIOUS, AND DEMANDING. SAFETY PRECAUTIONS IN PLACE. BED IN LOWEST LOCKED POSITION, SIDE RAILS UP X2, AND CALL LIGHT IN REACH. WILL CONTINUE WITH PLAN OF CARE.
[2021-07-09 20:00] VITALS: BP 123/49
[2021-07-09] MEDS: MAG HYDROX/AL HYDROX/SIMETH 30 ML UDC PO PRN (20:32)
--- NOTE | 2021-07-09 20:32 | NUR ---
RN NOTE PT COMPLAINING OF INDIGESTION AND REQUESTING MAALOX. ADMINISTERED MAALOX ORDERED FOR INDIGESTION. WILL CONTINUE WITH PLAN OF CARE.
[2021-07-09] MEDS: ZOLPIDEM TARTRATE 5 MG TABLET PO PRN (21:50)
--- NOTE | 2021-07-09 21:50 | NUR ---
RN NOTE PT COMPLAINED OF INSOMNIA AND REQUESTED SLEEPING PILL. ADMINISTERED AMBIEN 5 MG FOR INSOMNIA ORDERED. WILL CONTINUE WITH PLAN OF CARE.
--- NOTE | 2021-07-10 06:00 | NUR ---
RN NOTE PT REFUSED LINEN CHANGE AND CLEANING THIS AM. CHARGE NURSE GATO ROSARIO.
[2021-07-10] MEDS: SULFAMETH/TRIMETH 800/160 MG 1 UDTAB TABLET PO SCH ×2 (06:06→17:38)
[2021-07-10 08:00] VITALS: BP 146/71
[2021-07-10] MEDS: buPROPion 100 MG TABLET PO SCH (10:18)
[2021-07-10] MEDS: PANTOPRAZOLE 40 MG TABLET.DR PO SCH (10:18)
[2021-07-10] MEDS: LITHIUM CARBONATE 150 MG CAPSULE PO SCH ×2 (10:20→20:51)
[2021-07-10] MEDS: HYDROCODONE/APAP 5/325MG TABLET PO PRN ×2 (10:20→17:49)
[2021-07-10] MEDS: QUETIAPINE FUMARATE 100 MG TABLET PO SCH ×2 (10:20→17:38)
--- NOTE | 2021-07-10 10:20 | NUR ---
GIVEN NORCO FOR LEVEL #10 PAIN.YELLING OUT FROM TIME TO TIME.RIGHT AFTER NORCO, REQUESTED ALVERTO.RN EXPLAINING TO PT. THAT WE CAN NOT GIVE THEM SIMULTANEOUSLY.STATES SHE ALWAYS GETS THESE MEDS AT THE SAME TIME.
[2021-07-10] MEDS: Z GUARD REMEDY 4 OZ OINT TP SCH (10:33)
--- NOTE | 2021-07-10 10:50 | NUR ---
DR. GARCIA HERE AND HEARD PT. LELE JI ORDERED. INFORMED OF RECENT MEDS ADMINISTERED BY RN. OK'D ZYPREXA TO BE GIVEN.PT STILL ASKING WHEN SHE CAN HAVE KLONOPIN .SIDERAILS UP.NOW ASKING FOR LUNCH.
[2021-07-10] MEDS ORDERED: OLANZAPINE 10 MG VIAL IM ONE (11:00)
[2021-07-10 12:16] LABS: CALCIUM, SERUM 9.5 mg/dL (8.5-10.1); CARBON DIOXIDE 21 mmol/L (21-32); CHLORIDE 105 mmol/L (98-107); GLUCOSE 126 mg/dL (74-106); SODIUM SERUM 136 mmol/L (136-145); UREA NITROGEN, BLOOD 33 mg/dL (7-18)
--- NOTE | 2021-07-10 14:11 | NUR ---
given klonopin and maalox.
[2021-07-10] MEDS: MAG HYDROX/AL HYDROX/SIMETH 30 ML UDC PO PRN (14:13)
[2021-07-10] MEDS: clonazePAM 0.5 MG TABLET PO PRN (14:14)
[2021-07-10 16:00] VITALS: BP 128/92
--- NOTE | 2021-07-10 17:50 | NUR ---
given norco for generalized pain.
--- NOTE | 2021-07-10 18:33 | NUR ---
NOTED RASH ON FACE PT. STATES HAS HAD FOR SOME TIME
[2021-07-10 20:00] VITALS: BP 127/61
[2021-07-10] MEDS: ZOLPIDEM TARTRATE 5 MG TABLET PO PRN (22:13)
[2021-07-11] MEDS: clonazePAM 0.5 MG TABLET PO PRN ×3 (00:09→20:21)
[2021-07-11] MEDS: HYDROCODONE/APAP 5/325MG TABLET PO PRN ×3 (01:22→23:04)
--- NOTE | 2021-07-11 03:01 | NUR ---
RN OPENING NOTE PATIENT AWAKE IN BED. A/OX3. NO S/S OF DISTRESS; BREATHING UNLABORED ON RM AIR. PATIENT COMPLAINS OF WANTING TO SLEEP AND CAN'T. WILL FOLLOW-UP W/ APPROPRIATE MEDICATIONS PER MD'S ORDERS TO MEET PATIENT'S NEEDS. SAFETY MEASURES IN PLACE: BED AT LOWEST POSITION, CALL LIGHT WITHIN ACCESS. WILL CONTINUE TO MONITOR PATIENT.
[2021-07-11] MEDS: SULFAMETH/TRIMETH 800/160 MG 1 UDTAB TABLET PO SCH (05:17)
[2021-07-11] MEDS: PANTOPRAZOLE 40 MG TABLET.DR PO SCH (06:30)
[2021-07-11 08:00] VITALS: BP 122/93
[2021-07-11] MEDS: LITHIUM CARBONATE 150 MG CAPSULE PO SCH ×2 (08:52→20:21)
[2021-07-11] MEDS: QUETIAPINE FUMARATE 100 MG TABLET PO SCH ×2 (08:52→16:06)
--- NOTE | 2021-07-11 08:53 | NUR ---
RN-CO: NORCO 1 TABLET GIVEN FOR C/O GEN BODY PAIN 11/17.
[2021-07-11] MEDS: Z GUARD REMEDY 4 OZ OINT TP SCH (10:02)
[2021-07-11] MEDS: diphenhydrAMINE HCL 25 MG CAPSULE PO PRN (14:57)
--- NOTE | 2021-07-11 14:57 | NUR ---
RN-CO: BENADRYL GIVEN FOR C/O ITCHINESS ON HER LEFT ARM.
[2021-07-11 16:00] VITALS: BP 139/71
[2021-07-11 20:17] VITALS: BP 144/56
[2021-07-11 20:22] VITALS: BP 144/56
[2021-07-11 20:25] VITALS: BP 144/56
--- NOTE | 2021-07-11 21:19 | NUR ---
GPS RN NOTES PATIENT REFUSING SKIN ASSESSMENT AND PHOTOS PER PROTOCOL; PATIENT ONLY WANTS MEDICATIONS IF NEEDED; PATIENT RE-EDUCATED ON COMPLIANCE, PATIENT VERBALIZED, " I DO NOT CARE, JUST GIVE ME MY MEDICINE." CHARGE NURSE MADE AWARE
[2021-07-11] MEDS: ZOLPIDEM TARTRATE 5 MG TABLET PO PRN (21:55)
[2021-07-11] MEDS: MAG HYDROX/AL HYDROX/SIMETH 30 ML UDC PO PRN (23:04)
--- NOTE | 2021-07-11 23:19 | NUR ---
GPS RN NOTES PATIENT YELLING AND DISRUPTING STAFF; PATIENT WANTED ANOTHER DOSE OF SLEEPING MED; PATIENT WAS EDUCATED THAT SLEEPING MED CAN NO LONGER BE GIVEN BECAUSE IT WAS ALREADY ADMINISTERED EARLIER; PATIENT STARTED SCREAMING, STATED, " I WILL CONTINUE YELLING THE WHOLE NIGHT AND THE WHOLE HOSPITAL WILL BE AWARE OF THIS." PATIENT WAS EDUCATED AND TOLD PATIENT TO SPEAK WITH CHARGE NURSE IF SHE HAS AN ISSUE WITH DOCTOR ORDER; CHARGE NURSE SPOKE WITH PATIENT, LIMITS WE SET; PATIENT TOLD PRN MEDICATION REQUESTED IS DUE 1AM; PATIENT AGREED TO TAKE MEDICATION AT 1AM AND NOT YELL THROUGHOUT THE NIGHT; WILL CONT TO MONITOR
--- NOTE | 2021-07-12 07:30 | NUR ---
PT RECEIVED RESTING COMFORTABLY IN BED. NO S/S OR C/O PAIN OR DISTRESS NOTED. SIDE RAILS UP X2. WILL CONTINUE PLAN OF CARE
[2021-07-12 08:00] VITALS: BP 152/65
[2021-07-12] MEDS: LITHIUM CARBONATE 150 MG CAPSULE PO SCH ×2 (08:31→21:12)
[2021-07-12] MEDS: QUETIAPINE FUMARATE 100 MG TABLET PO SCH ×2 (08:31→18:13)
[2021-07-12] MEDS: HYDROCODONE/APAP 5/325MG TABLET PO PRN ×2 (08:31→14:45)
[2021-07-12] MEDS: PANTOPRAZOLE 40 MG TABLET.DR PO SCH (08:31)
[2021-07-12] MEDS: MAG HYDROX/AL HYDROX/SIMETH 30 ML UDC PO PRN ×3 (09:26→22:07)
[2021-07-12] MEDS: Z GUARD REMEDY 4 OZ OINT TP SCH (09:27)
[2021-07-12] MEDS: clonazePAM 0.5 MG TABLET PO PRN ×4 (09:46→23:23)
[2021-07-12 16:00] VITALS: BP 136/71
[2021-07-12 20:05] VITALS: BP 148/78
[2021-07-12] MEDS: ZOLPIDEM TARTRATE 5 MG TABLET PO PRN (22:09)
--- NOTE | 2021-07-12 22:09 | NUR ---
GPS RN NOTE: MAALOX GIVEN PATIENT C/O INDIGESTION AND WANTED TO TAKE MAALOX. PRN MAALOX 30 ML PRN ADMINISTERED.
--- NOTE | 2021-07-12 22:11 | NUR ---
GPS RN NOTE: INSOMNIA PATIENT VERBALIZED THAT SHE IS UNABLE TO SLEEP AND WANTED TO TAKE SLEEPING MEDICINE. PRN AMBIEN 5 MG PO ADMINISTERED.
--- NOTE | 2021-07-12 23:25 | NUR ---
GPS RN NOTE: ANXIETY PATIENT C/O FEELING ANXIOUS AND RESTLESS AND WANTED TO TAKE MEDICINE FOR ANXIETY. PRN KLONOPIN 0.5 MG 1 TAB PO ADMINISTERED. WILL CONTINUE TO MONITOR FOR ANY CHANGES.
[2021-07-13] MEDS: clonazePAM 0.5 MG TABLET PO PRN ×3 (06:28→20:59)
--- NOTE | 2021-07-13 06:30 | NUR ---
GPS RN NOTE: ANXIETY PATIENT C/O FEELING ANXIOUS AND RESTLESS AND WANTED TO TAKE MEDICINE FOR ANXIETY. PRN KLONOPIN 0.5 MG 1 TAB PO ADMINISTERED. WILL ENDORSE TO AM RN FOR CONTINUITY OF CARE.
[2021-07-13] MEDS: HYDROCODONE/APAP 5/325MG TABLET PO PRN (07:54)
[2021-07-13] MEDS: PANTOPRAZOLE 40 MG TABLET.DR PO SCH (07:54)
[2021-07-13 08:00] VITALS: BP_SYST 132; BP_SYST 138; BP_DIAS 66; BP_DIAS 77
[2021-07-13] MEDS: Z GUARD REMEDY 4 OZ OINT TP SCH (09:05)
[2021-07-13] MEDS: QUETIAPINE FUMARATE 100 MG TABLET PO SCH ×2 (09:05→17:36)
[2021-07-13] MEDS: LITHIUM CARBONATE 150 MG CAPSULE PO SCH ×2 (09:05→17:36)
[2021-07-13] MEDS: MAG HYDROX/AL HYDROX/SIMETH 30 ML UDC PO PRN ×2 (13:28→21:09)
[2021-07-13 19:46] VITALS: BP 148/75
[2021-07-13 19:55] VITALS: BP 148/75
[2021-07-13] MEDS: ZOLPIDEM TARTRATE 5 MG TABLET PO PRN (22:03)
--- NOTE | 2021-07-14 04:42 | NUR ---
alert and orientated x4 verbalizes her needs knows her medications and will rquest as needed stated she takes either or ambien then klonopin shortly after and she can go to sleep but she will need both in a room by herself. slept soundly
[2021-07-14] MEDS: clonazePAM 0.5 MG TABLET PO PRN (06:07)
[2021-07-14 08:00] VITALS: BP 140/72
[2021-07-14] MEDS: QUETIAPINE FUMARATE 100 MG TABLET PO SCH ×2 (10:07→16:47)
[2021-07-14] MEDS: HYDROCODONE/APAP 5/325MG TABLET PO PRN ×2 (10:07→16:47)
--- NOTE | 2021-07-14 10:07 | NUR ---
GIVEN NORCO FOR GENERALIZED PAIN.
[2021-07-14] MEDS: PANTOPRAZOLE 40 MG TABLET.DR PO SCH (10:08)
[2021-07-14] MEDS: LITHIUM CARBONATE 150 MG CAPSULE PO SCH ×2 (10:08→16:46)
[2021-07-14] MEDS: Z GUARD REMEDY 4 OZ OINT TP SCH (10:10)
[2021-07-14] MEDS: MAG HYDROX/AL HYDROX/SIMETH 30 ML UDC PO PRN ×2 (10:19→22:53)
--- NOTE | 2021-07-14 10:20 | NUR ---
GIVEN MAALOX FOR INDIGESTION.
--- NOTE | 2021-07-14 15:24 | NUR ---
Individual Counseling: SW met with pt. at bedside to conducted counseling regarding positive coping mechanisms. The pt. is alert & oriented with appropriate eye contact. The pt. remained calm & cooperative throughout therapy. SW educated pt. on some positive coping mechanisms. Patient was receptive and stated she likes to pray or meditate when she is not feeling herself. SW validated and reinforced her coping mechanism she already uses.
[2021-07-14 16:00] VITALS: BP 127/71
[2021-07-14] MEDS ORDERED: BISACODYL SUPP (10 MG) 10 MG/SUPP.RECT SUPP.RECT RC PRN (16:30)
--- NOTE | 2021-07-14 16:50 | NUR ---
given norco for #10 generalized pain.
--- NOTE | 2021-07-14 18:25 | NUR ---
yelling out from time to time to make needs known
[2021-07-14 20:00] VITALS: BP 135/86
[2021-07-14] MEDS: ZOLPIDEM TARTRATE 5 MG TABLET PO PRN (22:53)
--- NOTE | 2021-07-14 22:53 | NUR ---
GPS RN NOTES: PATIENT C/O INABILITY TO SLEEP. PRN AMBIEN 5MG PO GIVEN PER PT'S REQUEST. WILL CONTINUE TO MONITOR.
[2021-07-14] MEDS: ACETAMINOPHEN 325 MG TABLET PO PRN (22:58)
--- NOTE | 2021-07-15 | NUR ---
GPS RN NOTES: ANXIETY PATIENT C/O FEELING ANXIOUS. PRN KLONOPIN 0.5MG PO GIVEN ORDERED PER PT'S REQUEST. WILL CONTINUE TO MONITOR FOR PT'S SAFETY.
[2021-07-15] MEDS: HYDROCODONE/APAP 5/325MG TABLET PO PRN (05:49)
--- NOTE | 2021-07-15 05:49 | NUR ---
GPS RN NOTES: PATIENT C/O GENERALIZED PAIN ON A PAIN SCALE OF 7/10. PRN NORCO 5/325MG PO GIVEN ORDERED. WILL CONTINUE TO REASSESS.
[2021-07-15 08:00] VITALS: BP 132/69
[2021-07-15] MEDS: PANTOPRAZOLE 40 MG TABLET.DR PO SCH (08:18)
--- NOTE | 2021-07-15 08:20 | NUR ---
SW Discharge Note: Patient will be discharged to [facility] [address] [place] [address] ([phone]). Please arrange transportation for patient at 1:00pm. Spoke with Abdullahi, Admin Coordinator at the facility who states they are ready to accept the patient today. Patient does not have any supportive contact at this time. Patient is aware and agreeable with discharge plans and presents with calm mood and euthymic affect. Patient is alert and oriented x2, is unable to plan for self-care, however, would like to continue receiving care at [facility]. Patient denies any suicidal or homicidal ideation. Patient will follow-up at the facility with Psychiatrist Dr. Badillo [address] [place] [address]; ([phone]) and Flight Service Agent Dr. Tapia at [address], [place] [address]; ([phone]). Patient presents with euthymic mood and congruent affect.
[2021-07-15] MEDS: LITHIUM CARBONATE 150 MG CAPSULE PO SCH (08:44)
[2021-07-15] MEDS: QUETIAPINE FUMARATE 100 MG TABLET PO SCH (08:44)
[2021-07-15] MEDS: Z GUARD REMEDY 4 OZ OINT TP SCH (10:27)
[2021-07-15] MEDS: clonazePAM 0.5 MG TABLET PO PRN ×2 (10:28)
--- NOTE | 2021-07-15 10:32 | NUR ---
RN-NOTES PATIENT C/O ANXIETY AND REQUESTING KLONOPIN. KLONOPIN 0.5MG P.O GIVEN PRN ORDER. WILL CONTINUE MONITORING FOR SAFETY AND BEHAVIOR.
--- NOTE | 2021-07-15 11:35 | NUR ---
RN-NOTES PATIENT LYING IN BED CALM,NO ACUTE DISTRESS NOTED.
[2021-07-15] MEDS: MAG HYDROX/AL HYDROX/SIMETH 30 ML UDC PO PRN (12:25)
--- NOTE | 2021-07-15 12:26 | NUR ---
RN-NOTES PATIENT C/O INDIGESTION.MAALOX 30ML GIVEN PRN ORDER.
--- NOTE | 2021-07-15 13:23 | NUR ---
RN-DISCHARGE NOTES RECEIVED DISCHARGE ORDER FROM NOE SKY( COVERING FOR DR. COLEMAN). NOE DUFFY MEDICALLY CLEARED PATIENT FOR DISCHARGE. REPORT WAS GIVEN TO NATHAN (RN) MANAGER OF TAX. PATIENT DID NOT VERBALIZE SI/HI DENIES VISUAL/AUDITORY HALLUCINATIONS AT THE TIME OF DISCHARGE. PATIENT REFUSED TO SIGN DISCHARGE PAPERS.PATIENT HAD NO FAMILY TO NOTIFY ON THE DISCHARGE.PATIENT LEFT THE UNIT IN STABLE CONDITION ON THE DISCHARGE. PATIENT WAS LINE HAUL OWNER OPERATOR BY AMBULANCE VIA GURNEY WITH 3 STAFF ASSIST.PATIENT HAD NO BELONGINGS, MASK WAS PROVIDED TO THE PATIENT.
== END 2021-07-15 13:25 | DRG 885 ==
LOC: ER 19:45 → GPS 07-03 01:43
PROVIDERS: ADMIT Nurse Practitioner Psychiatric/Mental Health; ATTEND Nurse Practitioner Acute Care
DX: F25.0 Schizoaffective disorder, bipolar type (principal); N17.0 Acute kidney failure with tubular necrosis; E44.0 Moderate protein-calorie malnutrition; N39.0 Urinary tract infection, site not specified; D68.59 Other primary thrombophilia; Z68.42 Body mass index [BMI] 45.0-49.9, adult; Z16.12 Extended spectrum beta lactamase (ESBL) resistance; F32.9 Major depressive disorder, single episode, unspecified; F29 Unspecified psychosis not due to a substance or known physiological condition; Z90.49 Acquired absence of other specified parts of digestive tract; Z20.822 Contact with and (suspected) exposure to COVID-19; E66.01 Morbid (severe) obesity due to excess calories; F41.9 Anxiety disorder, unspecified; G62.9 Polyneuropathy, unspecified; G89.29 Other chronic pain; I10 Essential (primary) hypertension; Z73.6 Limitation of activities due to disability; M51.36 Other intervertebral disc degeneration, lumbar region; M19.90 Unspecified osteoarthritis, unspecified site; Z79.899 Other long term (current) drug therapy; X83.8XXA Intentional self-harm by other specified means, initial encounter; Y93.89 Activity, other specified; Y92.129 Unspecified place in nursing home as the place of occurrence of the external cause; B96.20 Unspecified Escherichia coli [E. coli] as the cause of diseases classified elsewhere
CPT/HCPCS: 36415; 80048-TC; 80061-TC; 80076-TC; 81001; 82962-TC; 85025-TC; 87081-TC; 87086-TC; 87186-TC; 97112-TC; 97530-TC; C9803; G0480; J1650; J3490; Q0163

== ENCOUNTER 2022-02-08 16:15 | Inpatient (IN) | payer MEDICARE, OTHER ==
[~2022-02-08] VITALS: Ht 165.1 cm; Wt 100.7 kg
[~2022-02-08 16:15] MED LIST changes: -BUPR-96 PO; -CLON0.5T PO; -LITH300C4 PO; -RISP0.2515 PO
[2022-02-08] MEDS ORDERED: ONDANSETRON HCL/PF 4 MG/2 ML VIAL IVP ONE (16:30)
--- NOTE | 2022-02-08 16:42 | NUR ---
PT TRANSFER FROM [facility]
--- NOTE | 2022-02-08 16:45 | NUR ---
REceived pt 76 yrs female came by EMT AMBLANCE FOR NUSEA awake fallow command respirtion spont and easy
--- NOTE | 2022-02-08 16:50 | NUR ---
DR. GUZMAN AT BED SIDE SEEN PT
--- NOTE | 2022-02-08 17:00 | NUR ---
PT Refused to inserted iv line and zofran iv at this time aware and notefyed
[2022-02-08] MEDS ORDERED: BACL10TA PO (17:09)
[2022-02-08] MEDS ORDERED: BUSP5TAB3 PO (17:09)
[2022-02-08] MEDS ORDERED: QUET100T PO (17:09)
[2022-02-08] MEDS ORDERED: SENN-261 PO (17:09)
[2022-02-08] MEDS ORDERED: NA P133E RC (17:09)
[2022-02-08] MEDS ORDERED: DOCU-141 PO (17:09)
[2022-02-08] MEDS ORDERED: MELA3TAB41 PO (17:09)
[2022-02-08] MEDS ORDERED: LEVO50TA8 PO (17:09)
[2022-02-08] MEDS ORDERED: NYST5ORA PO (17:09)
[2022-02-08] MEDS ORDERED: DIPH25CA51 PO (17:09)
[2022-02-08] MEDS ORDERED: MAGN400O6 PO (17:09)
[2022-02-08] MEDS ORDERED: HYDR-4303 PO (17:09)
[2022-02-08] MEDS ORDERED: SIME80TA15 PO (17:09)
[2022-02-08] MEDS ORDERED: NUT.237L67 PO (17:09)
[2022-02-08] MEDS ORDERED: LUBI24CA5 PO (17:09)
[2022-02-08] MEDS ORDERED: ACET-868 PO (17:09)
[2022-02-08] MEDS ORDERED: TYL2T PO (17:09)
[2022-02-08] MEDS ORDERED: ONDA-97 PO (17:09)
[2022-02-08] MEDS ORDERED: BISA10SU11 RC (17:09)
[2022-02-08] MEDS ORDERED: PSYL3.4P6 PO (17:09)
[2022-02-08] MEDS ORDERED: POLY17PO4 PO (17:09)
--- NOTE | 2022-02-08 17:27 | NUR ---
ACCUCHECHED DONE 91 MG/LD DR. GUZMAN NOTEFED AND AWARE
--- NOTE | 2022-02-08 17:31 | NUR ---
BLood drow by lab tach
[2022-02-08 17:42] LABS: BASOPHILS % (AUTO) 0.3 % (0.0-2.0); EOSINOPHILS % (AUTO) 4.7 % (0.0-6.0); HEMATOCRIT 36 % (33-45); HEMOGLOBIN 11.5 g/dL (11.5-14.8); LYMPHOCYTES % (AUTO) 20.8 % (20.0-44.0); MEAN CORPUSCULAR HGB CONC 32 g/dl (31.0-36.0); MEAN CORPUSCULAR VOLUME 78 fL (82-100); MONOCYTES # (AUTO) 0.6 K/uL (0.1-1.30); MONOCYTES % (AUTO) 6.2 % (2.0-12.0); NEUTROPHILS # (AUTO) 6.5 K/uL (1.8-8.9); PLATELET COUNT (AUTO) 415 K/uL (150-450); RED BLOOD CELL COUNT(AUTO) 4.58 MIL/uL (4.0-5.2); WHITE BLOOD COUNT (AUTO) 9.6 K/uL (4.3-11.0)
[2022-02-08 18:11] LABS: ALANINE AMINOTRANSFERASE 13 U/L (12-78); ALKALINE PHOSPHATASE 77 U/L (46-116); ASPARTATE AMINOTRANSFERASE 18 U/L (15-37); BILIRUBIN,DIRECT 0.1 mg/dL (0.0-0.2); BILIRUBIN,TOTAL 0.3 mg/dL (0.2-1.0); CARBON DIOXIDE 26 mmol/L (21-32); CHLORIDE 105 mmol/L (98-107); CREATININE 1.4 mg/dL (0.6-1.3); GLUCOSE 102 mg/dL (74-106); LIPASE 229 U/L (73-393); POTASSIUM 3.4 mmol/L (3.5-5.1); SODIUM SERUM 137 mmol/L (136-145); TOTAL PROTEIN, SERUM 7.5 g/dL (6.4-8.2); UREA NITROGEN, BLOOD 11 mg/dL (7-18)
[2022-02-08] MEDS ORDERED: LEVOFLOXACIN 500 MG /D5W 100ML 500 MG/100 ML PIGGYBACK IV ONE (18:30)
[2022-02-08] MEDS ORDERED: FLAGYL/NS RTU 500 MG/100 ML PIGGYBACK IV ONE (18:30)
[2022-02-08] MEDS: IV NS 0.9% 1,000 ML IV ONE (18:30)
[2022-02-08] MEDS ORDERED: MORPHINE SULFATE INJ 2 MG/ML DISP.SYRIN IV ONE (18:30)
--- NOTE | 2022-02-08 18:30 | NUR ---
COVID SWAB SENT TO LAB
[2022-02-08] MEDS ORDERED: LEVOFLOXACIN 500 MG /D5W 100ML 100 ML IV ONE (18:35)
[2022-02-08] MEDS ORDERED: ONDANSETRON HCL/PF 4 MG/2 ML VIAL ONE (18:35)
[2022-02-08] MEDS ORDERED: METRONIDAZOLE 500MG/ NS 100ML 100 ML IV ONE (18:35)
--- NOTE | 2022-02-08 19:23 | NUR ---
INSERTED FC FR 16 NO DIFFECULTY UA SENT TOP LAB
--- NOTE | 2022-02-08 19:32 | NUR ---
HAND OFF FALGUNI QUEEN
--- NOTE | 2022-02-08 19:41 | NUR ---
RECEIVED REPORT FROM JAMAL QUEEN FOR GIULIANA
--- NOTE | 2022-02-08 19:45 | NUR ---
PT IS RESTING IN BED, RR EVEN AND NON LABORED. CONNECTED TO MONITOR. VSS. NO IV LINE INSERTED BY PRIOR SHIFT. UNABLE TO GIVE ORDERED MEDS. MID LINE NURSE WAS CALLED.
[2022-02-08 19:56] LABS: BILIRUBIN,URINE NEGATIVE (NEGATIVE); COLOR,URINE YELLOW (YELLOW); LEUKOCYTE ESTERASE ,URINE NEGATIVE (NEGATIVE); NITRITE, URINE NEGATIVE (NEGATIVE); PH,URINE 6.5 (5.0-8.0); PROTEIN,URINE NEGATIVE (NEGATIVE); UGLUCOSE NEGATIVE (NEGATIVE); UROBILINOGEN,URINE 0.2 EU/dL (0.2)
[2022-02-08 20:01] LABS: RBC,URINE 0-2 /HPF (0-2)
[2022-02-08 20:02] LABS: BACTERIA,URINE Few /HPF (None Seen); SQUAMOUS EPITHELIAL CELL,UR Few /HPF (None Seen)
--- NOTE | 2022-02-08 20:45 | NUR ---
DR ROJAS AT BED SIDE
[2022-02-08] MEDS ORDERED: LEVOFLOXACIN 500 MG /D5W 100ML 500 MG in PREMIX 1 EA IV SCH (21:00)
[2022-02-08] MEDS ORDERED: IV NS 0.9% 1,000 ML IV PRN (21:00)
[2022-02-08] MEDS ORDERED: ACETAMINOPHEN 650 MG/SUPP.RECT RC PRN (21:00)
[2022-02-08] MEDS ORDERED: ONDANSETRON 4 MG TAB.RAPDIS SL ONE (22:00)
[2022-02-08] MEDS ORDERED: ONDANSETRON 4 MG TAB.RAPDIS ONE ×2 (22:01→23:48)
[2022-02-08] MEDS ORDERED: MORPHINE SULFATE INJ 4 MG/ML DISP.SYRIN ONE (22:43)
--- NOTE | 2022-02-08 22:53 | NUR ---
MID LINE STILL NOT AVAILABLE, PER DR GUZMAN MORPHINE GIVEN IM
[2022-02-08] MEDS ORDERED: HYDROMORPHONE 1 MG/1 ML DISP.SYRIN ONE (23:47)
[2022-02-09] MEDS ORDERED: ONDANSETRON 4 MG TAB.RAPDIS SL ONE
[2022-02-09] MEDS ORDERED: HYDROMORPHONE 1 MG/1 ML DISP.SYRIN IM ONE
--- NOTE | 2022-02-09 03:18 | NUR ---
MIDLINE NOT AVAILABLE , UNABLE TO ADMINISTER MEDS
--- NOTE | 2022-02-09 03:25 | NUR ---
PHARMACY CALLED TO CANCEL ZOSYN ORDER DUE TO ALLERGY Addendum: 02/09/22 at 0327 by SUSAN UNABLE TO NON ADMIT
--- NOTE | 2022-02-09 05:30 | NUR ---
MACHINE STAKER AT PT'S BEDSIDE
[2022-02-09 05:49] LABS: BASOPHILS # (AUTO) 0.1 K/uL (0.0-0.2); BASOPHILS % (AUTO) 0.8 % (0.0-2.0); EOSINOPHILS % (AUTO) 7.7 % (0.0-6.0); HEMATOCRIT 37 % (33-45); HEMOGLOBIN 11.9 g/dL (11.5-14.8); LYMPHOCYTES # (AUTO) 2.6 K/uL (0.8-4.8); MEAN CORPUSCULAR HGB CONC 32 g/dl (31.0-36.0); MEAN CORPUSCULAR VOLUME 78 fL (82-100); MONOCYTES # (AUTO) 0.7 K/uL (0.1-1.30); MONOCYTES % (AUTO) 8.2 % (2.0-12.0); NEUTROPHILS # (AUTO) 4.3 K/uL (1.8-8.9); NEUTROPHILS % (AUTO) 52.3 % (43.0-81.0); PLATELET COUNT (AUTO) 402 K/uL (150-450); RED BLOOD CELL COUNT(AUTO) 4.72 MIL/uL (4.0-5.2); WHITE BLOOD COUNT (AUTO) 8.2 K/uL (4.3-11.0)
[2022-02-09 06:32] LABS: CREATININE 1.2 mg/dL (0.6-1.3); MAGNESIUM 2.3 mg/dL (1.8-2.4); PHOSPHORUS 2.9 mg/dL (2.5-4.9); POTASSIUM 3.5 mmol/L (3.5-5.1)
--- NOTE | 2022-02-09 07:15 | NUR ---
Received pt from DEE ochoa for telemetry bed and incertion of medline
[2022-02-09] MEDS ORDERED: MORPHINE SULFATE INJ 2 MG/ML DISP.SYRIN ONE (07:53)
[2022-02-09] MEDS ORDERED: MORPHINE SULFATE INJ 4 MG/ML DISP.SYRIN IM PRN (08:00)
[2022-02-09] MEDS ORDERED: MORPHINE SULFATE INJ 4 MG/ML DISP.SYRIN ONE (08:30)
--- NOTE | 2022-02-09 08:42 | NUR ---
HAND OFF DOMO RN TO ROOM 118-2 VIA GOKUL ochoa for midline nure to inserte
--- NOTE | 2022-02-09 08:45 | NUR ---
MANAGER BRANCH NOTES: PT CAME FROM ER ALERT AND ORIENTED X 3-4, NOT IN ANY DISTRESS.NO IV LINE, GUNTER CATHETER IN PLACE DRAINING YELLOW CLEAR URINE, BED LOCKED AND IN LOW POSITION, CALL LIGHT WITHIN REACH WILL MONITOR
[2022-02-09] MEDS ORDERED: CIPROFLOXACIN HCL 500 MG TABLET PO SCH (09:00)
[2022-02-09] MEDS ORDERED: METRONIDAZOLE 500 MG TABLET PO SCH (09:00)
[2022-02-09] MEDS ORDERED: ZOSYN IVPB 2.25 G in IV D5W 50ml IV SCH (09:00)
--- NOTE | 2022-02-09 09:00 | NUR ---
Haley mera in [place] - 02/09/22 at 0947 by LEEANNE PAITTO PRADO RN TO ROOM 320-1 VS STABLE
--- NOTE | 2022-02-09 09:30 | NUR ---
RN NOTES: DR ROJAS CALLED MADE AWARE PT HAS NO IV LINE WITH ORDER TO GIVE CIPRO 500 MG PO NOW AND FLAGYL 500 MG PO NOW AND TO FOLLOW UP WITH MIDLINE INSERTION, NURSE SLOT HOST MADE AWARE
[2022-02-09] MEDS: ONDANSETRON HCL/PF 4 MG/2 ML VIAL IVP PRN ×2 (09:45→21:01)
[2022-02-09] MEDS: IV NS 0.9% 1,000 ML IV ONE (10:14)
[2022-02-09] MEDS: PANTOPRAZOLE 40 MG VIAL IV SCH (10:14)
--- NOTE | 2022-02-09 11:06 | NUR ---
RN NOTES: CALLED AND SPOKE TO DR MCNEAL PT C/O OF ITCHING SO BAD WITH ORDER OF BENADRYL 50 MG IV EVERY 8 HOURS . ORDER NOTED AND CARRIED OUT
[2022-02-09 12:00] VITALS: BP 164/82
[2022-02-09] MEDS: diphenhydrAMINE HCL 50 MG/ML VIAL IV SCH ×2 (12:07→21:00)
[2022-02-09] MEDS: MORPHINE SULFATE INJ 2 MG/ML DISP.SYRIN IV PRN ×2 (12:42→18:56)
[2022-02-09 16:00] VITALS: BP 138/97
[2022-02-09] MEDS ORDERED: METRONIDAZOLE 500MG/ NS 100ML 500 MG in PREMIX 1 EA IV SCH ×3 (17:00)
--- NOTE | 2022-02-09 17:30 | NUR ---
RN NOTES: DR ROJAS CALLED WITH ORDER TO DC FLAGYL AND GIVE ZOSYN NOW, PLACE ORDER AND NOTIFIED PHARMACY
--- NOTE | 2022-02-09 18:33 | NUR ---
RN NOTES: LAB CALLED REPORTED MRSA NARES IS POSITIVE CALLED DR MCNEAL WITH ORDER TO START BACTROBAN OINTMENT
[2022-02-09] MEDS ORDERED: LEVOFLOXACIN 500 MG /D5W 100ML 500 MG in PREMIX 1 EA IV SCH (19:00)
[2022-02-09] MEDS: ZOSYN IVPB 2.25 G in IV D5W 50ml IV SCH (19:10)
--- NOTE | 2022-02-09 19:19 | NUR ---
LATE ENTRY DR. ROJAS SEEN AND EVALUATED PATIENT AT BEDSIDE PER MD START PT ON SCHEDULED ATIVAN PO SINCE PATIENT COMPLAIN SHE IS ALWAYS ANXIOUS.OK TO HAVE ICE CHIPS AND SIPS OF WATER FOR MEDS.
--- NOTE | 2022-02-09 19:20 | NUR ---
RN NOTES; PT IN BED AWAKE, ALERT AND ORIENTED WITH PERIODS OF CONFUSION FORGETFULNESS AND AGITATED, MORPHINE WAS GIVEN FOR PAIN AT 1900 , LEFT UPPER ARM MIDLINE INTACT AND PATENT, CONTINUE IV AT 125 ML/HR, PER DR ROJAS MAY HAVE ICE CHIPS, GUNTER CATHTER IN PLACE PATENT AND DRAINING YELLOW CLEAR URINE, BED REMAIN IN LOW AND LOCKED POSITION, CALL LIGHT WITHIN REACH,ENDORSED TO VEST BASTER RN FOR GIULIANA
[2022-02-09 20:00] VITALS: BP 149/78
--- NOTE | 2022-02-09 20:45 | NUR ---
RN NOTE PT APPEARS EXTREMELY ANXIOUS AND ASKS FOR ATIVAN. PT HAS ROUTINE ATIVAN SCHEDULED FOR MORNING. CONTACTED NA JENKINS, ORDERED ATIVAN 2 MG PO ONCE. ORDER OBTAINED AND CARRIED OUT.
[2022-02-09] MEDS: MUPIROCIN OINT 2% 22 GM TUBE NS SCH (21:00)
[2022-02-09] MEDS ORDERED: LORAZEPAM 1 MG TABLET PO ONE (21:00)
[2022-02-09] MEDS: CEFTRIAXONE 2 G in IV D5W 100 ML IV SCH (21:00)
[2022-02-09] MEDS: ENOXAPARIN SODIUM 40 MG/0.4 ML DISP.SYRIN SQ SCH (21:04)
--- NOTE | 2022-02-09 21:05 | NUR ---
RN NOTE PT NOTED TO BE VOMITING AND REPORTS OF FEELING NAUSEOUS. PT ADMINISTERED ZOFRAN 4 MG. WILL MONITOR FOR EFFECTIVENESS.
[2022-02-10] VITALS: BP 166/94
--- NOTE | 2022-02-10 01:20 | NUR ---
RN NOTE PT REPORTS OF DYSPEPSIA AND IS ALSO FOUND TO BE EVEN MORE RESTLESS AND SCREAMING. INFORMED ALICE AND RECEIVED ORDER FOR SEROQUEL 100 MG ONCE AND MAALOX 30 ML Q6H PRN. ORDERS CARRIED OUT.
[2022-02-10] MEDS: MORPHINE SULFATE INJ 2 MG/ML DISP.SYRIN IV PRN ×2 (01:23→21:37)
[2022-02-10] MEDS: ZOSYN IVPB 2.25 G in IV D5W 50ml IV SCH ×4 (01:24→17:10)
[2022-02-10] MEDS: IV NS 0.9% 1,000 ML IV PRN ×2 (01:24→11:14)
[2022-02-10] MEDS: MAG HYDROX/AL HYDROX/SIMETH 30 ML UDC PO PRN (01:24)
[2022-02-10] MEDS ORDERED: QUETIAPINE FUMARATE 100 MG TABLET PO ONE (01:30)
--- NOTE | 2022-02-10 03:21 | NUR ---
RN NOTE PT REFUSES HER BED BATH AND FOR HER LINENS TO BE CHANGED.
[2022-02-10 04:00] VITALS: BP 136/83
[2022-02-10] MEDS: diphenhydrAMINE HCL 50 MG/ML VIAL IV SCH ×3 (06:25→20:23)
--- NOTE | 2022-02-10 07:36 | NUR ---
ACCT EXEC CLOSING NOTE PT REMAINS IN BED, ASLEEP BUT EASILY AROUSABLE, A&O X2-3, RESTLESS. PT ON RA WITH O2SAT IN THE 90S; NO S/S OF RESP DISTRESS, NO SOB OR COUGH, NON-LABORED AND EQUAL BREATHING. PT ATTACHED TO EXTERNAL MONITOR SR. GUNTER INTACT AND PATENT, DRAINING CLEAR AND YELLOW URINE. NANCY MIDLINE 18G INTACT AND PATENT, FLUSHES EASILY WITH NO RESISTANCE, NS INFUSING AT 75 ML/HR. ALL DUE MEDS ADMINISTERED DURING THE NIGHT. BED IN LOWEST POSITION, CALL LIGHT WITHIN REACH, SIDE RAILS UP X3. WILL ENDORSE TO DAYSHIFT NURSE TO CONTINUE CARE.
--- NOTE | 2022-02-10 07:40 | NUR ---
RN NOTE RECEIVED PATIENT IN BED RESTING ALERT ORIENTED X2-3VERBALLY RESPONSIVE ON ROOM AIR O2:95% IV SITE IS ON LEFT UPPER ARM MIDLINE INTACT PATENT,NPO ON 125CC/HR NS IV HYDRATION,GUNTER CATH IN PLACE URINE DRAINING BY GRAVITY,SAFETY MEASURE IMPLEMENT BED IN LOW POSITION AND LOCKED,HEAD OF THE BED ELEVATED,CONTINUE TO MONITOR.
[2022-02-10 08:00] VITALS: BP 139/71
[2022-02-10] MEDS: LORAZEPAM 1 MG TABLET PO SCH ×2 (08:08→16:46)
[2022-02-10] MEDS: MUPIROCIN OINT 2% 22 GM TUBE NS SCH ×2 (08:09→20:22)
[2022-02-10] MEDS: PANTOPRAZOLE 40 MG VIAL IV SCH (08:09)
[2022-02-10] MEDS ORDERED: LEVOFLOXACIN 500 MG /D5W 100ML 500 MG in PREMIX 1 EA IV SCH (09:00)
[2022-02-10 12:00] VITALS: BP 138/72
[2022-02-10 16:00] VITALS: BP 146/81
--- NOTE | 2022-02-10 18:42 | NUR ---
RN NOTE PATIENT REMAINS ALERT ORIENTED X2-3 VERBALLY RESPONSIVE ON ROOM AIR O2:99% FULL LIQUID DIET,NO SOB NOT ACUTE DISTRESS NOTED GUNTER IN PLACE IV NS HYDRATION 125CC/HR,KEPT CLEAN AND DRY ALL THE TIME,KEPT COMFORTABLE ENDORSE NEXT COMING SHIFT FOR CONTINUATION OF CARE
[2022-02-10 19:39] LABS: CALCIUM, SERUM 8.1 mg/dL (8.5-10.1); CREATININE 1.3 mg/dL (0.6-1.3); POTASSIUM 3.2 mmol/L (3.5-5.1)
[2022-02-10 20:00] VITALS: BP 144/80
[2022-02-10] MEDS: METRONIDAZOLE 500 MG TABLET PO SCH (20:21)
[2022-02-10] MEDS: CEFTRIAXONE 2 G in IV D5W 100 ML IV SCH (20:21)
[2022-02-10] MEDS: ENOXAPARIN SODIUM 40 MG/0.4 ML DISP.SYRIN SQ SCH (20:22)
[2022-02-10] MEDS: POTASSIUM CL. PREMIX PERIPHER. 50 ML IV SCH ×2 (22:33→23:40)
[2022-02-11] VITALS: BP 138/75
[2022-02-11] MEDS ORDERED: LORAZEPAM 1 MG TABLET PO ONE (00:30)
[2022-02-11] MEDS: MAG HYDROX/AL HYDROX/SIMETH 30 ML UDC PO PRN (01:29)
[2022-02-11] MEDS: MORPHINE SULFATE INJ 2 MG/ML DISP.SYRIN IV PRN ×2 (03:15→13:59)
[2022-02-11 04:00] VITALS: BP 143/75
[2022-02-11] MEDS: diphenhydrAMINE HCL 50 MG/ML VIAL IV SCH (04:33)
[2022-02-11] MEDS: METRONIDAZOLE 500 MG TABLET PO SCH ×2 (04:33→13:12)
[2022-02-11 08:00] VITALS: BP 176/83
[2022-02-11] MEDS: LORAZEPAM 1 MG TABLET PO SCH (08:47)
[2022-02-11] MEDS: PANTOPRAZOLE 40 MG VIAL IV SCH (08:47)
[2022-02-11] MEDS: MUPIROCIN OINT 2% 22 GM TUBE NS SCH (08:48)
[2022-02-11] MEDS: ENSURE ENLIVE 237 ML LIQUID (VANILLA) PO SCH ×2 (08:48→13:03)
[2022-02-11] MEDS ORDERED: busPIRone 5 MG TABLET PO SCH (10:00)
[2022-02-11] MEDS ORDERED: QUETIAPINE FUMARATE 100 MG TABLET PO SCH (10:00)
[2022-02-11] MEDS ORDERED: BACLOFEN (10 MG) 10 MG TABLET PO SCH (10:00)
--- NOTE | 2022-02-11 10:26 | NUR ---
pet team at bedside evaluating pt. for psych admission.
[2022-02-11 12:00] VITALS: BP 129/56
[2022-02-11] MEDS ORDERED: LEVO500T90 PO (12:14)
[2022-02-11] MEDS ORDERED: METR500T PO (12:14)
--- NOTE | 2022-02-11 14:30 | NUR ---
RN CLOSING NOTES PATIENT TRANSFERRED TO PSYCH UNIT, BY ME AND JOSE VILLAR. REPORT GIVEN TO BERNICE MOSLEY. NANCY MIDLINE, GUNTER CATH, AND PHOTOGRAPHY PROFESSOR REMOVED BEFORE TRANSFER. 2 MG MORPHINE WAS GIVEN TO PATIENT AT 1300, PATIENT PAIN LEVEL WAS 8/10. PATIENT WAS ON ROOM AIR. BUT STABLE ALERT ORIENTED X2-3 WITH SOME EPISODES OF CONFUSION AND FORGETFULNESS.
[2022-02-11] MEDS ORDERED: Medication Not On Formulary EA (Melatonin 9 MG) PO SCH (22:00)
[2022-02-12] MEDS ORDERED: LEVOTHYROXINE SODIUM 50 MCG TABLET PO SCH (07:30)
[2022-02-12] MEDS ORDERED: Medication Not On Formulary EA (Lubiprostone (Amitiza) 24 MCG) PO SCH (09:00)
[2022-02-12] MEDS ORDERED: QUETIAPINE FUMARATE 100 MG TABLET PO SCH (12:30)
[2022-02-12] MEDS ORDERED: busPIRone 5 MG TABLET PO SCH (12:30)
== END 2022-02-11 14:01 | DRG 393 ==
LOC: ER 16:17 → MEDSG1 02-09 01:18 → TELE1 02-09 08:33
PROVIDERS: ADMIT Nurse Practitioner Acute Care; ATTEND Internal Medicine
PROC: 05HC33Z Insertion of Infusion Device into Left Basilic Vein, Percutaneous Approach (ICD-10-PCS; principal; 2022-02-09)
DX: K63.1 Perforation of intestine (nontraumatic) (principal); N17.0 Acute kidney failure with tubular necrosis; E44.0 Moderate protein-calorie malnutrition; D68.59 Other primary thrombophilia; J98.11 Atelectasis; Z20.822 Contact with and (suspected) exposure to COVID-19; I10 Essential (primary) hypertension; Z85.528 Personal history of other malignant neoplasm of kidney; Z98.890 Other specified postprocedural states; Z88.1 Allergy status to other antibiotic agents; Z79.899 Other long term (current) drug therapy; Z87.19 Personal history of other diseases of the digestive system; F29 Unspecified psychosis not due to a substance or known physiological condition; Z73.6 Limitation of activities due to disability; G62.9 Polyneuropathy, unspecified; Z90.49 Acquired absence of other specified parts of digestive tract; G89.29 Other chronic pain; M51.36 Other intervertebral disc degeneration, lumbar region; M19.90 Unspecified osteoarthritis, unspecified site; E66.01 Morbid (severe) obesity due to excess calories; Z87.440 Personal history of urinary (tract) infections; K66.8 Other specified disorders of peritoneum; K57.90 Diverticulosis of intestine, part unspecified, without perforation or abscess without bleeding; E87.6 Hypokalemia; F20.9 Schizophrenia, unspecified; F31.9 Bipolar disorder, unspecified; E88.09 Other disorders of plasma-protein metabolism, not elsewhere classified; N28.1 Cyst of kidney, acquired
CPT/HCPCS: 36410; 36415; 80048-TC; 80076-TC; 81001; 82962-TC; 83690-TC; 83735-TC; 84100-TC; 84484-TC; 85025-TC; 87040-TC; 87081-TC; 87086-TC; 97110-TC; 97112-TC; 97530-TC; A4216; C9113; C9803; G0378; J0696; J1170; J1200; J1650; J1956; J2270; J2405; J2543; J3480; J7030; J7050; J7060; Q0162

== ENCOUNTER 2022-02-11 14:14 | Inpatient (IN) | payer MEDICARE, OTHER ==
[~2022-02-11] VITALS: Ht 165.1 cm; Wt 104.3 kg
[~2022-02-11 14:14] MED LIST changes: +ACET-868 PO; -ACET650S11 RC; -ALLA266C2 TP; +BACL10TA PO; +BISA10SU11 RC; +BUSP5TAB3 PO; +DIPH25CA51 PO; +DOCU-141 PO; -ENOX40DI SQ; +HYDR-4303 PO; -HYDR1DIS2 IVP; +LEVO500T90 PO; +LEVO50TA8 PO; +LUBI24CA5 PO; -MAG30ORA PO; +MAGN400O6 PO; +MELA3TAB41 PO; +METR500T PO; +NA P133E RC; +NUT.237L67 PO; -NYST15PO4 TP; +NYST5ORA PO; +ONDA-97 PO; -ONDA4VIA52 IVP; +POLY17PO4 PO; +PSYL3.4P6 PO; +QUET100T PO; +SENN-261 PO; +SIME80TA15 PO; -THERAHONEY GEL TD; +TYL2T PO
--- NOTE | 2022-02-11 15:00 | NUR ---
RN-ADMISSION NOTES ROBERT STAFF BROUGHT IN THE PATIENT IN THE UNIT VIA HOSPITAL BED,AWAKE A/O X2 ,GUARDED,NO ACUTE DISTRESS NOTED. PATIENT ON 5150 HOLD FOR GD ADULT. UPON FACE TO FACE ASSESSMENT,PATIENT IS ANXIOUS FOCUSING ON GOING BACK TO GROUP HOME.DENIES SI/HI /AVH AT THIS TIME.REASSURED AND ORIENTED IN THE UNIT AND UNIT POLICIES. BOOKLET OF PATIENT'S RIGHT GIVEN .CONTRABAND AND BELONGINGS INVENTORIED. SKIN ASSESSMENT DONE. REFUSED MRSA SWAB STATED" I DON'T WANT MY NOSE TO BE TOUCH AGAIN". VITAL SIGN TAKEN AND ORIENTED IN THE ROOM, BOTH RAILS UP AND BED ALARM ACTIVATED. WIRE DRAWING MACHINE OPERATOR CONTACTED NANETTE LAZO @ [phone] AND LEFT A VOICE MESSAGE. ON THE ADMISSION.DR. JEAN ( PSYCHIATRIST) AND DR. MCNEAL ( FLATBED PRESS OPERATOR) AWARE OF THE ADMISSION.
[2022-02-11 15:13] VITALS: BP 149/70
[2022-02-11] MEDS ORDERED: BLOOD SUGAR DIAGNOSTIC 1 EACH STRIP IN ONE (15:30)
[2022-02-11] MEDS ORDERED: MAGNESIUM HYDROXIDE 30 ML UDC PO PRN (15:30)
[2022-02-11] MEDS: LORAZEPAM 0.5 MG TABLET PO PRN (15:45)
--- NOTE | 2022-02-11 15:54 | NUR ---
RN-NOTES PATIENT REQUESTING ATIVAN ,STATED" I NEED ATIVAN FOR MY ANXIETY". ATIVAN 1MG P.O GIVEN PRN ORDER. WILL CONT. MONITORING FOR SAFETY AND BEHAVIOR.
[2022-02-11 16:00] VITALS: BP 149/70
--- NOTE | 2022-02-11 16:55 | NUR ---
RN-NOTES PATIENT LYING IN BED AWAKE,ALERT,CALM,NO ACUTE DISTRESS NOTED.
[2022-02-11] MEDS ORDERED: ACETAMINOPHEN 325 MG TABLET PO PRN ×2 (17:00)
[2022-02-11] MEDS ORDERED: BISACODYL SUPP (10 MG) 10 MG/SUPP.RECT SUPP.RECT RC PRN (17:00)
[2022-02-11] MEDS: LORAZEPAM 1 MG TABLET PO SCH (17:00)
[2022-02-11] MEDS ORDERED: LORAZEPAM 1 MG TABLET PO SCH (17:00)
[2022-02-11] MEDS: DOCUSATE SODIUM 100 MG CAPSULE PO SCH (17:34)
[2022-02-11] MEDS: POLYETHYLENE GLYCOL 3350 17 GM POWD.PACK PO SCH (17:34)
[2022-02-11] MEDS: BACLOFEN (10 MG) 10 MG TABLET PO SCH (17:34)
[2022-02-11] MEDS: METRONIDAZOLE 500 MG TABLET PO SCH (17:34)
--- NOTE | 2022-02-11 17:35 | NUR ---
RN-NOTES ATIVAN 1MG P.O SCHEDULE @1700 NOT ADMINISTER, ATIVAN 1MG P.O PRN GIVEN AT 1545. CHARGE NURSE AWARE.
--- NOTE | 2022-02-11 18:52 | NUR ---
RN-NOTES PATIENT LYING IN BED AWAKE,A/O X2 GUARDED,NO ACUTE DISTRESS NOTED. NOTED WITH SCREAMING AND YELLING EPISODE, NEEDY AND DEMANDING. NEEDS MAXIMUM ASSIST WITH ADLS. ALL NEEDS ATTENDED AND ANTICIPATED. WILL CONT. MONITORING FOR SAFETY AND BEHAVIOR.WILL ENDORSE TO INCOMING NURSE FOR CONTINUITY OF CARE.
--- NOTE | 2022-02-11 19:30 | NUR ---
GPS RN NOTE, RECEIVED PATIENT AWAKE AND IN BED, NO S/S OR COMPLAINTS OF PAIN AT THIS TIME. PATIENT IS DISPLAYING NO S/S OF APPARENT DISTRESS AT THIS TIME. PATIENT BREATHING IS UNLABORED WITH EQUAL RISE AND FALL OF THE CHEST. PATIENT IS ALERT AND ORIENTED X 3 ON ROOM AIR WITH A SPO2 99%. PATIENT IS COMPLAINT WITH MEDICATIONS, YELLING AT TIMES, DEMANDING, DISORGANIZED, AND COOPERATIVE. PATIENT DENIES SUICIDAL AND HOMICIDAL IDEATIONS AT THIS TIME. PATIENT ASSISTED WITH TURNING AND REPOSITIONING Q2HR AND PRN FOR COMFORT AND CIRCULATION. PATIENT HAS NO NEEDS AT THIS TIME. PATIENT EDUCATED ON THE USE OF THE CALL DAVIS. PATIENT BED SIDE RAILS UP X 2 FOR SAFETY. PATIENT BED IS LOCKED, LOW, WITH BED ALARM ON. WILL CONTINUE TO MONITOR THIS PATIENT Q15 MINUTES WITH THE HELP OF STAFF TO MAINTAIN SAFETY.
[2022-02-11 20:01] VITALS: BP 120/47
[2022-02-11] MEDS: HYDROCODONE/APAP 5/325MG TABLET PO PRN (20:51)
--- NOTE | 2022-02-11 20:51 | NUR ---
GPS RN NOTE, PATIENT HAS A COMPLAINT OF GENERALIZED AT 8 OUT OF 10 ON THE PAIN SCALE AND IS REQUESTING NORCO AT THIS TIME. PATIENT VITAL SIGNS ARE STABLE. GAVE NORCO 5-325 1 TAB PO Q4HR PRN ORDERED. WILL REASSESS PAIN AND I WILL CONTINUE TO MONITOR THIS PATIENT WITH THE HELP OF STAFF.
[2022-02-11] MEDS: ACETAMINOPHEN 325 MG TABLET PO PRN (20:52)
--- NOTE | 2022-02-11 20:52 | NUR ---
GPS RN NOTE, PATIENT HAS A COMPLAINT OF HEADACHE AT 2 OUT OF 10 ON THE PAIN SCALE AND IS REQUESTING TYLENOL AT THIS TIME. PATIENT VITAL SIGNS ARE STABLE. GAVE TYLENOL 650MG PO Q6HR PRN ORDERED. WILL REASSESS PAIN AND I WILL CONTINUE TO MONITOR THIS PATIENT WITH THE HELP OF STAFF.
[2022-02-11] MEDS: SENNOSIDES 8.6 MG TABLET PO SCH (22:18)
[2022-02-12] MEDS: LORAZEPAM 0.5 MG TABLET PO PRN (05:15)
--- NOTE | 2022-02-12 05:15 | NUR ---
GPS RN NOTE, PATIENT HAS A COMPLAINT OF FEELING ANXIOUS AND IS REQUESTING ATIVAN AT THIS TIME. PATIENT VITAL SIGNS ARE STABLE. GAVE ATIVAN 1MG PO Q6HR PRN ORDERED. WILL REASSESS FOR ANXIETY AND I WILL CONTINUE TO MONITOR THIS PATIENT WITH THE HELP OF STAFF.
[2022-02-12 08:00] VITALS: BP 158/74
[2022-02-12] MEDS: Z GUARD REMEDY 4 OZ OINT TP SCH ×2 (08:13→16:19)
[2022-02-12] MEDS: POLYETHYLENE GLYCOL 3350 17 GM POWD.PACK PO SCH ×2 (08:17→16:18)
[2022-02-12] MEDS: DOCUSATE SODIUM 100 MG CAPSULE PO SCH ×2 (08:18→16:18)
[2022-02-12] MEDS: BACLOFEN (10 MG) 10 MG TABLET PO SCH ×2 (08:18→16:31)
[2022-02-12] MEDS: LEVOTHYROXINE SODIUM 50 MCG TABLET PO SCH (08:18)
[2022-02-12] MEDS: LEVOFLOXACIN (500MG) 500 MG TABLET PO SCH (08:18)
[2022-02-12] MEDS: PANTOPRAZOLE 40 MG TABLET.DR PO SCH (08:18)
[2022-02-12] MEDS: LORAZEPAM 1 MG TABLET PO SCH ×2 (08:18→16:34)
[2022-02-12] MEDS: METRONIDAZOLE 500 MG TABLET PO SCH ×3 (08:18→16:31)
[2022-02-12] MEDS: MAG HYDROX/AL HYDROX/SIMETH 30 ML UDC PO PRN ×3 (09:26→20:38)
[2022-02-12] MEDS: HYDROCODONE/APAP 5/325MG TABLET PO PRN ×3 (09:26→20:39)
[2022-02-12] MEDS: busPIRone 5 MG TABLET PO SCH ×2 (13:35→21:27)
[2022-02-12] MEDS: QUETIAPINE FUMARATE 100 MG TABLET PO SCH ×2 (13:35→21:27)
[2022-02-12 16:00] VITALS: BP 151/69
[2022-02-12] MEDS: SIMETHICONE 80 MG TAB.CHEW PO PRN (16:59)
--- NOTE | 2022-02-12 19:30 | NUR ---
GPS RN NOTE, RECEIVED PATIENT AWAKE AND IN BED, PATIENT HAS A C/O GENERALIZED PAIN AT 8 OUT OF 10 ON THE PAIN SCALE AT THIS TIME. PATIENT IS TAKING PAIN MEDICATION FOR THIS PAIN. PATIENT IS DISPLAYING NO S/S OF APPARENT DISTRESS AT THIS TIME. PATIENT BREATHING IS UNLABORED WITH EQUAL RISE AND FALL OF THE CHEST. PATIENT IS ALERT AND ORIENTED X 3 ON ROOM AIR WITH A SPO2 96%. PATIENT IS COMPLAINT WITH MEDICATIONS, YELLING AT TIMES, DEMANDING, DISORGANIZED, AND COOPERATIVE. PATIENT DENIES SUICIDAL AND HOMICIDAL IDEATIONS AT THIS TIME. PATIENT ASSISTED WITH TURNING AND REPOSITIONING Q2HR AND PRN FOR COMFORT AND CIRCULATION. PATIENT HAS NO NEEDS AT THIS TIME. PATIENT EDUCATED ON THE USE OF THE CALL DAVIS. PATIENT BED SIDE RAILS UP X 2 FOR SAFETY. PATIENT BED IS LOCKED, LOW, WITH BED ALARM ON. WILL CONTINUE TO MONITOR THIS PATIENT Q15 MINUTES WITH THE HELP OF STAFF TO MAINTAIN SAFETY.
[2022-02-12 20:00] VITALS: BP 140/68
--- NOTE | 2022-02-12 20:21 | NUR ---
GPS RN NOTE, PATIENT HAS A COMPLAINT OF NAUSEA AND IS REQUESTING ZOFRAN AT THIS TIME. PATIENT VITAL SIGNS ARE STABLE. PAGED [facility] AND INFORMED NA JENKINS DNP OF MY FINDINGS. NA JENKINS DNP GAVE ORDER FOR ZOFRAN ODT 4MG PO Q6HR PRN. ALL ORDERS NOTED AND CARRIED OUT. WILL CONTINUE TO MONITOR THIS PATIENT WITH THE HELP OF STAFF.
[2022-02-12] MEDS: ONDANSETRON 4 MG TAB.RAPDIS PO PRN (20:38)
--- NOTE | 2022-02-12 20:38 | NUR ---
GPS RN NOTE, PATIENT HAS A COMPLAINT OF INDIGESTION AND IS REQUESTING MAALOX AT THIS TIME. PATIENT VITAL SIGNS ARE STABLE. GAVE MAALOX 30ML 1 UNIT DOSE Q4HR PRN ORDERED. WILL REASSESS FOR INDIGESTION AND I WILL CONTINUE TO MONITOR THIS PATIENT WITH THE HELP OF STAFF.
--- NOTE | 2022-02-12 20:38 | NUR ---
GPS RN NOTE, PATIENT HAS A COMPLAINT OF NAUSEA AND IS REQUESTING ZOFRAN AT THIS TIME. PATIENT VITAL SIGNS ARE STABLE. GAVE ZOFRAN ODT 4MG PO Q6HR PRN ORDERED. WILL REASSESS FOR NAUSEA AND I WILL CONTINUE TO MONITOR THIS PATIENT WITH THE HELP OF STAFF.
[2022-02-12] MEDS: ACETAMINOPHEN 325 MG TABLET PO PRN (20:39)
[2022-02-12] MEDS: SENNOSIDES 8.6 MG TABLET PO SCH (21:50)
--- NOTE | 2022-02-12 21:50 | NUR ---
GPS RN NOTE, PATIENT REFUSED SENNA. PATIENT HAS A BEEN HAS HAD TWO EPISODES OF DIARRHEA AND STATES, " I HAVE BEEN HAVING DIARRHEA WHY WOULD I TAKE A LAXATIVE. EDUCATED PATIENT ON THE RISKS AND BENEFITS OF TAKING AND REFUSING SENNA. WILL CONTINUE TO MONITOR THIS PATIENT WITH THE HELP OF STAFF.
--- NOTE | 2022-02-13 06:45 | NUR ---
GPS RN NOTE, PATIENT REFUSED TO BE CLEANED AND CHANGED. OFFERED THREE TIMES AND STILL PATIENT REFUSED STATING, " NO IT'S TO COLD, LEAVE ME ALONE, AND I WILL ALLOW IT LATER ". EDUCATED PATIENT ON PROPER HYGIENE. WILL ENDORSE TO A.M. SHIFT NURSE THAT PATIENT NEEDS TO BE CLEANED AND CHANGED. WILL CONTINUE TO MONITOR THIS PATIENT WITH THE HELP OF STAFF.
[2022-02-13 08:00] VITALS: BP 152/75
[2022-02-13] MEDS: POLYETHYLENE GLYCOL 3350 17 GM POWD.PACK PO SCH ×3 (08:18→17:00)
[2022-02-13] MEDS: PANTOPRAZOLE 40 MG TABLET.DR PO SCH (08:18)
[2022-02-13] MEDS: LORAZEPAM 1 MG TABLET PO SCH ×2 (08:18→17:24)
[2022-02-13] MEDS: LEVOTHYROXINE SODIUM 50 MCG TABLET PO SCH (08:18)
[2022-02-13] MEDS: LEVOFLOXACIN (500MG) 500 MG TABLET PO SCH (08:18)
[2022-02-13] MEDS: METRONIDAZOLE 500 MG TABLET PO SCH ×3 (08:18→17:25)
[2022-02-13] MEDS: QUETIAPINE FUMARATE 100 MG TABLET PO SCH ×2 (08:19→21:37)
[2022-02-13] MEDS: DOCUSATE SODIUM 100 MG CAPSULE PO SCH ×3 (08:19→17:00)
[2022-02-13] MEDS: busPIRone 5 MG TABLET PO SCH ×2 (08:19→21:37)
[2022-02-13] MEDS: BACLOFEN (10 MG) 10 MG TABLET PO SCH ×2 (08:19→17:25)
[2022-02-13] MEDS: Z GUARD REMEDY 4 OZ OINT TP SCH ×2 (08:20→17:25)
[2022-02-13] MEDS: MAG HYDROX/AL HYDROX/SIMETH 30 ML UDC PO PRN ×3 (10:12→22:19)
[2022-02-13] MEDS: AMLODIPINE BESYLATE 5 MG TABLET PO SCH (11:24)
[2022-02-13] MEDS: LORAZEPAM 0.5 MG TABLET PO PRN (12:32)
--- NOTE | 2022-02-13 12:32 | NUR ---
NURSE NOTE: PT ANXIOUS AT THIS TIME. REQUESTED ATIVAN AT THIS TIME. ATIVAN ADMINISTERED ORDERED. WILL CONT TO MONITOR.
[2022-02-13] MEDS: diphenhydrAMINE HCL 25 MG CAPSULE PO PRN (13:07)
--- NOTE | 2022-02-13 13:07 | NUR ---
NURSE NOTE: PT ITCHY, REDNESS TO CHEEKS AND ARM. BENADRYL ADMINISTERED ORDERED. PT SOILA WELL. WILL CONT TO MONITOR.
[2022-02-13] MEDS: HYDROCODONE/APAP 5/325MG TABLET PO PRN ×2 (13:32→22:49)
--- NOTE | 2022-02-13 13:32 | NUR ---
NURSE NOTE: PT STILL ANXIOUS AND IN PAIN. PAIN LEVEL 9/10, CRYING AND MOANING. REQUESTED NORCO. NORCO ADMINISTERED ORDERED. PT SOILA WELL. WILL CONT TO MONITOR.
--- NOTE | 2022-02-13 14:30 | NUR ---
NURSE NOTE: PT SLEEPING. NO S/S OF PAIN OR ANXIETY. MED EFFECTIVE AT THIS TIME. WILL CONT TO MONITOR.
[2022-02-13 16:00] VITALS: BP 150/73
[2022-02-13 20:16] VITALS: BP 143/86
[2022-02-13] MEDS: SENNOSIDES 8.6 MG TABLET PO SCH (21:37)
[2022-02-14] MEDS: LEVOTHYROXINE SODIUM 50 MCG TABLET PO SCH (07:50)
[2022-02-14] MEDS: PANTOPRAZOLE 40 MG TABLET.DR PO SCH (07:50)
[2022-02-14 08:00] VITALS: BP 156/91
[2022-02-14] MEDS: METRONIDAZOLE 500 MG TABLET PO SCH ×3 (08:41→17:27)
[2022-02-14] MEDS: LORAZEPAM 1 MG TABLET PO SCH ×2 (08:41→17:27)
[2022-02-14] MEDS: busPIRone 5 MG TABLET PO SCH ×2 (08:41→21:33)
[2022-02-14] MEDS: QUETIAPINE FUMARATE 100 MG TABLET PO SCH ×2 (08:41→21:33)
[2022-02-14] MEDS: LEVOFLOXACIN (500MG) 500 MG TABLET PO SCH (08:41)
[2022-02-14] MEDS: POLYETHYLENE GLYCOL 3350 17 GM POWD.PACK PO SCH ×2 (08:42→17:00)
[2022-02-14] MEDS: Z GUARD REMEDY 4 OZ OINT TP SCH ×2 (08:42→17:28)
[2022-02-14] MEDS: AMLODIPINE BESYLATE 5 MG TABLET PO SCH (08:42)
[2022-02-14] MEDS: DOCUSATE SODIUM 100 MG CAPSULE PO SCH ×2 (08:42→17:00)
[2022-02-14] MEDS: BACLOFEN (10 MG) 10 MG TABLET PO SCH ×2 (08:42→17:27)
--- NOTE | 2022-02-14 12:06 | NUR ---
NANNETTE Initial Discharge Note: Patient currently resides at [facility] [place] [address]; . NANNETTE spoke with Michael Grant who stated that pt is welcomed back. NANNETTE will work with the MD, treatment team, and pt to help coordinate appropriate discharge.
--- NOTE | 2022-02-14 12:06 | NUR ---
Treatment Plan: Pt refused to sign and was suspicious.
--- NOTE | 2022-02-14 12:06 | NUR ---
NANNETTE Clinical Note: Pt placed on a 5150 hold for GD. Pt was agitated and was yelling at her facility. Patient currently resides at [address] [address]; . NANNETTE spoke with Michael Grant who stated that pt is welcomed back.
[2022-02-14] MEDS: HYDROCODONE/APAP 5/325MG TABLET PO PRN ×2 (12:07→22:54)
--- NOTE | 2022-02-14 12:07 | NUR ---
NURSE NOTE: PT C/O PAIN AT LEVEL 9/10. NORCO ADMINISTERED ORDERED. PT SOILA WELL. WILL CONT TO MONITOR.
--- NOTE | 2022-02-14 13:00 | NUR ---
NURSE NOTE: PT SLEEPING AT THIS TIME. NO S/S OF PAIN NOTED. WILL CONT TO MONITOR.
--- NOTE | 2022-02-14 13:10 | NUR ---
NANNETTE Family Contact: NANNETTE attempted to contact lens molder to notify Nicole ([phone]) and left a detailed voicemail.
[2022-02-14] MEDS: SIMETHICONE 80 MG TAB.CHEW PO PRN (13:11)
[2022-02-14 16:00] VITALS: BP 143/90
[2022-02-14] MEDS: ONDANSETRON 4 MG TAB.RAPDIS PO PRN (16:33)
--- NOTE | 2022-02-14 16:33 | NUR ---
NURSE NOTE: PT C/O NAUSEA. REQUESTED ZOFRAN AT THIS TIME. WILL CONT TO MONITOR.
[2022-02-14] MEDS: MAG HYDROX/AL HYDROX/SIMETH 30 ML UDC PO PRN (16:59)
--- NOTE | 2022-02-14 17:30 | NUR ---
NURSE NOTE: PT STATED THAT ZOFRAN HELPED. NOT FEELING NAUSEOUS ANYMORE. WILL CONT TO MONITOR.
[2022-02-14 19:38] VITALS: BP 160/80
[2022-02-14] MEDS: SENNOSIDES 8.6 MG TABLET PO SCH (21:33)
[2022-02-14] MEDS: TEMAZEPAM 7.5 MG CAPSULE PO PRN (21:34)
[2022-02-14] MEDS: BENZONATATE 100 MG CAPSULE PO PRN (21:34)
[2022-02-14] MEDS: LORAZEPAM 0.5 MG TABLET PO PRN (22:33)
[2022-02-15] MEDS: PANTOPRAZOLE 40 MG TABLET.DR PO SCH (07:50)
[2022-02-15] MEDS: LEVOTHYROXINE SODIUM 50 MCG TABLET PO SCH (07:50)
[2022-02-15 08:00] VITALS: BP 153/76
--- NOTE | 2022-02-15 08:17 | NUR ---
WOUND CARE CONSULT: PT REFUSED SKIN ASSESSMENT. REVIEWED CHART, NURSING DOCUMENTATION AND PHOTOS WHICH INDICATE REDNESS/RASHES TO SKIN FOLDS AND BUTTOCKS, PRESENT ON ADMISSION. RECOMMENDATIONS MADE FOR SKIN PROTECTION. DISCUSSED WITH NURSING STAFF. MD IN AGREEMENT WITH PLAN OF CARE.
[2022-02-15] MEDS: LORAZEPAM 1 MG TABLET PO SCH ×2 (09:00→16:24)
[2022-02-15] MEDS: Z GUARD REMEDY 4 OZ OINT TP SCH ×2 (09:00→16:13)
[2022-02-15] MEDS: CLOTRIMAZOLE 1% 15 GM TUBE TP SCH ×2 (09:00→16:14)
[2022-02-15] MEDS: LORAZEPAM 0.5 MG TABLET PO PRN ×6 (09:57→16:23)
[2022-02-15] MEDS: METRONIDAZOLE 500 MG TABLET PO SCH ×3 (09:57→16:11)
[2022-02-15] MEDS: LEVOFLOXACIN (500MG) 500 MG TABLET PO SCH (09:58)
[2022-02-15] MEDS: BACLOFEN (10 MG) 10 MG TABLET PO SCH ×2 (09:58→16:12)
[2022-02-15] MEDS: AMLODIPINE BESYLATE 5 MG TABLET PO SCH (09:58)
[2022-02-15] MEDS: DOCUSATE SODIUM 100 MG CAPSULE PO SCH ×2 (09:58→16:12)
[2022-02-15] MEDS: QUETIAPINE FUMARATE 100 MG TABLET PO SCH ×2 (09:59→21:00)
[2022-02-15] MEDS: POLYETHYLENE GLYCOL 3350 17 GM POWD.PACK PO SCH ×2 (09:59→16:11)
[2022-02-15] MEDS: QUETIAPINE FUMARATE 25 MG TABLET PO SCH (13:30)
[2022-02-15 16:00] VITALS: BP 148/79
[2022-02-15] MEDS: HYDROCODONE/APAP 5/325MG TABLET PO PRN (17:47)
[2022-02-15 19:27] VITALS: BP 134/63
[2022-02-15] MEDS: SENNOSIDES 8.6 MG TABLET PO SCH (21:54)
[2022-02-15] MEDS: busPIRone 5 MG TABLET PO SCH (21:56)
--- NOTE | 2022-02-15 21:59 | NUR ---
Pt refused medication Seroquel 100 mg 1 tab @ 2100. Explained risk and benefits and offered x3. Still refused. Pt states, "I dont need that medication right now." Will continue to monitor.
[2022-02-16] MEDS: MAG HYDROX/AL HYDROX/SIMETH 30 ML UDC PO PRN (00:28)
[2022-02-16] MEDS: LORAZEPAM 0.5 MG TABLET PO PRN ×2 (00:28→23:08)
[2022-02-16] MEDS: HYDROCODONE/APAP 5/325MG TABLET PO PRN ×2 (00:34→12:38)
--- NOTE | 2022-02-16 00:35 | NUR ---
Pt c/o anxiety. Least restrictive measures ineffective. Ativan 1 mg po prn given as ordered. Pt c/o back pain 10/17. [place] 1 tab prn given as ordered. Will continue to monitor.
--- NOTE | 2022-02-16 01:35 | NUR ---
Post 1 hr Ativan effective. Pt is calm in bed. Post 1 hr [place] effective. TN 0/10. Will continue to monitor.
[2022-02-16] MEDS: TEMAZEPAM 7.5 MG CAPSULE PO PRN (01:52)
[2022-02-16] MEDS: ONDANSETRON 4 MG TAB.RAPDIS PO PRN (01:53)
--- NOTE | 2022-02-16 01:53 | NUR ---
Pt c/o insomnia. Least restrictive measures ineffective. Restoril 7.5 mg po prn given as ordered. Pt c/o nausea without vomiting. Requested for Zofran 4 mg po prn. Will continue to monitor.
--- NOTE | 2022-02-16 03:00 | NUR ---
Post 1 hr Restoril and Zofran effective. Pt asleep in bed easy to arouse. No more c/o nausea. No vomiting noted. Frequent visual check done for safety. Will continue to monitor.
[2022-02-16 08:00] VITALS: BP 156/80
[2022-02-16] MEDS: PANTOPRAZOLE 40 MG TABLET.DR PO SCH (08:10)
[2022-02-16] MEDS: LEVOTHYROXINE SODIUM 50 MCG TABLET PO SCH (08:10)
[2022-02-16] MEDS: METRONIDAZOLE 500 MG TABLET PO SCH ×3 (08:41→17:22)
[2022-02-16] MEDS: busPIRone 5 MG TABLET PO SCH ×3 (08:41→17:22)
[2022-02-16] MEDS: LORAZEPAM 1 MG TABLET PO SCH ×2 (08:41→17:22)
[2022-02-16] MEDS: AMLODIPINE BESYLATE 5 MG TABLET PO SCH (08:41)
[2022-02-16] MEDS: QUETIAPINE FUMARATE 100 MG TABLET PO SCH ×2 (08:41→21:18)
[2022-02-16] MEDS: BACLOFEN (10 MG) 10 MG TABLET PO SCH ×2 (08:41→17:22)
[2022-02-16] MEDS: DOCUSATE SODIUM 100 MG CAPSULE PO SCH ×2 (08:42→17:00)
[2022-02-16] MEDS: Z GUARD REMEDY 4 OZ OINT TP SCH ×2 (08:42→17:23)
[2022-02-16] MEDS: CLOTRIMAZOLE 1% 15 GM TUBE TP SCH ×2 (08:42→17:22)
[2022-02-16] MEDS: POLYETHYLENE GLYCOL 3350 17 GM POWD.PACK PO SCH ×2 (08:42→17:00)
[2022-02-16] MEDS: LEVOFLOXACIN (500MG) 500 MG TABLET PO SCH (08:42)
--- NOTE | 2022-02-16 12:05 | NUR ---
Court Hearing: Patient's court hearing for 1660 was today and it was upheld for GD.
--- NOTE | 2022-02-16 12:05 | NUR ---
Court Notification: SW does not have any supportive contact at this time.
[2022-02-16] MEDS: QUETIAPINE FUMARATE 25 MG TABLET PO SCH (12:17)
--- NOTE | 2022-02-16 13:40 | NUR ---
NURSE NOTE: PT C/O PAIN TO LEGS/BACK AT THIS TIME. LEVEL9/10. NORCO ADMINISTERED ORDERED. PT SOILA WELL. WILL CONT TO MONITOR.
--- NOTE | 2022-02-16 14:40 | NUR ---
NURSE NOTE: PT SLEEPING AT THIS TIME. NO S/S OF PAIN. NORCO EFFECTIVE AT THIS TIME. WILL CONT TO MONITOR.
[2022-02-16] MEDS: SIMETHICONE 80 MG TAB.CHEW PO PRN (16:11)
[2022-02-16 16:25] VITALS: BP 122/69
[2022-02-16] MEDS: GABAPENTIN 100 MG CAPSULE PO SCH (17:22)
[2022-02-16 20:07] VITALS: BP 106/45
--- NOTE | 2022-02-16 20:17 | NUR ---
RN NOTES; RECEIVED PT IN BED SLEEPING BUT EASY TO AROUSED,ON RM AIR SOILA WELL,AOX2.NO SOB/DISTRESS NOTED,NO COMPLAIN OF PAIN/DISCOMFORT,SAFETY MEASURE IN PLACE,NO BEHAVIORAL CHANGES AT THIS TIME,WILL CONTINUE TO MONITOR.
[2022-02-16] MEDS: SENNOSIDES 8.6 MG TABLET PO SCH (21:18)
[2022-02-16] MEDS: diphenhydrAMINE HCL 25 MG CAPSULE PO PRN (23:08)
[2022-02-17] MEDS: HYDROCODONE/APAP 5/325MG TABLET PO PRN ×3 (00:32→22:09)
--- NOTE | 2022-02-17 00:35 | NUR ---
RN NOTES; PT COMPLAINED OF GEN,BODY PAIN 10/17.PRN MEDS NORCO 5-325MG WAS GIVEN.
[2022-02-17 08:00] VITALS: BP 148/74
[2022-02-17] MEDS: PANTOPRAZOLE 40 MG TABLET.DR PO SCH (09:42)
[2022-02-17] MEDS: LEVOTHYROXINE SODIUM 50 MCG TABLET PO SCH (09:42)
[2022-02-17] MEDS: METRONIDAZOLE 500 MG TABLET PO SCH ×3 (09:42→17:05)
[2022-02-17] MEDS: POLYETHYLENE GLYCOL 3350 17 GM POWD.PACK PO SCH ×2 (09:42→17:00)
[2022-02-17] MEDS: BACLOFEN (10 MG) 10 MG TABLET PO SCH ×2 (09:42→17:05)
[2022-02-17] MEDS: GABAPENTIN 100 MG CAPSULE PO SCH ×4 (09:42→17:00)
[2022-02-17] MEDS: LEVOFLOXACIN (500MG) 500 MG TABLET PO SCH (09:42)
[2022-02-17] MEDS: DOCUSATE SODIUM 100 MG CAPSULE PO SCH ×2 (09:43→17:00)
[2022-02-17] MEDS: AMLODIPINE BESYLATE 5 MG TABLET PO SCH (09:43)
[2022-02-17] MEDS: busPIRone 5 MG TABLET PO SCH ×3 (09:43→17:05)
[2022-02-17] MEDS: QUETIAPINE FUMARATE 100 MG TABLET PO SCH ×2 (09:47→20:50)
[2022-02-17] MEDS: LORAZEPAM 1 MG TABLET PO SCH ×2 (09:47→17:44)
[2022-02-17] MEDS: Z GUARD REMEDY 4 OZ OINT TP SCH ×2 (09:53→17:07)
[2022-02-17] MEDS: CLOTRIMAZOLE 1% 15 GM TUBE TP SCH ×2 (09:53→17:07)
[2022-02-17] MEDS: MAG HYDROX/AL HYDROX/SIMETH 30 ML UDC PO PRN (12:27)
[2022-02-17] MEDS: QUETIAPINE FUMARATE 25 MG TABLET PO SCH (12:28)
[2022-02-17] MEDS: BENZONATATE 100 MG CAPSULE PO PRN (12:51)
[2022-02-17 16:00] VITALS: BP 137/72
[2022-02-17] MEDS: ACETAMINOPHEN 325 MG TABLET PO PRN (17:05)
--- NOTE | 2022-02-17 18:37 | NUR ---
GPS/RN NOTE Patient in bed, resting. No SOB or s/s of distress noted. Patient was compliant with medications. States that she wants to go back to her facility because her is waiting for her there. Patient would occasionally scream and ask for nurse; needy and sometimes demanding. Will continue to monitor until change of shift.
--- NOTE | 2022-02-17 20:33 | NUR ---
RN NOTES: PATIENT RESTING IN HER ROOM, NO S/SX OF ACUTE DISTRESS NOTED. PATIENT EASILY AGITATED, DISORGANIZED, NEEDY DEMENDING, PARANOID,HYPERVERVAL, PARANOID, NEEDS FREQUENT REDIRECTION. FOCUS ON MEDS,ASSISTED WITH ADLS, TURNING AND REPOSTIONING DENIES SI/HI AT THIS TIME.ENCOURAGE TO VERBALIZED ANY FEELING OR CONCERN, SAFETY MEASURES IN PLACE. WILL CONTINUE TO MONITOR Q15MIN ROUNDS FOR SAFETY AND BEHAVIOR.
[2022-02-17 21:02] VITALS: BP 132/61
[2022-02-17] MEDS: SENNOSIDES 8.6 MG TABLET PO SCH (21:42)
--- NOTE | 2022-02-17 21:43 | NUR ---
RN NOTES: PT. REFUSED PO SENNA -LAX 8.6 , PER PT. I NO NEEDED TO TAKE , I HAD NORMAL BOWEL MOVEMNTS, PT. STRONGLY REFUSED.
[2022-02-18] MEDS: TEMAZEPAM 7.5 MG CAPSULE PO PRN (00:41)
--- NOTE | 2022-02-18 00:43 | NUR ---
RN NOTES: INSOMNIA PT. C/O UNABLE TO SLEEP , PRN RESTORIL 7.5 MG PO GIVEN PER PT. REQUEST , WILL CONTINUE TO MONITOR.
[2022-02-18 08:00] VITALS: BP 140/86
[2022-02-18] MEDS: POLYETHYLENE GLYCOL 3350 17 GM POWD.PACK PO SCH ×2 (08:51→17:00)
[2022-02-18] MEDS: Z GUARD REMEDY 4 OZ OINT TP SCH ×2 (08:53→18:00)
[2022-02-18] MEDS: DOCUSATE SODIUM 100 MG CAPSULE PO SCH ×2 (09:10→17:00)
[2022-02-18] MEDS: LEVOFLOXACIN (500MG) 500 MG TABLET PO SCH (09:10)
[2022-02-18] MEDS: PANTOPRAZOLE 40 MG TABLET.DR PO SCH (09:10)
[2022-02-18] MEDS: QUETIAPINE FUMARATE 100 MG TABLET PO SCH ×2 (09:10→21:51)
[2022-02-18] MEDS: METRONIDAZOLE 500 MG TABLET PO SCH ×3 (09:10→17:00)
[2022-02-18] MEDS: busPIRone 5 MG TABLET PO SCH ×3 (09:10→17:00)
[2022-02-18] MEDS: BACLOFEN (10 MG) 10 MG TABLET PO SCH ×2 (09:10→17:00)
[2022-02-18] MEDS: GABAPENTIN 100 MG CAPSULE PO SCH ×3 (09:10→17:00)
[2022-02-18] MEDS: LORAZEPAM 1 MG TABLET PO SCH (09:10)
[2022-02-18] MEDS: AMLODIPINE BESYLATE 5 MG TABLET PO SCH (09:11)
[2022-02-18] MEDS: LEVOTHYROXINE SODIUM 50 MCG TABLET PO SCH (09:12)
[2022-02-18] MEDS: CLOTRIMAZOLE 1% 15 GM TUBE TP SCH ×2 (09:18→18:00)
[2022-02-18] MEDS: ONDANSETRON 4 MG TAB.RAPDIS PO PRN (09:22)
[2022-02-18] MEDS: MAG HYDROX/AL HYDROX/SIMETH 30 ML UDC PO PRN (11:42)
[2022-02-18] MEDS: QUETIAPINE FUMARATE 25 MG TABLET PO SCH (13:11)
[2022-02-18 16:00] VITALS: BP 136/84
[2022-02-18] MEDS: LORAZEPAM 0.5 MG TABLET PO SCH (16:29)
[2022-02-18] MEDS: HYDROCODONE/APAP 5/325MG TABLET PO PRN (17:35)
--- NOTE | 2022-02-18 17:52 | NUR ---
GPS/RN PT REFUSED PO MEDS EXCEPT ATIVAN AND NORCO
[2022-02-18 20:00] VITALS: BP 129/68
[2022-02-18] MEDS: SENNOSIDES 8.6 MG TABLET PO SCH (21:50)
[2022-02-19] MEDS: TEMAZEPAM 7.5 MG CAPSULE PO PRN (01:29)
--- NOTE | 2022-02-19 01:29 | NUR ---
RN NOTES: PT. C/O UNABLE TO SLEEP , PRN RESTORIL 7.5 MG PO GIVEN PER PT. REQUEST , WILL CONTINUE TO MONITOR.
[2022-02-19] MEDS: HYDROCODONE/APAP 5/325MG TABLET PO PRN ×3 (03:25→18:34)
--- NOTE | 2022-02-19 03:28 | NUR ---
RN NOTES: PAIN PT. C/O GENERALIZED BODY PAIN 10/17 , NARCO 5/325 GIVEN, PER PT. REQUEST, WILL CONTINUE TO MONITOR.
[2022-02-19] MEDS: DOCUSATE SODIUM 100 MG CAPSULE PO SCH ×2 (07:50→16:07)
[2022-02-19] MEDS: GABAPENTIN 100 MG CAPSULE PO SCH ×3 (07:50→16:07)
[2022-02-19] MEDS: LEVOTHYROXINE SODIUM 50 MCG TABLET PO SCH (07:50)
[2022-02-19] MEDS: BACLOFEN (10 MG) 10 MG TABLET PO SCH ×2 (07:50→16:07)
[2022-02-19] MEDS: METRONIDAZOLE 500 MG TABLET PO SCH ×2 (07:50→12:04)
[2022-02-19] MEDS: QUETIAPINE FUMARATE 25 MG TABLET PO SCH ×2 (07:50→12:04)
[2022-02-19] MEDS: LORAZEPAM 0.5 MG TABLET PO SCH ×2 (07:51→16:07)
[2022-02-19] MEDS: AMLODIPINE BESYLATE 5 MG TABLET PO SCH (07:51)
[2022-02-19] MEDS: PANTOPRAZOLE 40 MG TABLET.DR PO SCH (07:51)
[2022-02-19] MEDS: busPIRone 5 MG TABLET PO SCH ×3 (07:51→16:07)
[2022-02-19] MEDS: POLYETHYLENE GLYCOL 3350 17 GM POWD.PACK PO SCH ×2 (07:51→16:07)
[2022-02-19] MEDS: Z GUARD REMEDY 4 OZ OINT TP SCH ×2 (07:53→16:08)
[2022-02-19] MEDS: CLOTRIMAZOLE 1% 15 GM TUBE TP SCH ×2 (07:53→16:08)
[2022-02-19 08:00] VITALS: BP 135/82
--- NOTE | 2022-02-19 09:00 | NUR ---
RN NOTE- PT IS ALERT ORIENTED TO PERSON PLACE, REQUESTING PRN RX, PO INTAKE FAIR, TEARFUL THIS MORNING, DENIES SI HI AH VH.
[2022-02-19] MEDS: ACETAMINOPHEN 325 MG TABLET PO PRN (14:22)
[2022-02-19] MEDS: MAG HYDROX/AL HYDROX/SIMETH 30 ML UDC PO PRN (14:25)
[2022-02-19 16:00] VITALS: BP 114/70
--- NOTE | 2022-02-19 20:28 | NUR ---
RN NOTES: PATIENT AWAKE ALERT, NO S/SX OF ACUTE DISTRESS NOTED. PATIENT EASILY AGITATED, DISORGANIZED, NEEDY DEMENDING, PARANOID,HYPERVERVAL, PARANOID, NEEDS FREQUENT REDIRECTION. FOCUS ON MEDS,ASSISTED WITH ADLS, TURNING AND REPOSTIONING DENIES SI/HI AT THIS TIME.ENCOURAGE TO VERBALIZED ANY FEELING OR CONCERN, SAFETY MEASURES IN PLACE. WILL CONTINUE TO MONITOR Q15MIN ROUNDS FOR SAFETY AND BEHAVIOR.
[2022-02-19] MEDS: QUETIAPINE FUMARATE 100 MG TABLET PO SCH (21:57)
[2022-02-19] MEDS: SENNOSIDES 8.6 MG TABLET PO SCH (21:57)
[2022-02-20] MEDS: HYDROCODONE/APAP 5/325MG TABLET PO PRN ×4 (02:16→18:46)
--- NOTE | 2022-02-20 02:17 | NUR ---
RN NOTES: PAIN PT. C/O GENERALIZED BODY PAIN 10/17 , NARCO 5/325 GIVEN, PER PT. REQUEST, WILL CONTINUE TO MONITOR.
[2022-02-20 08:00] VITALS: BP 144/71
[2022-02-20] MEDS: LEVOTHYROXINE SODIUM 50 MCG TABLET PO SCH (08:08)
[2022-02-20] MEDS: PANTOPRAZOLE 40 MG TABLET.DR PO SCH (08:08)
[2022-02-20] MEDS: BACLOFEN (10 MG) 10 MG TABLET PO SCH ×2 (08:55→16:10)
[2022-02-20] MEDS: busPIRone 5 MG TABLET PO SCH ×3 (08:55→16:10)
[2022-02-20] MEDS: GABAPENTIN 100 MG CAPSULE PO SCH ×3 (08:55→16:10)
[2022-02-20] MEDS: DOCUSATE SODIUM 100 MG CAPSULE PO SCH ×2 (08:56→16:10)
[2022-02-20] MEDS: AMLODIPINE BESYLATE 5 MG TABLET PO SCH (08:56)
[2022-02-20] MEDS: QUETIAPINE FUMARATE 25 MG TABLET PO SCH ×2 (08:56→12:23)
[2022-02-20] MEDS: LORAZEPAM 0.5 MG TABLET PO SCH ×2 (08:57→16:10)
[2022-02-20] MEDS: POLYETHYLENE GLYCOL 3350 17 GM POWD.PACK PO SCH ×2 (08:57→16:11)
[2022-02-20] MEDS: Z GUARD REMEDY 4 OZ OINT TP SCH ×2 (08:58→16:11)
[2022-02-20] MEDS: CLOTRIMAZOLE 1% 15 GM TUBE TP SCH ×2 (08:58→16:11)
--- NOTE | 2022-02-20 09:00 | NUR ---
RN NOTE- PT IS ALERT ORIENTED TO PERSON PLACE, REQUESTING PRN RX, PO INTAKE FAIR, DENIES SI HI AH VH.
[2022-02-20] MEDS: ONDANSETRON 4 MG TAB.RAPDIS PO PRN (11:52)
[2022-02-20] MEDS: MAG HYDROX/AL HYDROX/SIMETH 30 ML UDC PO PRN (14:42)
[2022-02-20] MEDS: diphenhydrAMINE HCL 25 MG CAPSULE PO PRN (14:44)
[2022-02-20 16:00] VITALS: BP 129/68
[2022-02-20 19:48] VITALS: BP 131/64
[2022-02-20] MEDS: QUETIAPINE FUMARATE 100 MG TABLET PO SCH (22:34)
[2022-02-20] MEDS: SENNOSIDES 8.6 MG TABLET PO SCH (22:34)
[2022-02-20] MEDS: LORAZEPAM 0.5 MG TABLET PO PRN (22:35)
--- NOTE | 2022-02-20 22:36 | NUR ---
Pt c/o upper back and neck pain 06/17. Tylenol 650 mg po prn given as ordered. Pt c/o anxiety. Least restrictive measures ineffective. Ativan 1 mg po prn given as ordered. Will continue to monitor.
--- NOTE | 2022-02-20 23:45 | NUR ---
Post 1 hr Tylenol effective. HI 0/10. Post 1 hr Ativan effective. Pt calm in bed. Will continue to monitor. Frequent visual check done for safety.
[2022-02-21] MEDS: HYDROCODONE/APAP 5/325MG TABLET PO PRN ×2 (00:37→08:47)
--- NOTE | 2022-02-21 00:38 | NUR ---
Pt c/o upper back pain 10/17. [place] 5-325 mg po prn given as ordered. Will continue to monitor.
--- NOTE | 2022-02-21 01:40 | NUR ---
Post 1 hr [place] effective. SD 0/10. Frequent visual check done for safety. Will continue to monitor.
[2022-02-21 08:00] VITALS: BP 124/67
--- NOTE | 2022-02-21 08:07 | NUR ---
SW Discharge Note: Patient will be discharged to longterm facility to [facility] [address] [place] [address]; . Please arrange Ambulance transportation at 1PM. Configuration Consultant spoke with JAIDA, Broaching Machine Operator at [facility]; ([phone]), who stated patient will be accepted at facility today. Patient is alert and oriented x2. Patient denies any suicidal or homicidal ideations. Patient is aware and agreeable with discharge plans. Patient does not have any supportive contact at this time. Patient will continue to follow-up with (psychiatrist) Dr. De Luna [address] [facility] [address] [address], [place] [address]; ([phone]) and Switch Repairer Dr. Tapia at [address] [address], [place] [address]; ([phone]). Pt presents with euthymic mood and congruent affect.
[2022-02-21] MEDS: LEVOTHYROXINE SODIUM 50 MCG TABLET PO SCH (08:41)
[2022-02-21 08:42] VITALS: BP 124/67
[2022-02-21] MEDS: busPIRone 5 MG TABLET PO SCH ×2 (08:42→12:30)
[2022-02-21] MEDS: GABAPENTIN 100 MG CAPSULE PO SCH ×3 (08:42→12:31)
[2022-02-21] MEDS: PANTOPRAZOLE 40 MG TABLET.DR PO SCH (08:42)
[2022-02-21] MEDS: LORAZEPAM 0.5 MG TABLET PO SCH (08:42)
[2022-02-21] MEDS: AMLODIPINE BESYLATE 5 MG TABLET PO SCH (08:42)
[2022-02-21] MEDS: POLYETHYLENE GLYCOL 3350 17 GM POWD.PACK PO SCH ×2 (08:42→08:49)
[2022-02-21] MEDS: QUETIAPINE FUMARATE 25 MG TABLET PO SCH ×2 (08:42→12:30)
[2022-02-21] MEDS: BACLOFEN (10 MG) 10 MG TABLET PO SCH (08:42)
[2022-02-21] MEDS: DOCUSATE SODIUM 100 MG CAPSULE PO SCH ×2 (08:42→08:49)
--- NOTE | 2022-02-21 08:47 | NUR ---
RN NOTE Patient complained of generalized pain 8/10 on pain scale. PRN [place] 5/325 1 tablet given. Will continue to monitor.
[2022-02-21] MEDS: Z GUARD REMEDY 4 OZ OINT TP SCH (08:50)
[2022-02-21] MEDS: CLOTRIMAZOLE 1% 15 GM TUBE TP SCH (08:50)
--- NOTE | 2022-02-21 14:43 | NUR ---
DISCHARGE NOTE 76 yr old female discharged to [facility] in stable condition. Compliant with medications, cooperative with treatment plans. Patient denies SI/HI and instructed to go to the closest ER if developing SI/HI. Behavior improved, psychiatric treatment plans met, medical treatment plans deferred for continual monitoring. Educated patient about after care plan and copy provided. Patient had no belongings. Medication reconciled with Dr. De Luna and Dr. Bran. Report given to BERNICE Tran at [facility] for GIULIANA. Wound pictures documented in chart. Patient left unit at 1330 via ambulance with 2 hotel casino floorperson.
== END 2022-02-21 13:20 | DRG 885 ==
LOC: MEDOV2 14:14 → GPS 14:27
PROVIDERS: ADMIT Psychiatry & Neurology Psychosomatic Medicine
DX: F33.9 Major depressive disorder, recurrent, unspecified (principal); N17.0 Acute kidney failure with tubular necrosis; D68.59 Other primary thrombophilia; E44.0 Moderate protein-calorie malnutrition; Z87.19 Personal history of other diseases of the digestive system; K57.90 Diverticulosis of intestine, part unspecified, without perforation or abscess without bleeding; G62.9 Polyneuropathy, unspecified; F41.9 Anxiety disorder, unspecified; E87.6 Hypokalemia; F29 Unspecified psychosis not due to a substance or known physiological condition; Z90.49 Acquired absence of other specified parts of digestive tract; Z74.01 Bed confinement status; M51.36 Other intervertebral disc degeneration, lumbar region; G89.29 Other chronic pain; M19.90 Unspecified osteoarthritis, unspecified site; E66.01 Morbid (severe) obesity due to excess calories; I10 Essential (primary) hypertension; F20.9 Schizophrenia, unspecified; Z81.8 Family history of other mental and behavioral disorders; Z85.528 Personal history of other malignant neoplasm of kidney; Z91.199 Patient's noncompliance with other medical treatment and regimen due to unspecified reason
CPT/HCPCS: 97110-TC; 97112-TC; 97530-TC; Q0162; Q0163

== ENCOUNTER 2023-02-01 19:57 | Inpatient (IN) | payer MEDICARE, OTHER ==
[~2023-02-01] VITALS: Ht 162.6 cm; Wt 100.7 kg
[2023-02-01 20:50] VITALS: BP 126/46; TEMP 97.5; O2SAT 95
[2023-02-01] MEDS ORDERED: MAG HYDROX/AL HYDROX/SIMETH 30 ML UDC ONE (20:58)
[2023-02-01] MEDS ORDERED: MAG HYDROX/AL HYDROX/SIMETH 30 ML UDC PO ONE (21:00)
[2023-02-01] MEDS ORDERED: CYCL5TAB PO (21:40)
[2023-02-01 23:00] VITALS: BP 126/46; TEMP 97.5; O2SAT 95
[2023-02-02] MEDS ORDERED: MAGNESIUM HYDROXIDE 30 ML UDC PO PRN
[2023-02-02] MEDS ORDERED: ACETAMINOPHEN 325 MG TABLET PO PRN
[2023-02-02] MEDS ORDERED: KETOROLAC TROMETHAMINE INJ 30 MG/ML VIAL IV PRN
[2023-02-02] MEDS ORDERED: BISACODYL SUPP (10 MG) 10 MG/SUPP.RECT SUPP.RECT RC PRN
[2023-02-02] MEDS ORDERED: diphenhydrAMINE HCL 25 MG CAPSULE PO PRN
[2023-02-02] MEDS ORDERED: ONDANSETRON HCL/PF 4 MG/2 ML VIAL IVP PRN
[2023-02-02] MEDS ORDERED: CYCLOBENZAPRINE 10 MG TABLET PO PRN
[2023-02-02] MEDS: SENNOSIDES 8.6 MG TABLET PO SCH ×3 (00:18→21:49)
[2023-02-02 06:19] LABS: BASOPHILS % (AUTO) 0.4 % (0.0-2.0); EOSINOPHILS # (AUTO) 0.4 K/uL (0.0-0.7); HEMATOCRIT 35 % (33-45); HEMOGLOBIN 11.5 g/dL (11.5-14.8); LYMPHOCYTES # (AUTO) 1.7 K/uL (0.8-4.8); LYMPHOCYTES % (AUTO) 25.5 % (20.0-44.0); MEAN CORPUSCULAR HEMOGLOBIN 26 PG (26.0-33.0); MEAN CORPUSCULAR HGB CONC 33 g/dl (31.0-36.0); MEAN CORPUSCULAR VOLUME 79 fL (82-100); MONOCYTES # (AUTO) 0.6 K/uL (0.1-1.30); MONOCYTES % (AUTO) 8.4 % (2.0-12.0); NEUTROPHILS # (AUTO) 3.9 K/uL (1.8-8.9); NEUTROPHILS % (AUTO) 59.7 % (43.0-81.0); PLATELET COUNT (AUTO) 255 K/uL (150-450); RED BLOOD CELL COUNT(AUTO) 4.44 MIL/uL (4.0-5.2); RED CELL DISTRIBUTION WIDTH 14.9 % (11.5-15.0); WHITE BLOOD COUNT (AUTO) 6.6 K/uL (4.3-11.0)
[2023-02-02 06:45] LABS: CALCIUM, SERUM 9.6 mg/dL (8.5-10.1); CARBON DIOXIDE 28 mmol/L (21-32); CHLORIDE 102 mmol/L (98-107); GLUCOSE 92 mg/dL (74-106); MAGNESIUM 2.3 mg/dL (1.8-2.4); PHOSPHORUS 3.8 mg/dL (2.5-4.9); POTASSIUM 4.3 mmol/L (3.5-5.1); SODIUM SERUM 137 mmol/L (136-145); UREA NITROGEN, BLOOD 26 mg/dL (7-18)
[2023-02-02 08:00] VITALS: BP 132/53; TEMP 97.9; O2SAT 95
[2023-02-02] MEDS ORDERED: BUPR150T5 PO (08:05)
[2023-02-02] MEDS ORDERED: ACET-868 PO (08:05)
[2023-02-02] MEDS ORDERED: CYAN-51 PO (08:05)
[2023-02-02] MEDS ORDERED: TAVA10SO2 TP (08:05)
[2023-02-02] MEDS ORDERED: BUPR1FIL SL (08:05)
[2023-02-02] MEDS ORDERED: TRAZ-257 PO (08:05)
[2023-02-02] MEDS ORDERED: HYDR-500 PO (08:05)
[2023-02-02] MEDS ORDERED: LAMO200T2 PO (08:05)
[2023-02-02] MEDS ORDERED: RISP0.2515 PO (08:05)
[2023-02-02] MEDS ORDERED: MULT-24 PO (08:05)
[2023-02-02] MEDS ORDERED: AMIN30LI2 PO (08:05)
[2023-02-02] MEDS ORDERED: AMLO-212 PO (08:05)
[2023-02-02] MEDS ORDERED: hydrOXYzine PAMOATE 25 MG CAPSULE PO PRN (08:30)
[2023-02-02] MEDS ORDERED: NA PHOS,M-B/NA PHOS,DI-BA 1 EA ENEMA RC PRN (08:30)
[2023-02-02] MEDS: POLYETHYLENE GLYCOL 3350 17 GM POWD.PACK PO SCH ×3 (09:00→16:43)
[2023-02-02] MEDS ORDERED: busPIRone 5 MG TABLET PO SCH (09:00)
[2023-02-02] MEDS ORDERED: NYSTATIN (PYXIS) 500,000 UNIT/5 ML ORAL.SUSP PO SCH (09:00)
[2023-02-02] MEDS ORDERED: DOCUSATE SODIUM 100 MG CAPSULE PO SCH (09:00)
[2023-02-02] MEDS ORDERED: QUETIAPINE FUMARATE 100 MG TABLET PO SCH (09:00)
[2023-02-02] MEDS: PROSOURCE / PROSTAT (PYXIS) 30 ML UDC PO SCH ×2 (09:00→16:53)
[2023-02-02] MEDS ORDERED: BACLOFEN (10 MG) 10 MG TABLET PO SCH (09:00)
[2023-02-02] MEDS: PSYLLIUM SEED 1 PKT PACKET PO SCH ×2 (09:00→09:07)
[2023-02-02] MEDS: risperiDONE 1 MG TABLET PO SCH (09:06)
[2023-02-02] MEDS: CYANOCOBALAMIN 500 MCG TABLET PO SCH (09:07)
[2023-02-02] MEDS: busPIRone 5 MG TABLET PO SCH ×3 (09:07→16:53)
[2023-02-02] MEDS: buPROPion SR 150 MG TABLET.ER PO SCH (09:07)
[2023-02-02] MEDS: LamoTRIgine 100 MG TABLET PO SCH (09:08)
[2023-02-02] MEDS: AMLODIPINE BESYLATE 5 MG TABLET PO SCH (09:08)
[2023-02-02] MEDS: MULTIVITAMINS,THERAGRAN 1 UDTAB TABLET PO SCH (09:09)
[2023-02-02] MEDS: ENOXAPARIN SODIUM 30 MG/0.3 ML DISP.SYRIN SQ SCH (09:12)
[2023-02-02] MEDS: PANTOPRAZOLE 40 MG TABLET.DR PO SCH (09:15)
[2023-02-02] MEDS: LEVOTHYROXINE SODIUM 50 MCG TABLET PO SCH (09:15)
[2023-02-02] MEDS: NEPRO VAN 237 ML CAN PO SCH ×2 (11:06→17:38)
[2023-02-02] MEDS ORDERED: KEY,NONCONTROL,TO KEEP IN PYXI 1 EA MC ONE ×2 (12:51→16:46)
[2023-02-02 16:00] VITALS: BP 92/51; TEMP 98.4; O2SAT 92
[2023-02-02] MEDS: [UNRECOGNIZED DRUG - OTHER] SL SCH (16:54)
[2023-02-02 20:00] VITALS: BP 125/58; TEMP 97.7; O2SAT 98
[2023-02-02] MEDS: TRAZODONE 50 MG TABLET PO SCH (21:49)
[2023-02-02] MEDS: HYDROCODONE/APAP 5/325MG TABLET PO PRN (22:26)
[2023-02-03 05:52] LABS: APPEARANCE,URINE CLOUDY (CLEAR); BILIRUBIN,URINE NEGATIVE (NEGATIVE); BLOOD, URINE 1+ Ery/uL (NEGATIVE); COLOR,URINE YELLOW (YELLOW); KETONES,URINE NEGATIVE (NEGATIVE); LEUKOCYTE ESTERASE ,URINE 3+ (NEGATIVE); NITRITE, URINE NEGATIVE (NEGATIVE); PROTEIN,URINE 1+ mg/dl (NEGATIVE); UGLUCOSE NEGATIVE (NEGATIVE); UROBILINOGEN,URINE 0.2 EU/dL (0.2)
[2023-02-03 05:57] LABS: BASOPHILS % (AUTO) 0.4 % (0.0-2.0); EOSINOPHILS # (AUTO) 0.4 K/uL (0.0-0.7); EOSINOPHILS % (AUTO) 5.9 % (0.0-6.0); HEMATOCRIT 35 % (33-45); HEMOGLOBIN 11.4 g/dL (11.5-14.8); LYMPHOCYTES # (AUTO) 1.5 K/uL (0.8-4.8); MEAN CORPUSCULAR HEMOGLOBIN 26 PG (26.0-33.0); MEAN CORPUSCULAR HGB CONC 33 g/dl (31.0-36.0); MEAN CORPUSCULAR VOLUME 79 fL (82-100); MONOCYTES # (AUTO) 0.5 K/uL (0.1-1.30); MONOCYTES % (AUTO) 8.3 % (2.0-12.0); NEUTROPHILS # (AUTO) 3.7 K/uL (1.8-8.9); NEUTROPHILS % (AUTO) 60.4 % (43.0-81.0); PLATELET COUNT (AUTO) 263 K/uL (150-450); RED BLOOD CELL COUNT(AUTO) 4.41 MIL/uL (4.0-5.2); RED CELL DISTRIBUTION WIDTH 15.1 % (11.5-15.0); WHITE BLOOD COUNT (AUTO) 6.2 K/uL (4.3-11.0)
[2023-02-03 06:00] LABS: CREATININE, URINE 90.8 MG/DL (30.0-125.0); URINE TOTAL PROTEIN 88.7 mg/dL (0-11.9)
[2023-02-03 06:02] LABS: ALANINE AMINOTRANSFERASE 10 U/L (12-78); ALKALINE PHOSPHATASE 65 U/L (46-116); ASPARTATE AMINOTRANSFERASE 12 U/L (15-37); BILIRUBIN,TOTAL 0.3 mg/dL (0.2-1.0); CALCIUM, SERUM 9.3 mg/dL (8.5-10.1); CARBON DIOXIDE 29 mmol/L (21-32); CHLORIDE 100 mmol/L (98-107); CREATININE 2.2 mg/dL (0.6-1.3); GLUCOSE 92 mg/dL (74-106); MAGNESIUM 2.2 mg/dL (1.8-2.4); POTASSIUM 4.3 mmol/L (3.5-5.1); SODIUM SERUM 134 mmol/L (136-145); UREA NITROGEN, BLOOD 29 mg/dL (7-18)
[2023-02-03 06:04] LABS: CREATINE KINASE, TOTAL 28 U/L (26-192)
[2023-02-03 06:24] LABS: ADD URINE CULTURE YES; BACTERIA,URINE Moderate /HPF (None Seen); SQUAMOUS EPITHELIAL CELL,UR None Seen /HPF (None Seen)
[2023-02-03] MEDS: LEVOTHYROXINE SODIUM 50 MCG TABLET PO SCH (07:40)
[2023-02-03] MEDS: PANTOPRAZOLE 40 MG TABLET.DR PO SCH (07:40)
[2023-02-03] MEDS: NEPRO VAN 237 ML CAN PO SCH ×2 (08:00→08:10)
[2023-02-03] MEDS: PROSOURCE / PROSTAT (PYXIS) 30 ML UDC PO SCH ×2 (08:14→17:44)
[2023-02-03] MEDS ORDERED: KEY,NONCONTROL,TO KEEP IN PYXI 1 EA MC ONE ×2 (08:21→17:39)
[2023-02-03] MEDS: AMLODIPINE BESYLATE 5 MG TABLET PO SCH (08:28)
[2023-02-03] MEDS: PSYLLIUM SEED 1 PKT PACKET PO SCH ×2 (08:28→09:00)
[2023-02-03] MEDS: POLYETHYLENE GLYCOL 3350 17 GM POWD.PACK PO SCH ×3 (08:28→17:00)
[2023-02-03] MEDS: LamoTRIgine 100 MG TABLET PO SCH (08:29)
[2023-02-03] MEDS: busPIRone 5 MG TABLET PO SCH ×3 (08:29→17:44)
[2023-02-03] MEDS: buPROPion SR 150 MG TABLET.ER PO SCH (08:30)
[2023-02-03] MEDS: CYANOCOBALAMIN 500 MCG TABLET PO SCH (08:30)
[2023-02-03] MEDS: MULTIVITAMINS,THERAGRAN 1 UDTAB TABLET PO SCH (08:30)
[2023-02-03] MEDS: risperiDONE 1 MG TABLET PO SCH (08:30)
[2023-02-03] MEDS: [UNRECOGNIZED DRUG - OTHER] SL SCH ×2 (08:31→17:45)
[2023-02-03] MEDS: ENOXAPARIN SODIUM 30 MG/0.3 ML DISP.SYRIN SQ SCH (08:34)
[2023-02-03 09:30] VITALS: BP 131/55; TEMP 97.5; O2SAT 94
[2023-02-03 10:47] LABS: EOSINOPHIL,URINE Few
[2023-02-03] MEDS: HYDROCODONE/APAP 5/325MG TABLET PO PRN (13:05)
[2023-02-03] MEDS ORDERED: HYDROCODONE/APAP 7.5/325MG 1 EACH TABLET PO PRN (15:00)
[2023-02-03] MEDS ORDERED: ALPRAZOLAM 0.25 MG TABLET PO PRN (15:00)
[2023-02-03] MEDS: HYDROCODONE/APAP 10/325MG TABLET PO PRN (15:51)
[2023-02-03 16:00] VITALS: BP 112/49; TEMP 97.6; O2SAT 94
[2023-02-03 20:00] VITALS: BP 117/52; TEMP 97.6; O2SAT 93
[2023-02-03] MEDS: TRAZODONE 50 MG TABLET PO SCH (21:19)
[2023-02-03] MEDS: ONDANSETRON 4 MG TAB.RAPDIS PO PRN (21:22)
[2023-02-03] MEDS: SENNOSIDES 8.6 MG TABLET PO SCH (21:23)
[2023-02-04 06:06] LABS: PTH, INTACT 15 pg/mL (15-65)
[2023-02-04] MEDS: LEVOTHYROXINE SODIUM 50 MCG TABLET PO SCH (07:56)
[2023-02-04] MEDS: PANTOPRAZOLE 40 MG TABLET.DR PO SCH (07:56)
[2023-02-04] MEDS: HYDROCODONE/APAP 10/325MG TABLET PO PRN (08:14)
[2023-02-04] MEDS: risperiDONE 1 MG TABLET PO SCH (08:17)
[2023-02-04] MEDS: LamoTRIgine 100 MG TABLET PO SCH (08:18)
[2023-02-04] MEDS: CYANOCOBALAMIN 500 MCG TABLET PO SCH (08:18)
[2023-02-04] MEDS: busPIRone 5 MG TABLET PO SCH (08:18)
[2023-02-04] MEDS: buPROPion SR 150 MG TABLET.ER PO SCH (08:18)
[2023-02-04] MEDS: MULTIVITAMINS,THERAGRAN 1 UDTAB TABLET PO SCH (08:18)
[2023-02-04 08:19] VITALS: BP 119/54
[2023-02-04] MEDS: POLYETHYLENE GLYCOL 3350 17 GM POWD.PACK PO SCH (08:19)
[2023-02-04] MEDS: AMLODIPINE BESYLATE 5 MG TABLET PO SCH (08:19)
[2023-02-04] MEDS: PROSOURCE / PROSTAT (PYXIS) 30 ML UDC PO SCH (08:19)
[2023-02-04] MEDS: PSYLLIUM SEED 1 PKT PACKET PO SCH (08:20)
[2023-02-04] MEDS: ENOXAPARIN SODIUM 30 MG/0.3 ML DISP.SYRIN SQ SCH (08:21)
[2023-02-04] MEDS: [UNRECOGNIZED DRUG - OTHER] SL SCH (09:00)
[2023-02-04] MEDS ORDERED: MUPIROCIN OINT 2% 22 GM TUBE NS SCH ×2 (09:00)
[2023-02-04] MEDS ORDERED: KEY,NONCONTROL,TO KEEP IN PYXI 1 EA MC ONE (11:45)
[2023-02-04] MEDS: ONDANSETRON 4 MG TAB.RAPDIS PO PRN (13:19)
[2023-02-06 11:06] LABS: *SPE A/G RATIO 0.9 (0.7-1.7); *SPE ALBUMIN 3.1 g/dL (2.9-4.4); *SPE ALPHA-1-GLOBULIN 0.3 g/dL (0.0-0.4); *SPE ALPHA-2-GLOBULIN 0.7 g/dL (0.4-1.0); *SPE BETA GLOBULIN 1.1 g/dL (0.7-1.3); *SPE GLOBULIN, TOTAL 3.4 g/dL (2.2-3.9); *SPE M-SPIKE Not Observed g/dL (Not Observed); *SPE PROTEIN TOTAL 6.5 g/dL (6.0-8.5); *SPEGAMMA GLOBULIN 1.3 g/dL (0.4-1.8)
== END 2023-02-04 13:30 | DRG 552 ==
LOC: ER 20:05 → MED 22:36
PROVIDERS: ADMIT Nurse Practitioner Acute Care; ATTEND Nurse Practitioner Family
DX: M50.122 Cervical disc disorder at C5-C6 level with radiculopathy (principal); D68.69 Other thrombophilia; F32.3 Major depressive disorder, single episode, severe with psychotic features; N17.9 Acute kidney failure, unspecified; M48.02 Spinal stenosis, cervical region; I12.9 Hypertensive chronic kidney disease with stage 1 through stage 4 chronic kidney disease, or unspecified chronic kidney disease; N18.9 Chronic kidney disease, unspecified; G62.9 Polyneuropathy, unspecified; Z74.01 Bed confinement status; Z88.0 Allergy status to penicillin; Z90.49 Acquired absence of other specified parts of digestive tract; K21.9 Gastro-esophageal reflux disease without esophagitis; M19.012 Primary osteoarthritis, left shoulder; E03.9 Hypothyroidism, unspecified; Z85.528 Personal history of other malignant neoplasm of kidney; G89.29 Other chronic pain; F29 Unspecified psychosis not due to a substance or known physiological condition; E66.01 Morbid (severe) obesity due to excess calories; Z68.38 Body mass index [BMI] 38.0-38.9, adult; F43.10 Post-traumatic stress disorder, unspecified
CPT/HCPCS: 36415; 72125-TC; 73030-TC; 73080-TC; 76770-TC; 80048-TC; 80053-TC; 81001; 82550-TC; 82570-TC; 82962-TC; 83735-TC; 83970; 84100-TC; 84155; 84165; 84300-TC; 85025-TC; 87081-TC; 87086-TC; 97110-TC; 97530-TC; G0378; J1650; J1885; J2405; J7030; J7042; Q0162

== ENCOUNTER 2024-03-07 18:55 | Inpatient (IN) | payer MEDICARE, OTHER ==
[~2024-03-07] VITALS: Ht 162.6 cm; Wt 117.9 kg
[~2024-03-07 18:55] MED LIST changes: +AMIN30LI2 PO; +AMLO-212 PO; -BACL10TA PO; +BUPR150T5 PO; +BUPR1FIL SL; +CYAN-51 PO; -DIPH25CA51 PO; -DOCU-141 PO; -HYDR-4303 PO; +HYDR-500 PO; +LAMO200T2 PO; -LEVO500T90 PO; -LUBI24CA5 PO; -MELA3TAB41 PO; -METR500T PO; +MULT-24 PO; -NUT.237L67 PO; -NYST5ORA PO; -PSYL3.4P6 PO; -QUET100T PO; +RISP0.2515 PO; -SENN-261 PO; -SIME80TA15 PO; +TAVA10SO2 TP; +TRAZ-257 PO
[2024-03-07 19:39] LABS: ABG BASE EXCESS 0.3 mmol/L (-2.0-3.0); ABG OXYGEN SATURATION 95.2 % (94.0-98.0); ABG PCO2 44.5 mmHg (32.0-45.0); ABG PH 7.379 (7.350-7.450); ABG PO2 77.1 mmHg (83.0-108.0); ABG TOTAL HEMOGLOBIN 11.6 G/dL (12.0-16.0); MetHb 0.2 % (0.0-1.5); SITE, ABG LEFT RADIAL
[2024-03-07 19:51] LABS: BASOPHILS % (AUTO) 0.5 % (0.0-2.0); EOSINOPHILS # (AUTO) 0.1 K/uL (0.0-0.7); EOSINOPHILS % (AUTO) 0.6 % (0.0-6.0); HEMATOCRIT 32 % (33-45); HEMOGLOBIN 10.6 g/dL (11.5-14.8); LYMPHOCYTES # (AUTO) 1.2 K/uL (0.8-4.8); MEAN CORPUSCULAR HEMOGLOBIN 26 PG (26.0-33.0); MEAN CORPUSCULAR HGB CONC 33 g/dl (31.0-36.0); MEAN CORPUSCULAR VOLUME 79 fL (82-100); MONOCYTES # (AUTO) 1.7 K/uL (0.1-1.30); MONOCYTES % (AUTO) 12.8 % (2.0-12.0); NEUTROPHILS # (AUTO) 10.1 K/uL (1.8-8.9); NEUTROPHILS % (AUTO) 77.1 % (43.0-81.0); RED CELL DISTRIBUTION WIDTH 15.6 % (11.5-15.0); WHITE BLOOD COUNT (AUTO) 13.1 K/uL (4.3-11.0)
[2024-03-07 19:52] LABS: BASOPHILS # (AUTO) 0.1 K/uL (0.0-0.2)
[2024-03-07 19:58] LABS: CARBON DIOXIDE 31 mmol/L (21-32); CHLORIDE 101 mmol/L (98-107); CREATININE 1.9 mg/dL (0.6-1.3); GLUCOSE 119 mg/dL (74-106); POTASSIUM 4.4 mmol/L (3.5-5.1); SODIUM SERUM 135 mmol/L (136-145); UREA NITROGEN, BLOOD 30 mg/dL (7-18)
[2024-03-07 20:10] LABS: NT-PRO BNP 486 pg/mL (0-125)
[2024-03-07] MEDS ORDERED: LEVOFLOXACIN 500 MG /D5W 100ML 100 ML IV ONE (20:28)
[2024-03-07] MEDS: LEVOFLOXACIN 500 MG /D5W 100ML 500 MG/100 ML PIGGYBACK IV ONE (20:30)
[2024-03-07 20:37] LABS: PLATELET COUNT (AUTO) 248 K/uL (150-450)
[2024-03-07 20:38] LABS: INR 1.05 (0.91-1.10); PARTIAL THROMBOPLASTIN TIME 30.2 SEC (24.3-34.3); PROTHROMBIN TIME 11.1 SECS (9.2-11.1)
[2024-03-07 22:30] VITALS: BP 130/50; TEMP 98.8; O2SAT 96
[2024-03-07] MEDS ORDERED: Z GUARD REMEDY 4 OZ OINT TP PRN (23:00)
[2024-03-07] MEDS ORDERED: ONDANSETRON HCL/PF 4 MG/2 ML VIAL IVP PRN (23:00)
[2024-03-07] MEDS ORDERED: MAGNESIUM HYDROXIDE 30 ML UDC PO PRN (23:00)
[2024-03-07] MEDS: IV NS 0.9% 1,000 ML IV PRN (23:32)
[2024-03-08] VITALS: BP 133/52; TEMP 99; O2SAT 97
[2024-03-08] MEDS: VANCOMYCIN 1 GM /D5W 250 ML PB IV ONE (00:43)
[2024-03-08] MEDS ORDERED: LEVOFLOXACIN 250 MG /D5W 50 ML 50 ML IV ONE (00:48)
[2024-03-08] MEDS: LEVOFLOXACIN 250 MG /D5W 50 ML 50 ML IV ONE (00:50)
[2024-03-08] MEDS: VANCOMYCIN 1.5 GM in IV NS 0.9% 250 ML IV ONE (01:57)
[2024-03-08] MEDS: ACETAMINOPHEN 325 MG TABLET PO PRN (02:09)
[2024-03-08 04:00] VITALS: BP 128/56; TEMP 98.2; O2SAT 96
[2024-03-08 06:13] LABS: BASOPHILS % (AUTO) 0.3 % (0.0-2.0); EOSINOPHILS # (AUTO) 0.1 K/uL (0.0-0.7); EOSINOPHILS % (AUTO) 0.9 % (0.0-6.0); HEMATOCRIT 31 % (33-45); LYMPHOCYTES # (AUTO) 1.2 K/uL (0.8-4.8); MEAN CORPUSCULAR HEMOGLOBIN 25 PG (26.0-33.0); MEAN CORPUSCULAR HGB CONC 32 g/dl (31.0-36.0); MEAN CORPUSCULAR VOLUME 78 fL (82-100); MONOCYTES # (AUTO) 1.3 K/uL (0.1-1.30); MONOCYTES % (AUTO) 11.9 % (2.0-12.0); NEUTROPHILS # (AUTO) 8.5 K/uL (1.8-8.9); NEUTROPHILS % (AUTO) 75.9 % (43.0-81.0); PLATELET COUNT (AUTO) 246 K/uL (150-450); RED CELL DISTRIBUTION WIDTH 15.6 % (11.5-15.0); WHITE BLOOD COUNT (AUTO) 11.2 K/uL (4.3-11.0)
[2024-03-08] MEDS: GUAIFENESIN/D-METHORPHAN HB 5 ML UDC PO PRN (06:35)
[2024-03-08 06:38] LABS: ALANINE AMINOTRANSFERASE 13 U/L (12-78); ALBUMIN 2.8 g/dL (3.4-5.0); ALKALINE PHOSPHATASE 64 U/L (46-116); ASPARTATE AMINOTRANSFERASE 11 U/L (15-37); BILIRUBIN,DIRECT 0.1 mg/dL (0.0-0.2); BILIRUBIN,TOTAL 0.5 mg/dL (0.2-1.0); CALCIUM, SERUM 8.7 mg/dL (8.5-10.1); CARBON DIOXIDE 29 mmol/L (21-32); CHLORIDE 101 mmol/L (98-107); CREATININE 1.7 mg/dL (0.6-1.3); GLUCOSE 96 mg/dL (74-106); MAGNESIUM 2.3 mg/dL (1.8-2.4); PHOSPHORUS 3.1 mg/dL (2.5-4.9); POTASSIUM 4.2 mmol/L (3.5-5.1); SODIUM SERUM 135 mmol/L (136-145); UREA NITROGEN, BLOOD 28 mg/dL (7-18)
[2024-03-08 08:00] VITALS: BP 120/51; TEMP 98.4; O2SAT 92
[2024-03-08] MEDS ORDERED: BUTA1CAP42 PO (08:04)
[2024-03-08] MEDS ORDERED: BUSP10TA35 PO (08:04)
[2024-03-08] MEDS ORDERED: RISP0.5T65 PO (08:04)
[2024-03-08] MEDS ORDERED: NYST15PO4 TP (08:04)
[2024-03-08] MEDS ORDERED: CHOL100043 PO (08:04)
[2024-03-08] MEDS ORDERED: TAMS-12 PO (08:04)
[2024-03-08] MEDS ORDERED: MELA3TAB41 PO (08:04)
[2024-03-08] MEDS ORDERED: PSYL575P5 PO (08:04)
[2024-03-08] MEDS ORDERED: DOCU100T2 PO (08:04)
[2024-03-08] MEDS ORDERED: MAG-55 PO (08:04)
[2024-03-08] MEDS: PANTOPRAZOLE 40 MG TABLET.DR PO SCH ×2 (08:09→16:59)
[2024-03-08] MEDS: GUAIFENESIN LA 600 MG TABLET.SA PO SCH (08:17)
[2024-03-08] MEDS: DOCUSATE SODIUM 100 MG CAPSULE PO SCH (11:53)
[2024-03-08] MEDS ORDERED: ACETAMINOPHEN 325 MG TABLET PO PRN ×2 (12:30)
[2024-03-08] MEDS ORDERED: MAGNESIUM HYDROXIDE 30 ML UDC PO PRN (12:30)
[2024-03-08] MEDS: LEVOTHYROXINE SODIUM 50 MCG TABLET PO SCH (13:08)
[2024-03-08] MEDS: buPROPion SR 150 MG TABLET.ER PO SCH (13:08)
[2024-03-08] MEDS: HEPARIN SODIUM, PORCINE 5000 UNITS/1 ML VIAL SQ SCH (13:12)
[2024-03-08 16:00] VITALS: BP 113/53; TEMP 97.7; O2SAT 99
[2024-03-08] MEDS: NYSTATIN TOP POWDER 15 GM BOTTLE TP SCH (16:22)
[2024-03-08] MEDS: busPIRone 5 MG TABLET PO SCH (16:59)
[2024-03-08 20:00] VITALS: BP 125/52; TEMP 97.5; O2SAT 99
[2024-03-08] MEDS: TAMSULOSIN 0.4 MG CAP.SR.24H PO SCH (21:34)
[2024-03-09 04:00] VITALS: BP 120/65; TEMP 97.9; O2SAT 97
[2024-03-09] MEDS: HYDROCODONE/APAP 5/325MG TABLET PO PRN (05:30)
[2024-03-09 08:00] VITALS: BP 132/52; TEMP 98.1; O2SAT 96
[2024-03-09] MEDS: LamoTRIgine 100 MG TABLET PO SCH (08:17)
[2024-03-09] MEDS: AMLODIPINE BESYLATE 5 MG TABLET PO SCH (08:17)
[2024-03-09] MEDS: BISACODYL SUPP (10 MG) 10 MG/SUPP.RECT SUPP.RECT RC PRN (11:09)
[2024-03-09] MEDS: VANCOMYCIN HCL 1.25 GM in IV D5W 250 ML IV SCH (13:04)
[2024-03-09] MEDS: MENTHOL/CETYLPYRD (CEPACOL) 1 LOZ LOZENGE PO PRN (13:18)
[2024-03-09 16:00] VITALS: BP 116/51; TEMP 98.6; O2SAT 96
[2024-03-09 16:58] LABS: CALCIUM, SERUM 8.8 mg/dL (8.5-10.1); CARBON DIOXIDE 31 mmol/L (21-32); CHLORIDE 105 mmol/L (98-107); CREATININE 1.5 mg/dL (0.6-1.3); GLUCOSE 89 mg/dL (74-106); POTASSIUM 4.2 mmol/L (3.5-5.1); SODIUM SERUM 140 mmol/L (136-145); UREA NITROGEN, BLOOD 25 mg/dL (7-18)
[2024-03-09 20:00] VITALS: BP 115/97; TEMP 97; O2SAT 97
[2024-03-09] MEDS: LEVOFLOXACIN 750 MG /D5W 150ML 750 MG in PREMIX 1 EA IV SCH (20:27)
[2024-03-09] MEDS: diphenhydrAMINE HCL 25 MG CAPSULE PO ONE ×2 (21:00→23:10)
[2024-03-09] MEDS: MAG HYDROX/AL HYDROX/SIMETH 30 ML UDC PO PRN (21:18)
[2024-03-10 04:00] VITALS: BP 136/57; TEMP 98.2; O2SAT 96
[2024-03-10 08:00] VITALS: BP 118/51; TEMP 98.6; O2SAT 94
[2024-03-10 16:00] VITALS: BP 124/51; TEMP 98.4; O2SAT 94
[2024-03-10 18:10] LABS: CALCIUM, SERUM 8.5 mg/dL (8.5-10.1); CARBON DIOXIDE 28 mmol/L (21-32); CHLORIDE 106 mmol/L (98-107); CREATININE 1.5 mg/dL (0.6-1.3); GLUCOSE 104 mg/dL (74-106); POTASSIUM 4.1 mmol/L (3.5-5.1); SODIUM SERUM 140 mmol/L (136-145); UREA NITROGEN, BLOOD 18 mg/dL (7-18)
[2024-03-10 20:00] VITALS: BP 134/70; TEMP 98.2; O2SAT 95
[2024-03-11 04:00] VITALS: BP 144/62; TEMP 98.8; O2SAT 93
[2024-03-11 04:21] VITALS: O2SAT 93
[2024-03-11] MEDS: IPRATROPIUM NEB FS 0.5 MG/2.5 ML AMPUL.NEB NEB PRN (04:24)
[2024-03-11] MEDS: ALBUTEROL FS 2.5 MG/3 ML VIAL.NEB NEB PRN (04:24)
[2024-03-11 04:35] VITALS: O2SAT 97
[2024-03-11 08:00] VITALS: BP 153/61; TEMP 98.1; O2SAT 97
[2024-03-11 09:39] VITALS: BP 153/61
[2024-03-11] MEDS: ZINC OXIDE 30 GM TUBE TP PRN (11:43)
[2024-03-11] MEDS ORDERED: LEVOFLOXACIN (250MG) 250 MG TABLET PO SCH (20:00)
== END 2024-03-11 16:45 | DRG 871 ==
LOC: ER 19:00 → TELE1 21:30 → MEDSG1 03-08 10:45
PROVIDERS: ADMIT Nurse Practitioner Family; ATTEND Nurse Practitioner Acute Care
DX: A41.9 Sepsis, unspecified organism (principal); J15.69 Pneumonia due to other Gram-negative bacteria; J96.01 Acute respiratory failure with hypoxia; N17.0 Acute kidney failure with tubular necrosis; E44.0 Moderate protein-calorie malnutrition; D68.69 Other thrombophilia; Z68.41 Body mass index [BMI] 40.0-44.9, adult; R65.20 Severe sepsis without septic shock; I12.9 Hypertensive chronic kidney disease with stage 1 through stage 4 chronic kidney disease, or unspecified chronic kidney disease; N18.9 Chronic kidney disease, unspecified; D50.9 Iron deficiency anemia, unspecified; E03.9 Hypothyroidism, unspecified; E88.09 Other disorders of plasma-protein metabolism, not elsewhere classified; F25.9 Schizoaffective disorder, unspecified; F31.9 Bipolar disorder, unspecified; G62.9 Polyneuropathy, unspecified; F41.9 Anxiety disorder, unspecified; K21.9 Gastro-esophageal reflux disease without esophagitis; E66.01 Morbid (severe) obesity due to excess calories; Z74.01 Bed confinement status; Z88.0 Allergy status to penicillin; Z20.822 Contact with and (suspected) exposure to COVID-19; G47.33 Obstructive sleep apnea (adult) (pediatric); M48.061 Spinal stenosis, lumbar region without neurogenic claudication; K57.30 Diverticulosis of large intestine without perforation or abscess without bleeding
CPT/HCPCS: 36415; 36600; 71045-TC; 76770-TC; 80048-TC; 80076-TC; 82803-TC; 83605-TC; 83735-TC; 83880; 84100-TC; 84484-TC; 85025-TC; 85730-TC; 87040-TC; 87081-TC; 94760-TC; 94762-TC; 94799-TC; A4216; A4223; G0378; J1644; J1956; J3370; J3371; J7030; J7050; J7060; Q0163